=== PATIENT | male | born 1955 | race Caucasian/White ===

== ENCOUNTER 2025-03-02 18:07 | Inpatient (IN) | payer MEDICARE, SELFPAY ==
--- OUTSIDE RECORDS SUMMARY | 2023-11-23 09:38 | XMS_ITS ---
Author Organization [facility] Address [address] [place] [address] Care Team Providers Care Web Content Writer Name Role Phone Chris Menezes Primary Care Provider REASON FOR VISIT Rehab Encounters Encounter Location Date Provider Diagnosis Chris Menezes Md [address] [place], [place] [id number] 11/23/2023 Chris Menezes PLAN OF TREATMENT No Information
--- OUTSIDE RECORDS SUMMARY | 2023-12-16 05:23 | XMS_ITS ---
[facility] Address [address] [place] [address] Care Team Providers Care Forge Shop Supervisor Name Role Phone OchoaChris arriaga Primary Care Provider REASON FOR VISIT Med Rec MEDICATIONS Medication SIG (Take, Route, Frequency, Duration) Notes Start Date End Date Status Thiamine HCl 100 MG 1 tablet Orally Twic e a day Active Magnesium 400 MG as directed Orally Active Rosuvastatin Calcium 10 MG 1 tablet Oral ly Once a day for 30 day(s) Active Lisinopril 5 MG 1 tablet Orally Once a day for 30 day(s) Active Folic Acid 1 MG 1 tablet Orally Once a day for 30 day(s) Active Lisinopril 5 MG 1 tablet Orally Once a day for 90 days Active Encounters Encounter Location Date Provider Diagnosis [facility] [address] [address] 12/16/2023 Chris Menezes Neuropathy G62.9 ; T ype 2 diabetes mellitus with other diabetic kidney complication E11.29 ; Essential hypertension I10 and Anxiety F41.9 ASSESSMENTS Encounter Date Diagnosis Assessment Notes Treatment Notes Treatment Clinical Notes Section Notes 12/16/2023 Neuropathy (ICD-10 - G62.9) 12/16/2023 Type 2 diabetes mellitus with other diabetic kidney complication (ICD-10 - E11.29) 12/16/2023 Essential hypertension (ICD-10 - I10) 12/16/2023 Anxiety (ICD-10 - F41.9) PLAN OF TREATMENT Medication Medication Name Sig Start Date Stop Date Notes Amitriptyline HCl 25 MG 1 tablet at bedt britta Orally Once a day metFORMIN HCl 1000 MG TAKE ONE TABLET BY MOUTH EVERY DAY WITH A MEAL Lisinopril 20 MG 1 tablet Orally Twice a day metFORMIN HCl 1000 MG TAKE ONE TABLET BY MOUTH EVERY DAY LORazepam 0.5 MG TAKE ONE TABLET BY MOUTH EVERY DAY 2022 Furosemide 20 MG TAKE ONE TABLET BY MOUTH EVERY DAY busPIRone HCl 5 MG 1 tablet as needed O rally 3 times a day 01/06/2023 Lisinopril 5 MG 1 tablet Orally Once a day for 90 days
--- OUTSIDE RECORDS SUMMARY | 2023-12-23 06:15 | XMS_ITS ---
Author Organization [facility] Address [address] [place] [address] Care Team Providers Care Chief Clerk Shelter Name Role Phone Kelseabj Chris Primary Care [...] Location Date Provider Diagnosis [facility], [address] [place] [address] 12/23/2023 Chris Menezes Type 2 diabetes bj [...] system. There are likely to be multiple [employer] attendant inaccuracies despite chart review. PLAN OF TREATMENT [...] system. There are likely to be multiple [employer] attendant inaccuracies despite chart review. Progress Notes * [...]
--- OUTSIDE RECORDS SUMMARY | 2024-04-18 07:21 | XMS_ITS ---
Author Organization [facility] Address [address] [place] [address] Care Team Providers Care Senior Oracle Applications Developer Name Role Phone Chris Menezes Primary Care Provider [phone] REASON FOR VISIT No Shows Encounters Encounter Location Date Provider Diagnosis [facility] [address] [place] [address] 04/18/20 24 Chris Menezes PLAN OF TREATMENT No Information
[2025-03-02] VITALS (14 sets, daily range): BP systolic 76–121; BP diastolic 46–77; PULSE 83–135; RESP 17–25; TEMP 36.4–39.3; O2SAT 94–99
--- NOTE | 2025-03-02 | ECG_ITS ---
Test Reason : TACHY SEPSIS Blood Pressure : */* mmHG Vent. Rate : 131 BPM Atrial Rate : 141 BPM P-R Int : 136 ms QRS Dur : 80 ms QT Int : 308 ms P-R-T Axes : -7 -26 -2 degrees QTcB Int : 454 ms Sinus tachycardia with Premature supraventricular complexes Possible Lateral infarct , age undetermined Inferior infarct , age undetermined Abnormal ECG No previous ECGs available Referred By: Giuliano Valdovinos Electronically Signed By: ANGELI LUONG
--- NOTE | ~2025-03-02 | XR_ITS ---
CLINICAL HISTORY: sepsis 1 view chest x-ray Comparison: None provided Findings: [id number]-right bibasilar patchy opacities/atelectasis. No significant pleural effusion or pneumothorax. Prominent cardiac silhouette. No acute fracture. IMPRESSION: [id number]-right bibasilar patchy opacities/atelectasis. This document has been electronically signed by: Willard Jerez MD on 03/02/2025 19:29:05
--- NOTE | ~2025-03-02 | CT_ITS ---
CLINICAL HISTORY: abd pain shock ? mass? ascites cirrhosis CT abdomen and pelvis without contrast Comparison: None provided Findings: Please see same day CT chest report. Gynecomastia. Distended gallbladder with wall thickening, can be seen with hepatocellular disease however is nonspecific. No radiopaque gallstones. Bilateral perinephric stranding, nonspecific. No urolithiasis or hydronephrosis. Pneumoperitoneum with the pocket noted along the anterior abdominal wall as well scattered foci throughout. Diffuse small bowel mural thickening. Moderate/large colorectal stool burden. Colonic diverticulosis pronounced along the sigmoid and descending colon. Extensively diffuse colonic mural thickening more pronounced along the hepatic flexure and ascending colon, with areas of pneumatosis for example series 12, image 42, concerning for ischemia and likely perforation considering the pneumoperitoneum. Additional point of severe bowel mural thickening in the sigmoid colon with pneumatosis and irregularity, this may reflect a perforation point as well. Diffuse small bowel mural thickening. No bowel obstruction. Diffuse mesenteric edema. Fat containing inguinal hernias. Normal appendix. Small volume ascites. Bladder is contracted with mural thickening. Osteopenia with diffuse multilevel spondylosis. Extensively diffuse anasarca. Diffuse atheromatous plaque disease throughout the aorta and branch vessels, without aneurysmal dilatation. Cirrhosis. IMPRESSION: 1. Severe enterocolitis with suspected bowel ischemia and perforation along the ascending or sigmoid colon with pneumoperitoneum as described. Surgical consult advised. 2. 3rd spacing with diffuse anasarca, mesenteric edema and small volume ascites. 3. Cirrhosis. This document has been electronically signed by: Willard Jerez MD on 03/02/2025 23:04:28
--- NOTE | ~2025-03-02 | CT_ITS ---
CLINICAL HISTORY: ? perforated bowel increased free air CT abdomen and pelvis without contrast Comparison: CT abdomen and pelvis most recently earlier on 03/02/2025 Findings: Limited evaluation of soft tissues and solid organs in the absence of IV contrast. Small bilateral pleural effusions, greater on right. Cardiomegaly. Cirrhotic appearance of the liver. Spleen, kidneys and pancreas demonstrate normal nonenhanced appearance. Distended gallbladder. Calcified but nonaneurysmal abdominal aorta. Bladder is decompressed by Johnson catheter. Normal prostate. Nondistended stomach. No small bowel obstruction. Moderate colonic diverticulosis. Moderate volume intra-abdominal ascites and stranding throughout abdominopelvic mesentery. As before, there is segmental thickening throughout the colon most notably around the cecum and right ascending segment. As seen on preceding exam, there are foci of free intraperitoneal air relatively unchanged in overall volume and distribution when compared to prior exam. Continued evidence of pneumatosis throughout the colon most profound within the right ascending segment. No acute osseous abnormality. No lytic or sclerotic osseous lesions. No pathologically enlarged lymph nodes. Impression: 1. Moderate volume ascites and mesenteric edema in the setting of suspected cirrhosis. 2. Relatively unchanged volume and distribution of free intraperitoneal air along with moderate segmental wall thickening throughout colon and small bowel as well as foci of pneumatosis most evident within the right ascending/hepatic flexure colon. Constellation of these findings is therefore concerning for hollow viscus perforation until proven otherwise. In the setting of provided history of recent paracentesis, possibility of the iatrogenic pneumoperitoneum could also be considered. 3. Segmental bowel wall thickening may reflect infectious/inflammatory colitis however ischemic etiology can not be entirely excluded. In the setting of cirrhosis, congestive colopathy is also on the differential. 4. Additional chronic/nonacute findings as above. This document has been electronically signed by: Mamie Carrillo MD on 03/03/2025 01:55:17
--- NOTE | ~2025-03-02 | XR_ITS ---
CLINICAL HISTORY: Status post left internal jugular placement 1 view chest x-ray Comparison: Same date Findings: Left central line tip brachiocephalic junction. Stable left perihilar and right basilar atelectasis. No new parenchymal abnormalities noted. No pneumothorax. Heart size enlarged. No acute bony abnormalities. Impression: Left central line tip at brachiocephalic junction. Stable bilateral atelectasis. This document has been electronically signed by: Matt Guaman MD on 03/02/2025 21:39:22
--- NOTE | ~2025-03-02 | CT_ITS ---
EXAMINATION: CT SOFT TISSUE NECK WITH CONTRAST CLINICAL INFORMATION: Neck abscess from prior area of C line COMPARISON: None available. TECHNIQUE: Following the intravenous administration of 100 mL of Omnipaque 350 intravenous contrast, helical imaging was performed in the axial plane with generation of coronal and sagittal reformatted images. This CT examination was performed using dose optimization techniques as appropriate, variously including the following: *Automated exposure control *Adjustment of mA and/or kV according to patient size (this includes techniques or standardized protocols for targeted exams where dose is matched to indication/reason for exam; i.e. extremities or head) *Use of iterative reconstruction technique FINDINGS: There is bandaging overlying the left lateral neck, with a BB marker placed in the bandaging. There is no underlying mass, abnormal fluid collection, abscess, or abnormal lymph nodes present. Lymph Nodes: -No pathologic lymphadenopathy is present.. Carotid Sheath Structures: -Moderate bilateral carotid bulb calcification is present. This results in left greater than right proximal ICA stenosis, likely greater than 50% on the left. Salivary Glands: -Normal. Tongue Base/Floor of Mouth: -Normal Mucosal Space: -No abnormal enhancing mass is present in the mucosal space. -Normal epiglottis and aryepiglottic folds. -Normal soft palate. -Normal tonsillar pillar soft tissues. Visceral Space: -Thyroid gland: Normal. -Larynx is normal in appearance. The vocal folds are adducted, likely on the basis of breath hold. -The subglottic trachea is patent. -The cervical esophagus is normal. Retropharangeal Space: - Normal. Parapharyngeal Fat Planes: -Normal. Soaking Pits Supervisor Spaces: -Normal. Anterior Cervical Space: -Normal. Imaged Intracranial Contents: -No mass effect, edema, or abnormal enhancement. Cortical and dural venous sinuses are patent. The skull base is normal. Globes and Orbits: -Only partially included. Normal in appearance. Paranasal Sinuses/Mastoids/Tympanic Spaces: -Normally aerated bilaterally. Lung Apices and Superior Mediastinal Structures: -Imaged lung apices are clear and superior mediastinal structures are normal. Bony Structures: -No suspicious bone lesions. No fractures. -Normal TM joints. CT/CT soft tissue neck w IV con IMPRESSION: 1. There is no evidence of abscess or abnormal fluid collection in the left lateral neck, subjacent to the bandaging material. 2. There is no mass or abnormal lymphadenopathy within the neck. 3. Moderate left greater than right carotid bulb calcification, resulting in a probable greater than 50% stenosis of the left ICA at the origin. Electronically signed by: Melquiades Suggs MD 03/13/2025 04:21 PM EDT RP
--- NOTE | ~2025-03-02 | CT_ITS ---
CLINICAL HISTORY: pna CT chest without contrast Comparison: None provided Findings: Cardiomegaly without significant pericardial effusion. Coronary artery calcifications. The visualized thyroid and mediastinum are unremarkable. Gynecomastia. Atelectasis. Dense consolidations in the posterior lower lobes, right more than left with small right and trace left bilateral effusions. Please see same day CT abdomen pelvis report. Thoracic diffuse idiopathic skeletal hyperostosis. Osteopenia. Diffuse anasarca. IMPRESSION: Dense consolidations in the posterior lower lobes, right more than left with small right and trace left bilateral effusions. Developing pneumonia or aspiration not excluded. Attention on follow-up. This document has been electronically signed by: Willard Jerez MD on 03/02/2025 23:05:27
--- NOTE | 2025-03-02 18:40 | ED_ITS ---
HPI - Fever General Chief Complaint: General Medical Stated Complaint: tremors, back pain from snf Time Seen by Provider: 03/02/25 18:37 History of Present Illness ED Provider: Giuliano Valdovinos MD HPI Narrative: 69-year-old male with cirrhosis, ascites, hypertension diabetes from [facility] with fever tachycardia over the last few hours. Patient is chronically ill-appearing dry perhaps mildly confused. He complains of feeling dehydrated only denied a cough chest pain he does feel some abdominal distention worsened baseline. No prior paracentesis. PMH from discharge paperwork: Discharge diagnosis 02/27/2025 from [facility]: Discharge Diagnosis Anemia of chronic disease (D63.8) Ascites (R18.8) HLD (hyperlipidemia) (E78.5) HTN (hypertension) (I10) T2DM (type 2 diabetes mellitus) (E11.9) Failure to thrive in adult (R62.7) Left knee pain (M25.562) Alcohol use disorder (F10.90) Cirrhosis (K74.60) Related Data Allergies Allergy/AdvReac Type Severity Reaction Status Date / Time No Known Allergies Allergy Verified 03/02/25 18:37 [facility] Social History Social History Alcohol intake: former Smoked in Last 30 Days: No Use of substances other than those prescribed or required for medical reasons: No Do you have a plan to hurt others: No Plan Physical Exam 2 Exam: Exam: EXAM: Gen: Chronically ill-appearing, anasarca. Pale with swollen extremities and abdomen. I do not see this but he was covered in feces on arrival thin malodorous diarrhea. Per staff Head: Atraumatic Eyes: Anicteric, Normal conjunctiva. ENT: Moist mucosa, no pallor. ? Neck: JVD Skin: ?No observable rash or bruising on exposed or examined skin Respiratory: Shallow breathing without wheezing or stridor. Diminished air entry due to massive abdominal distention Cardiovascular: Regular rate and rhythm. No murmurs or rub. Well perfused periphery, warm extremities. Pitting edema up the legs bilaterally. Mottling to the feet and knees but brisk cap refill of the toes ? Abdominal: Massive distention with fluid wave moderately tender throughout. No skin lesions : No flank tenderness. Neuro: Alert. Gross movement of all extremities intact. ? Psych: Calm. Cooperative. MSK: No grossly visible deformity. Vital signs: See flowsheet Vital Signs: Vital Signs: Last Vital Signs Temp 98.0 F 03/02/25 20:50 Pulse 94 03/02/25 20:50 Resp 18 03/02/25 20:50 BP 84/57 L 03/02/25 20:50 Pulse Ox 99 03/02/25 18:22 O2 Del Method Nasal Cannula 03/02/25 19:55 Oxygen Flow Rate 4 03/02/25 18:22 BMI result Body Mass Index 30.0 Course Reevaluation(s) Reevaluation #1: Sepsis activated on arrival. Patient appears massively fluid overloaded with distended abdomen ascites severe swelling and anasarca. I think he can still tolerate intravascular fluid but I feel it is more reasonable to calculate ideal body weight for 30 cc/kg bolus secondary to this increased fluid weight ideal body weight calculation as below I will give him 2 L LR as crystalloid bolus to meet this criteria. [place] Body Weight and Adjusted Body Weight from [employer] website on 03/02/2025 All calculations should be rechecked by clinician prior to use RESULT SUMMARY: 146 lbs [place] Body Weight Equivalent to 66 kg INPUTS: Sex ?> 0 = Male Height ?> 67 in Reevaluation #2: 8:57 PM 03/02/2025 (Dr. Giuliano Valdovinos): Focused sepsis re-evaluation /exam performed Medications Administered Generic Name Dose Route Start Last Admin Trade Name Freq PRN Reason Stop Dose Admin Lactated Ringer's 1,000 mls @ 999 mls/hr 03/02/25 19:00 03/02/25 19:15 Lr IV 03/02/25 21:00 999 mls/hr .Q1H1M BLAYNE Administration Albumin Human 100 mls @ 133.333 mls/hr 03/02/25 20:00 03/02/25 20:10 Kedbumin 25 % IV 03/02/25 21:44 133.33 mls/hr Q1H BLAYNE Administration Discontinued Medications Generic Name Dose Route Start Last Admin Trade Name Freq PRN Reason Stop Dose Admin Ceftriaxone Sodium 1 gm 03/02/25 18:37 03/02/25 19:20 Ceftriaxone Sodium 1 Gm Vial IVPUSH 03/02/25 18:38 1 gm ONCE ONE Administration Ceftriaxone Sodium 1 gm 03/02/25 19:21 03/02/25 20:33 Ceftriaxone Sodium 1 Gm Vial IVPUSH 03/02/25 19:22 1 gm ONCE ONE Administration Fentanyl 100 mcg 03/02/25 18:52 03/02/25 19:34 Fentanyl Citrate/Pf 100 Mcg/2 Ml Vial IVPUSH 03/02/25 18:53 100 mcg ONCE ONE Administration Protocol Acetaminophen 1,000 mg in 100 mls @ 400 mls/hr 03/02/25 18:45 03/02/25 19:35 Ofirmev IV 03/02/25 18:59 400 mls/hr ONCE ONE Administration Vancomycin HCl 2,000 mg in 500 mls @ 250 mls/hr 03/02/25 18:45 03/02/25 19:35 Vancomycin/Ns IV 03/02/25 20:44 250 mls/hr ONCE ONE Administration Procedures Procedure Narrative Procedure Narrative: PROCEDURE NOTE Procedure: Paracentesis Performed by: Giuliano Valdovinos MD Indication: rule out spontaneous bacterial peritonitis / therapeutic [place] Protocol: a time out was performed and the correct patient and site were verified ? Procedure: The ascitic fluid collection was identified by ultrasound. Local anesthesia with 5 ml 1% lidocaine infiltrated at site. The site was prepped with chlorhexidine/betadine and full barrier precautions were employed. Under sterile conditions, the patient was placed in the left lateral decubitus position.? Fifty ml of fluid description ascitic fluid was obtained. Samples were sent for appropriate studies. Eventually full amount of ascites taken off was: 3 L ? Post-Procedure Diagnosis: same as indication Complications: none There was a requirement for [id number] 4-0 Prolene suture closure of the wound Estimated Blood Loss:? minimal Specimens Removed: as documented above Prosthetic devices/implants: no Signing Agent(s): none ?CPT: 47467 __ EMERGENCY ULTRASOUND INTERPRETATION-Point of Care abdominal ultrasound [This study was ordered, performed, and interpreted by myself. The study reveals: Impression: -Peritoneum: Large volume ascites [Indication: Abdominal distention and sepsis with cirrhosis Fluid (FAST Views): -Retrovesical/Pelvic: Positive Other views: Performed by: Giuliano Valdovinos MD Images were stored CPT: 18150, Central Line Placement Left IJ: Time Out Performed: Yes Central Line Prep: Chlorhexidine scrub Local Anesthetic: lidocaine 1% Amount of anesthesia used (mL): 5 Ultrasound Used for Placement: Yes Central Line Lumen Inserted: triple Post Procedure: sutured in place, good blood return, all ports aspirated, flushed, capped and sterile dressing applied Post Procedure X-Ray: tip of catheter in good position Patient Tolerated Procedure: well Complications: none Medical Decision Making Medical Decision Making MDM Narrative: Medical Decision Makin-year-old male with cirrhosis end-stage liver disease ascites recently hospitalized in the [facility] system he had falls and was living in a unsafe environment was hospitalized for just a few days apparently had no complications he was imaged because he had fallen with no traumatic injuries. He has been in a fdc since that time on lactulose spironolactone/Lasix and other medications. Spiked a fever today arrived with a severe diarrhea covered in feces tachycardic and febrile. Sepsis activated. [place] body weight fluid bolus, broad-spectrum antibiotics, labs x-ray and peritoneal fluid obtained. Patient appears somewhat confused ammonia sent for possible hepatic encephalopathy. Preliminary Favored Differential Diagnosis: Hepatic encephalopathy, sepsis, pneumonia, UTI, SBP, paracentesis paracentesis among additional considered etiologies Testing Interpreted Independently: ECG interpretation below Chest x-ray 2. Postprocedure shows adequate position of the left internal jugular Radiology or Lab testing Results Reviewed: ?Brief summary of lab review no leukocytosis. Hemoglobin 13. Lactate elevated 4.3 likely secondary to sepsis complicated by underlying cirrhotic disease with poor lactate clearance. Low albumin. Consults: Field Superintendent Independent Historians/External Chart Reviews: ?I independently reviewed discharge summary from 02/27/2025 from [facility] Social Determinants of Health Impacting MDM/Planning: ?See below for details Admission/Observation Consideration of admission/observation: Escalation of care including admission/observation considered Consult Healthcare Provider Management of the patient was discussed with: Hospitalist (Field Superintendent) Lab Data MDM Lab Attestation statement: I reviewed the patient's lab results. 03/02/25 18:51 03/02/25 18:51 Labs: Lab Results 03/02/25 03/02/25 03/02/25 Range/Units 18:51 19:11 19:12 WBC 7.8 (4.8-10.8) X10*3/uL RBC 4.14 L (4.60-5.80) X10*6/uL Hgb 13.2 L (14.0-18.0) g/dl Hct 39.4 L (42.0-52.0) % MCV 95.2 (80.0-98.0) fL MCH 31.9 (27.0-33.0) pg MCHC 33.5 (31.0-36.0) g/dl RDW 13.8 (11.0-16.0) % Plt Count 218 (160-400) X10*3/uL MPV 9.2 L (9.4-12.4) fL Immature Gran % (Auto) 0.4 (0.0-0.4) % Neut % (Auto) 95.6 H (45-73) % Lymph % (Auto) 3.2 L (20-40) % Whitley % (Auto) 0.4 L (2-11) % Eos % (Auto) 0.1 (0-4) % Baso % (Auto) 0.3 (0-2) % Lymph # (Auto) 0.3 L (1.2-4.9) X10*3/uL [place]ley # (Auto) 0.0 L (0.1-1.2) X10*3/uL Eos # (Auto) 0.0 (0.0-0.4) X10*3/uL Baso # (Auto) 0.0 (0.0-0.2) X10*3/uL Abs Immat Gran (auto) 0.03 (0.00-0.03) X10*3/uL Absolute Neuts (auto) 7.4 (2.0-8.3) x10*3/uL Absolute Nucleated RBC 0.000 (0.0-0.012) X10*3/uL Nucleated RBC % (auto) 0.0 (0.0-0.2) /100WBC PT 13.5 H (10.9-12.4) SEC INR 1.2 H (0.9-1.1) APTT 27.0 (26.7-34.1) SEC Sodium 133 L (135-145) mmol/L Potassium 4.3 (3.3-5.1) mmol/L Chloride 98 (96-108) mmol/L Carbon Dioxide 27 (22-29) mmol/L Anion Gap 12 (12-20) BUN 15 (9-16) mg/dL Creatinine 0.77 (0.5-1.4) mg/dL Estim Creat Clear Calc 95.3 Estimated GFR > 60 Random Glucose 100 (60-115) mg/dL Lactic Acid 4.3 H* (0.5-2.0) mmol/L Calcium 8.8 (8.4-10.2) mg/dL Total Bilirubin 1.0 (0.0-1.0) mg/dL AST 60 H (5-37) U/L ALT 22 (0-40) U/L Alkaline Phosphatase 149 H (39-117) U/L Ammonia 50 (13-55) umol/L Troponin I High Sens 12.5 (<3.5-35.0) ng/L NT-Pro-B Natriuret Pep 1503.9 H (<300) pg/mL Total Protein 6.1 L (6.5-8.0) g/dL Albumin 2.7 L (3.5-5.0) g/dL Lipase 16 (8-78) U/L COVID-19 (RALPH) (Negative) COVID-19 Clin Com Influenza Type A (MARCELLO) (Negative) Influenza Type B (MARCELLO) (Negative) Influenza A & B Note 03/02/25 Range/Units 19:40 WBC (4.8-10.8) X10*3/uL RBC (4.60-5.80) X10*6/uL Hgb (14.0-18.0) g/dl Hct (42.0-52.0) % MCV (80.0-98.0) fL MCH (27.0-33.0) pg MCHC (31.0-36.0) g/dl RDW (11.0-16.0) % Plt Count (160-400) X10*3/uL MPV (9.4-12.4) fL Immature Gran % (Auto) (0.0-0.4) % Neut % (Auto) (45-73) % Lymph % (Auto) (20-40) % [place] % (Auto) (2-11) % Eos % (Auto) (0-4) % Baso % (Auto) (0-2) % Lymph # (Auto) (1.2-4.9) X10*3/uL [place] # (Auto) (0.1-1.2) X10*3/uL Eos # (Auto) (0.0-0.4) X10*3/uL Baso # (Auto) (0.0-0.2) X10*3/uL Abs Immat Gran (auto) (0.00-0.03) X10*3/uL Absolute Neuts (auto) (2.0-8.3) x10*3/uL Absolute Nucleated RBC (0.0-0.012) X10*3/uL Nucleated RBC % (auto) (0.0-0.2) /100WBC PT (10.9-12.4) SEC INR (0.9-1.1) APTT (26.7-34.1) SEC Sodium (135-145) mmol/L Potassium (3.3-5.1) mmol/L Chloride (96-108) mmol/L Carbon Dioxide (22-29) mmol/L Anion Gap (12-20) BUN (9-16) mg/dL Creatinine (0.5-1.4) mg/dL Estim Creat Clear Calc Estimated GFR Random Glucose (60-115) mg/dL Lactic Acid (0.5-2.0) mmol/L Calcium (8.4-10.2) mg/dL Total Bilirubin (0.0-1.0) mg/dL AST (5-37) U/L ALT (0-40) U/L Alkaline Phosphatase (39-117) U/L Ammonia (13-55) umol/L Troponin I High Sens (<3.5-35.0) ng/L NT-Pro-B Natriuret Pep (<300) pg/mL Total Protein (6.5-8.0) g/dL Albumin (3.5-5.0) g/dL Lipase (8-78) U/L COVID-19 (RALPH) Negative (Negative) COVID-19 Clin Com See Note Influenza Type A (MARCELLO) Negative (Negative) Influenza Type B (MARCELLO) Negative (Negative) Influenza A & B Note See Note Independent Interpretation I performed an independent interpretation of an: EKG (Tachycardic irregular but sinus. Rate 131 no ischemic changes. Question multifocal atrial tachycardia) External Record Review External record reviewed: Inpatient record Copied text from inpatient discharge summary 02/27/2025 [facility]: ?This is a 69 year old male with history of HTN, HLD, T2DM, alcoholic liver cirrhosis who is brought to the ER with concerns for his well being. He called 911 on himself on 02/21, was found laying on his floor covered in excrement of himself and his pets, the home was unfit for living. He had been having pain in his left knee, falling frequently because it was giving out on him, and crawling around on the floor to get around. He denied any other injury. Denies current alcohol use. He was observed in the ER for several days. His lab work was stable/unremarkable. CT head, cervical spine, CXR and knee XR were all without traumatic injury or acute process. He has mild osteoarthritis in the knee. CT abdomen later done was without significant findings. He has been boarding in the ER for several days, thus admitted to medicine pending further disposition.? ? Prescription Management I considered prescription management with: Antibiotic Chronic Conditions Patient?s care impacted by: Other (Liver disease ascites) Critical Care Time Critical Care Time Critical Care Time: Yes Total Critical Care Time: 100 Attestation: ED Critical Care: Severe sepsis, acute decompensated liver Authorized and Performed by: Giuliano Valdovinos MD Total critical care time: Approximately 100 min Due to a high probability of clinically significant, life threatening deterioration, the patient required my highest level of preparedness to intervene emergently and I personally spent this critical care time directly and personally managing the patient. This critical care time included obtaining a history; examining the patient; pulse oximetry; ordering and review of studies; arranging urgent treatment with development of a management plan; evaluation of patient's response to treatment; frequent reassessment; and, discussions with other providers. This critical care time was performed to assess and manage the high probability of imminent, life-threatening deterioration that could result in multi-organ failure. It was exclusive of separately billable procedures and treating other patients and teaching time. Discharge Plan Discharge Clinical Impression: Severe sepsis Patient Disposition: Admitted As Inpatient
[2025-03-02 19:09] LABS: Hematocrit 39.4 % (42.0-52.0); Hemoglobin 13.2 g/dl (14.0-18.0); Imm Gran Abs Auto 0.03 X10*3/uL (0.00-0.03); Imm Gran Pct Auto 0.4 % (0.0-0.4); Lymphocytes Absolute Auto 0.3 X10*3/uL (1.2-4.9); MANUAL DIFF FLAG SCAN; Mean Corpuscular HGB Conc 33.5 g/dl (31.0-36.0); Mean Corpuscular Hemoglobin 31.9 pg (27.0-33.0); Mean Corpuscular Volume 95.2 fL (80.0-98.0); NRBC Abs Auto 0.000 X10*3/uL (0.0-0.012); NRBC Pct Auto 0.0 /100WBC (0.0-0.2); Platelet Count 218 X10*3/uL (160-400); Red Blood Count 4.14 X10*6/uL (4.60-5.80); SCAN SMEAR FLAG 1; White Blood Count 7.8 X10*3/uL (4.8-10.8)
[2025-03-02] MEDS: Lactated Ringers 1,000 ML 999 ML IV ×2 (19:15→20:50)
[2025-03-02 19:19] LABS: INTERNATIONAL NORM RATIO 1.2 (0.9-1.1); Prothrombin Time 13.5 SEC (10.9-12.4)
[2025-03-02 19:21] LABS: Partial Thromboplastin Time 27.0 SEC (26.7-34.1)
[2025-03-02 19:34] LABS: Alanine Aminotransferase 22 U/L (0-40); Albumin Level 2.7 g/dL (3.5-5.0); Alkaline Phosphatase 149 U/L (39-117); Anion Gap 12 (12-20); Aspartate Amino Transferase 60 U/L (5-37); Blood Urea Nitrogen 15 mg/dL (9-16); Calcium 8.8 mg/dL (8.4-10.2); Carbon Dioxide 27 mmol/L (22-29); Chloride 98 mmol/L (96-108); Creatinine Clr Calc Pharmacy 95.3; Estimated Glomerular Filt Rate > 60; Lipase 16 U/L (8-78); Potassium 4.3 mmol/L (3.3-5.1); Sodium 133 mmol/L (135-145); Total Protein 6.1 g/dL (6.5-8.0)
[2025-03-02] MEDS: vancomycin/NS 2,000 MG/500 ML PLAST..BAG 250 MG IV (19:35)
[2025-03-02 19:44] LABS: Ammonia 50 umol/L (13-55)
[2025-03-02 19:58] LABS: NT Pro B Type Natriuretic Pept 1503.9 pg/mL (<300); Troponin-I High Sensitivity 12.5 ng/L (<3.5-35.0)
[2025-03-02] MEDS: Albumin Human 25 % 100 ML 133.33 ML IV ×3 (20:10→23:17)
[2025-03-02 20:12] LABS: COVID-19 Test Negative (Negative); IDNOW Serial# 6674DD1D
[2025-03-02 20:16] LABS: IDNOW Serial# 08D9AD1C; Influenza B2 Negative (Negative)
--- NOTE | 2025-03-02 20:50 | PC.NURSE ---
2L LR hung at 191, completed at 2049. (MAR documentation was saved incorrectly after scanning 1L.)
--- NOTE | 2025-03-02 21:00 | PC.NURSE ---
Delay in vancomycin completion due to pt requiring bedside paracentesis, becoming hypotensive, requiring multiple medications and central line placement. MD aware and @ bedside.
[2025-03-02 21:03] LABS: Reflex Lactate? Lactic Acid Added
--- OUTSIDE RECORDS SUMMARY | 2025-03-02 21:07 | XMS_ITS | Patient Health Record ---
[facility] Address [address] [place] [address] Care Team Providers Care Maintenance Instructor Name Role Phone Chris Menezes Primary Care Provider ALLERGIES No Known Allergies REASON FOR REFERRAL No Information MEDICATIONS Medication SIG (Take, Route, Frequency, Duration) Notes Start Date End Date Status metFORMIN HCl 1000 MG TAKE ONE TABLET BY MOUTH EVERY DAY Active Rosuvastatin Calcium 10 MG TAKE ONE TABL ET BY MOUTH EVERY DAY for 90 Active Lisinopril 5 MG 1 tablet Orally Once a day for 30 day(s) Active Rosuvastatin Calcium 10 MG 1 tablet Oral ly Once a day Active Lisinopril 20 MG 1 tablet Orally Twic e a day Active Furosemide 20 MG TAKE ONE TABLET BY M OUTH EVERY DAY Active Magnesium 400 MG as directed Orally Active Thiamine HCl 100 MG 1 tablet Orally Twic e a day Active Rosuvastatin Calcium 10 MG 1 tablet Oral ly Once a day for 30 day(s) Active Folic Acid 1 MG 1 tablet Orally Once a day for 30 day(s) Active Amitriptyline HCl 25 MG 1 tablet at bedt britta Orally Once a day Active Lisinopril 5 MG 1 tablet Orally Once a day for 90 days Active IMMUNIZATIONS Vaccine Route Administration Date Status Comme nts *Influenza (Fluarix Quad) IM Intramuscular 03/26/2020 Admi nistered *Influenza (Fluarix Quad) IM Intramuscular 05/05/2022 Admi nistered Influenza (Flucelvax Quad) Unknown 03/14/2021 Administe red Pneumococcal IM Intramuscular 10/05/2014 Administered Pneumococcal IM Intramuscular 03/26/2020 Administered SOCIAL HISTORY Tobacco Use: Social History Observation [...] Never (0 point) Points 5 Interpretation Positive PROBLEMS Problem Type ICD Code Onset Dates Problem Status W/U Status Risk SNOMED Code Notes Problem Anxiety (F41.9) Active confirmed 351338 02 Problem Neuropathy (G62.9) Active confirmed 370979560 Problem Anxiety disorder, unspecified (F41.9) Active confirmed Anxiety disorde r (367544711) Problem Generalized anxiety disorder (F41.1) Active confirmed 37783659 Problem Type 2 diabetes mellitus 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) Active confirmed 36110721 Problem Primary insomnia (F51.01) Active confirmed 8331777 Problem Mixed hyperlipidemia (E78.2) Active confirmed 375456037 Problem Obstructive sleep apnea (G47.33) Active confirmed 02488910 Problem Type 2 diabetes mellitus without complication (E11.9) Active confirmed Type II diabete s mellitus without complication (324827611) Problem Essential hypertension (I10) Active confirmed 25560460 Problem Allergic rhinitis, unspecified allergic rhinitis type (J30.9) Active confirmed 06944907 Problem Osteoarthritis of both hips, unspecified osteoarthritis type (M16.0) Active confirmed 899461038 Problem detention (current) use of oral hypoglycemic drugs (Z79.84) Active confirmed 042723395544342 Problem Type 2 diabetes mellitus with diabetic mononeuropathy, without long-term current use of insulin (E11.41) Active confirmed Mononeuropa thy associated with type II diabetes mellitus (372342416) Encounters Encounter Location Date Provider Diagnosis [facility] [address] [address] 04/18/20 24 Chris Menezes PLAN OF TREATMENT Pending Test Test Name Order Date MRI : Lumbosacral Spines 01/18/2017 Colonoscopy 01/29/2022 GUAIAC, SINGLE SPECIMEN 12/19/2019 GUAIAC, SINGLE SPECIMEN 11/23/2016 GUAIAC, SINGLE SPECIMEN 10/11/2015 GUAIAC, SINGLE SPECIMEN 11/30/2017 *EKG 12/20/2012 Drain/Inject Joint/Bursa (MEDIUM) 2017 PSA 11/23/2016 PSA 07/10/2019 PSA 07/20/2017 PSA 06/21/2014 PSA 10/01/2015 HEMOGLOBIN A1C 06/21/2014 HEMOGLOBIN A1C 10/01/2015 HEMOGLOBIN A1C 03/16/2017 HEMOGLOBIN A1C 07/10/2019 HEMOGLOBIN A1C 12/24/2020 HEMOGLOBIN A1C 12/19/2019 HEMOGLOBIN A1C 10/05/2014 HEMOGLOBIN A1C 07/20/2017 HEMOGLOBIN A1C 01/28/2015 HEMOGLOBIN A1C 11/23/2016 HEMOGLOBIN A1C 01/14/2016 HEMOGLOBIN A1C 06/10/2015 HEMOGLOBIN A1C 03/06/2014 HEMOGLOBIN A1C 07/23/2016 HEMOGLOBIN A1C 04/22/2016 COMPREHENSIVE METABOLIC PANL 07/10/2019 COMPREHENSIVE METABOLIC PANL 07/20/2017 COMPREHENSIVE METABOLIC PANL 10/01/2015 COMPREHENSIVE METABOLIC PANL 06/21/2014 LIPID PANEL 06/21/2014 LIPID PANEL 07/10/2019 LIPID PANEL 12/24/2020 LIPID PANEL 07/20/2017 LIPID PANEL 01/28/2015 LIPID PANEL 04/22/2016 LIPID PANEL 11/23/2016 HEPATIC FUNCTION PANEL 04/22/2016 HEPATIC FUNCTION PANEL 11/23/2016 HEPATIC FUNCTION PANEL 01/28/2015 HEPATIC FUNCTION PANEL 12/24/2020 THYROID PANEL 07/10/2019 THYROID PANEL 07/20/2017 THYROID PANEL 06/21/2014 THYROID PANEL 10/01/2015 URINARY MICROALBUMIN 10/01/2015 URINARY MICROALBUMIN 06/21/2014 URINARY MICROALBUMIN 07/10/2019 URINARY MICROALBUMIN 07/20/2017 25OH VITAMIN D 07/20/2017 25OH VITAMIN D 07/10/2019 25OH VITAMIN D 10/01/2015 25OH VITAMIN D 06/21/2014 COMPLETE CBC WITH DIFF 06/21/2014 COMPLETE CBC WITH DIFF 10/01/2015 COMPLETE CBC WITH DIFF 07/10/2019 COMPLETE CBC WITH DIFF 07/20/2017 LYME AB 04/22/2016 URINE DIPSTICK 06/21/2014 COMPLETE URINALYSIS 10/01/2015 COMPLETE URINALYSIS 07/20/2017 COMPLETE URINALYSIS 07/10/2019 25OH VITAMIN D 10/21/2021 25OH VITAMIN D 12/15/2022 AMMONIA, VENOUS 01/29/2022 CBC (COMPLETE BLOOD COUNT) WITH DIFF CBC (COMPLETE BLOOD COUNT) WITH DIFF COMPREHENSIVE METABOLIC PANEL 10/21/2021 COMPREHENSIVE METABOLIC PANEL 12/15/2022 GGTP 01/29/2022 HEMOGLOBIN A1C 04/09/2021 HEMOGLOBIN A1C 01/29/2022 HEMOGLOBIN A1C 10/21/2021 HEMOGLOBIN A1C 05/05/2022 HEMOGLOBIN A1C 04/28/2023 HEMOGLOBIN A1C 12/15/2022 HEPATIC FUNCTION PANEL 05/05/2022 LIPID PANEL 05/05/2022 LIPID PANEL 12/15/2022 LIPID PANEL 10/21/2021 MICROALBUMIN, URINE 10/21/2021 MICROALBUMIN, URINE 12/15/2022 PSA, SCREEN 10/21/2021 PSA, SCREEN 12/15/2022 THYROID PANEL (TSH, FT4) 12/15/2022 THYROID PANEL (TSH, FT4) 10/21/2021 URINALYSIS, COMPLETE 12/15/2022 URINALYSIS, COMPLETE 10/21/2021 Insurance Providers Payer Name Payer Address Payer Phone Subscriber Number Group Number Insured Name Patient Relationship to Insured Coverage Start Date Coverage End Date [facility] [address] [place] [address] [phone] [id number] Maxim Rice Self - patient is the insured MEDICAL (GENERAL) HISTORY Medical History History ICD Code HTN DM2 Hyperlipidemia COPD Sleep Apnea Allergic Rhinitis Surgical History Surgery Date(Month/Year) tonsillectomy as a child Hospitalization History Reason Date(Month/Year) for above procedure
--- NOTE | 2025-03-02 21:14 | PM.CCHP ---
History of Present Illness Date of Service: 03/02/25 Attending physician on admission: Dany Bah Chief Complaint: Acute septic shock, acute hypovolemic shock 69-year-old male with underlying alcohol related cirrhosis, ascites, type 2 diabetes, hyperlipidemia, hypertension, anemia of chronic disease who is a resident of senior care facility, was transported to the emergency room due to complaints of tremors, back pain, fever and tachycardia.? The patient states that he has been feeling sick for the past 24 hours but worse today, he feels thirsty, admits having some generalized malaise and mild cough without any sputum production.? However he states that he had excruciating pain in his abdomen since last night and out of 10, in a diffuse manner without any other radiation, nothing made it better or worse but some how his pain got better later on this mid afternoon and is now somewhat tolerable around 5/10.? Denies any nausea, vomiting. In the emergency room, the patient was noted to be febrile 102.8, tachycardic at 01:35, tachypneic 25, initially borderline hemodynamically stable but suddenly became hypotensive with the lowes blood pressure of 76/50, he did receive 2 L of IV fluids, 1 bag of albumin, Rocephin and vancomycin.? The rest of his workup showed no white count, H and H of 13.2 and 39.4 respectively, platelets 218, PT 13.5 INR 1.2, sodium 131, potassium 4.2, chloride 100, carbon dioxide 23, anion gap 12, BUN 15, creatinine 0.73, random glucose 188, lactic acid 4.3, repeated lactic acid 4.9, calcium 8.1, total bilirubin 0.8 albumin 2.7, lipase 16.? Peritoneal fluid analysis is pending.? Respiratory workup negative.? Chest x-ray shows left greater than right bibasilar patchy opacities and/or atelectasis.? Follow-up x-ray after triple-lumen placement shows the tip of the CVL at the brachiocephalic junction. ?However there are no abdominal images. I will request CT chest, abdomen and pelvis images, I have also asked them to start him on high concentration Levophed, to stop all IV fluids and to transfer him to the ICU for further care. ? Review of Systems Review of Systems: Review of systems: As above, otherwise the patient denies any prior history of strokes, cold intolerance, migraine headaches, head trauma, no eyes, ears or nose problems, no problems swallowing or with phonation, no thyroid disease, denies any history of chest pain, palpitations, coronary disease, cough, sputum production, pneumonia, bronchitis, COPD or emphysema, abdominal pain, nausea, vomiting, diarrhea, abdominal surgeries, melena, hematochezia, hematemesis, hematuria, kidney stones, immunocompromise state of any kind, no history of DVT or PE, fractures or extremity surgeries all other review of systems were reviewed and they were all negative. [facility] Social History Social History Housing: Other Housing Other:: [facility] Alcohol intake: former Patient Tobacco Use Status: Former Tobacco user Smoked in Last 30 Days: No Use of substances other than those prescribed or required for medical reasons: No Currently Displaying Signs/Symptoms of Drug Intoxication Withdrawal: No Have you been hit, kicked, punched, or otherwise hurt by someone within the past year? If so, by whom?: No Do you feel safe in your current relationship?: No Current Relationship Is there a partner from a previous relationship who is making you feel unsafe now?: No Are you made to feel afraid or neglected: No Advance Directives: Yes Advance Directives on File: Yes Advance Directives Date on File: 03/02/25 Do you have a plan to hurt others: No Plan Recently lost weight without trying: Unsure Eating poorly because of decreased appetite: No Nutrition Risks: No Nutritional Risk Poor oral hygiene: Yes Meds Allergies Allergy/AdvReac Type Severity Reaction Status Date / Time No Known Allergies Allergy Verified 03/02/25 18:37 Active Medications: Current Medications Albumin Human (Kedbumin 25 %) 100 mls @ 133.333 mls/hr IV Q1H [facility] Stop: 03/02/25 21:44 Last Admin: 03/02/25 20:10 Dose: 133.33 mls/hr Norepinephrine Bitartrate (Levophed) 8 mg in 250 mls @ 0 mls/hr IVCONT .Q0M [facility]; Protocol Norepinephrine Bitartrate (Levophed) 32 mg in 250 mls @ 0 mls/hr IVCONT .Q0M [facility]; Protocol Albumin Human (Kedbumin 25 %) 100 mls @ 133.333 mls/hr IV Q1H [facility] Stop: 03/02/25 22:59 Piperacillin Sod/Tazobactam (Sod 3.375 gm/ Sodium Chloride) 50 mls @ 100 mls/hr IV Q6H [facility] Home Medications ?Medication ?Instructions ?Recorded ?Confirmed ?Last Taken ?Type bisacodyl 10 mg rectal suppository 10 mg LA DAILY PRN Constipation 03/02/25 03/02/25 Unknown History cetylpyridinium chloride 1 cecelia mucous membrane Q3H PRN Sore 03/02/25 03/02/25 Unknown History Throat folic acid 1 mg tablet 1 mg PO DAILY 03/02/25 03/02/25 Unknown History furosemide 20 mg tablet 30 mg PO DAILY 03/02/25 03/02/25 Unknown History ibuprofen 600 mg tablet 600 mg PO BID 03/02/25 03/02/25 Unknown History lactulose 10 gram/15 mL oral 15 ml PO DAILY 03/02/25 03/02/25 Unknown History solution magnesium hydroxide 400 mg/5 mL 30 ml PO DAILY PRN Constipation 03/02/25 03/02/25 Unknown History oral suspension (Milk of Magnesia) methyl salicylate-menthol topical 1 appl topical BID PRN knee pain 03/02/25 03/02/25 Unknown History cream naltrexone 50 mg tablet 25 mg PO DAILY 03/02/25 03/02/25 Unknown History sodium phosphates 19 gram-7 118 ml LA DAILY PRN Constipation 03/02/25 03/02/25 Unknown History gram/118 mL enema (Fleet Enema) acetaminophen 325 mg tablet 650 mg PO Q4H PRN pain or fever 03/03/25 03/03/25 Unknown History >101 acetaminophen 650 mg rectal 650 mg LA Q4H PRN pain or fever 03/03/25 03/03/25 Unknown History suppository >101 nicotine 7 mg/24 hr daily 1 patch transdermal Q24H 03/03/25 03/03/25 Unknown History transdermal patch pyridoxine (vitamin B6) 50 mg 50 mg PO DAILY 03/03/25 03/03/25 Unknown History tablet sennosides 8.6 mg tablet (senna) 17.2 mg PO DAILY 03/03/25 03/03/25 Unknown History spironolactone 25 mg tablet 25 mg PO DAILY 03/03/25 03/03/25 Unknown History thiamine HCl (vitamin B1) 100 mg 100 mg PO BID 03/03/25 03/03/25 Unknown History tablet Physical Exam Vital Signs: Vital Signs: Last Vital Signs Temp 98.0 F 03/02/25 20:50 Pulse 99 03/02/25 20:56 Resp 18 03/02/25 20:56 BP 92/52 L 03/02/25 20:56 Pulse Ox 99 03/02/25 20:56 O2 Del Method Nasal Cannula 03/02/25 20:56 O2 Flow Rate 2 03/02/25 20:56 Oxygen Flow Rate 4 03/02/25 18:22 BMI result Body Mass Index 30.0 Sepsis exam done at 21:00 General:? Alert orientedto person not to place or time. No accessory muscle usage.? Following all commands. Skin:? Edematous throughout from the feet all the way up to the scrotum in sacral area, abdomen.? There is hyperpigmented area in the anterior tibials bilateral left more than right. HEENT:? Head is normocephalic, atraumatic, pupils equal. Buccal mucosa is dry.? Cardiac:? Clear S1-S2, no murmurs rubs or gallops.? Left IJ triple-lumen. Pulmonary:? Diminished lung sounds bilaterally fine expiratory wheezing bilaterally .? Coarseness and fine rhonchi are noted at the right base more than left.? Minimal crackles.? Abdomen:? Protuberant, large, distended, there is no tenderness to percussion, there is however tenderness over the right upper and left lower quadrant upon light and more so with deep palpation, minimal rebound, no guarding. No CVA tenderness. Musculoskeletal:? Moving all 4 extremities upon request a major joints, there is no crepitus or tenderness.? The strength is 5/5 bilaterally and throughout all 4 extremities.? There is leg edema as above noted , no calf tenderness , no leg asymmetry.? Gait not assessed at this point. Neurologic:? As above.? No focal deficits noted. Vascular:? 2+ pulses upper extremities, lower extremity pulses 1+ with Doppler and difficult to assess due to significant edema..? Less than 2nd capillary refill of fingers and toes bilaterally upper and lower extremities Results Labs 03/03/25 04:57 03/03/25 04:56 Labs: Laboratory Results - last 24 hr 03/02/25 03/02/25 03/02/25 18:51 19:11 19:12 MCV 95.2 MCH 31.9 MCHC 33.5 RDW 13.8 Plt Count 218 MPV 9.2 L Immature Gran % (Auto) 0.4 Neut % (Auto) 95.6 H Lymph % (Auto) 3.2 L Brule % (Auto) 0.4 L Eos % (Auto) 0.1 Baso % (Auto) 0.3 Lymph # (Auto) 0.3 L Brule # (Auto) 0.0 L Eos # (Auto) 0.0 Baso # (Auto) 0.0 Abs Immat Gran (auto) 0.03 Absolute Neuts (auto) 7.4 Absolute Nucleated RBC 0.000 Nucleated RBC % (auto) 0.0 Smear Tech's Comments VERIFIED PT 13.5 H INR 1.2 H APTT 27.0 Anion Gap 12 Estim Creat Clear Calc 95.3 Estimated GFR > 60 Random Glucose 100 Lactic Acid 4.3 H* Calcium 8.8 Total Bilirubin 1.0 AST 60 H ALT 22 Alkaline Phosphatase 149 H Ammonia 50 Troponin I High Sens 12.5 NT-Pro-B Natriuret Pep 1503.9 H Total Protein 6.1 L Albumin 2.7 L Lipase 16 COVID-19 ([facility]) COVID-19 Clin Com Influenza Type A (MARCELLO) Influenza Type B (MARCELLO) Influenza A & B Note 03/02/25 19:40 MCV MCH MCHC RDW Plt Count MPV Immature Gran % (Auto) Neut % (Auto) Lymph % (Auto) Brule % (Auto) Eos % (Auto) Baso % (Auto) Lymph # (Auto) Brule # (Auto) Eos # (Auto) Baso # (Auto) Abs Immat Gran (auto) Absolute Neuts (auto) Absolute Nucleated RBC Nucleated RBC % (auto) Smear Tech's Comments PT INR APTT Anion Gap Estim Creat Clear Calc Estimated GFR Random Glucose Lactic Acid Calcium Total Bilirubin AST ALT Alkaline Phosphatase Ammonia Troponin I High Sens NT-Pro-B Natriuret Pep Total Protein Albumin Lipase COVID-19 ([facility]PH) Negative COVID-19 Clin Com See Note Influenza Type A (MARCELLO) Negative Influenza Type B (MARCELLO) Negative Influenza A & B Note See Note Assessment and Plan (1) Septic shock: Status: Acute Plan 1. Acute septic sock 2. Acute hypovolemic/distributive shock due to 3rd spacing and central depletion 3. Bibasilar pneumonia Right greater than left 4. Acute lactic and metabolic acidosis due to the above 5. Anasarca 6. Hypoalbuminemia 7. Hypervolemic hyponatremia due to 3rd spacing and liver disease likely cirrhosis 8. Normocytic anemia rule out iron deficiency, chronic disease, microscopic bleeding 9. Ascites status post paracentesis (3 L) 10. Pseudo hypocalcemia with corrected calcium of 9.0 PLAN OF CARE: The patient will be admitted to the ICU, monitor vital signs, I's and o's, I have discontinued IV fluid for the patient is already anasarca, albumin repletion, high concentration Levophed, IV Zosyn which will cover both intra-abdominal and pulmonary pathologies. ?I do not believe the patient has peritonitis, we will follow laboratories, Lasix drip, iron panel, occult blood.? When hemodynamically stable we will obtain CT of the chest, abdomen and pelvis.? Hepatitis panel.? Follow-up on peritoneal fluid results.? Sputum culture and Gram stain, urinalysis. Follow-up Sepsis exam done at 23:00 121/77, 88, 16, 96% on 2 L nasal cannula, on Levophed. General:? Alert orientedto person not to place or time. ?No acute distress. Skin:? As above no changes. Cardiac:? Clear S1-S2, no murmurs rubs or gallops.? Left IJ triple-lumen. Pulmonary:? Diminished lung sounds bilaterally fine expiratory wheezing bilaterally .? Coarseness and fine rhonchi are noted at the right base more than left.? Minimal crackles.? Abdomen: Large, distended, no bowel sounds appreciated. Soft, minimally tender to deep palpation throughout but mostly at the left lower quadrant without rebound, no guarding. Neurologic:? As above.? No focal deficits noted. Vascular:? 2+ pulses upper extremities, lower extremity pulses 1+ with Doppler and difficult to assess due to significant edema. Less than 2nd capillary refill of fingers and toes bilaterally upper and lower extremities. 2147 CT abdomen and pelvis IMPRESSION: 1. Severe enterocolitis with suspected bowel ischemia and perforation along the ascending or sigmoid colon with pneumoperitoneum as described. Surgical consult advised. 2. 3rd spacing with diffuse anasarca, mesenteric edema and small volume ascites. 3. Cirrhosis. Chest CT IMPRESSION: Dense consolidations in the posterior lower lobes, right more than left with small right and trace left bilateral effusions. Developing pneumonia or aspiration not excluded. Attention on follow-up. REVISED ASSESSMENT: 1. Severe enterocolitis with suspected bowel ischemia and perforation along the ascending or sigmoid colon with pneumoperitoneum. Continue with pressor support, stat surgical consult has been requested, fluconazole 200 mg IV x1. Type and Screen added. [address] Salazar (General Surgeon) who is aware of all the CT findings, clinical presentation and current treatment.? She will review the images and will call us back. 2340 I reached out to the above-mentioned surgeon, she is reviewing the films and we will talk to Radiology, then will advised. [address] Salazar who reviewed the images and discussed them with the radiologist, given that the patient did have a paracentesis done in the emergency room, they questioned that the free air is related to that, however the fact that he does have colitis and wall thickening raises the question of true bowel perforation. ?She kindly requested to repeat the CT abdomen and pelvis stat looking for increased free air which would point in the real direction of the actual clinical scenario.? In the meantime, she will come to see the patient. 0130 Dr. Salazar in to see the patient, she is aware the repeat CT is done and that lactic Acid not better, free air focci on the right and paracentesis was on the left. [address] Impression: 1. Moderate volume ascites and mesenteric edema in the setting of suspected cirrhosis. 2. Relatively unchanged volume and distribution of free intraperitoneal air along with moderate segmental wall thickening throughout colon and small bowel as well as foci of pneumatosis most evident within the right ascending/hepatic flexure colon. Constellation of these findings is therefore concerning for hollow viscus perforation until proven otherwise. In the setting of provided history of recent paracentesis, possibility of the iatrogenic pneumoperitoneum could also be considered. 3. Segmental bowel wall thickening may reflect infectious/inflammatory colitis however ischemic etiology can not be entirely excluded. In the setting of cirrhosis, congestive colopathy is also on the differential. 4. Additional chronic/nonacute findings as above. 0230 Dr. Salazar has reviewed the new images and advises to continue medical treatment, no surgical intervention at this point. Suggest repeating a diagnostic paracentesis in the morning to recheck for culture, cell count and differential. 0630 the patient remains hemodynamically stable still on pressors. The patient does not appear to be in any acute distress, his abdominal exam has not changed with the exception the there is no tenderness to light or deep palpation, no rebound or guarding. His white count however has gone up to 34,000. GI PROPHYLAXIS:? IV ppi DVT PROPHYLAXIS:? Pneumatic stockings only, the patient has high risk of bleeding given history of liver disease. This patient counter and care had a high probability of a clinically significant, sudden, or life threatening deterioration of this patient's condition which required my full and direct attention, intervention and personal management. Critical care time used for critical evaluation of this patient, diagnosis, treatment and coordination of care, review her records and documentation TOTAL CRITICAL 120 CARE TIME??MIN . discussion and coordination with consultants, completely separate from any procedures performed. Patient's care was discussed in detail with Dr. Bah who is aware of all the above as well as the plan of care for this patient. Total time managing care of this patient today: 120 minutes.
[2025-03-02 21:28] LABS: MN% 68.8 %; PMN% 31.2 %; WBC Peritoneal Fluid 0.280 X10*3/uL
[2025-03-02 21:43] LABS: ~Lactic Acid-LAB USE ONLY 4.9 mmol/L (0.5-2.0)
--- NOTE | 2025-03-02 22:00 | HO.NURTONUR ---
Telephone report given to DIRECTOR OF MARKETING AND PROMOTIONS. Questions answered, awaiting transport.
[2025-03-02 22:05] LABS: Lymphocyte Peritoneal Fl 15 %; Monocytes Peritoneal Fl 6 %; Neutrophils Peritoneal Fluid 20 %
[2025-03-02 22:06] LABS: BF Shift QC OK YES; Other Peritioneal Fl 59 %
[2025-03-02 22:11] LABS: Glucose, Whole Blood 188 mg/dL (60-115)
[2025-03-02] MEDS: Norepinephrine Bitartrate/NS 32 MG/250 ML PLAST..BAG IVCONT (22:25)
--- NOTE | 2025-03-02 22:34 | PHA.MEDREC ---
Addendum entered by Areli Velasco RPh 03/03/25 07:36: Remainder of medication list obtained from [facility]. Med rec complete and provider notified. Original Note: Pharmacy Consult ? Medication Reconciliation Pharmacy has completed the medication reconciliation. [facility] only sent odd number of pages only, confirmed what I could. will have morning med rec team follow up tomorrow.
[2025-03-02] MEDS: Furosemide 40 MG/4 ML VIAL IVPUSH (23:12)
[2025-03-02] MEDS: Furosemide 200 MG in 0.9 % Sodium Chloride 80 ML IVCONT (23:15)
[2025-03-02 23:24] LABS: Reflex Lactate? 2 Y
[2025-03-02 23:30] LABS: Alanine Aminotransferase 15 U/L (0-40); Albumin Level 2.7 g/dL (3.5-5.0); Alkaline Phosphatase 83 U/L (39-117); Anion Gap 12 (12-20); Aspartate Amino Transferase 58 U/L (5-37); Blood Urea Nitrogen 15 mg/dL (9-16); Calcium 8.1 mg/dL (8.4-10.2); Carbon Dioxide 23 mmol/L (22-29); Chloride 100 mmol/L (96-108); Creatinine Clr Calc Pharmacy 100.5; Estimated Glomerular Filt Rate > 60; Potassium 4.2 mmol/L (3.3-5.1); Sodium 131 mmol/L (135-145); Total Protein 5.2 g/dL (6.5-8.0)
[2025-03-02] MEDS: metroNIDAZOLE/NS 500 MG/100 ML PIGGYBACK 100 MG IV (23:45)
[2025-03-03] VITALS (25 sets, daily range): BP systolic 92–117; BP diastolic 54–73; PULSE 59–85; RESP 12–20; TEMP -12.4–37.1; O2SAT 91–98
[2025-03-03 00:08] LABS: ~Lactic Acid-LAB USE ONLY 4.2 mmol/L (0.5-2.0)
[2025-03-03] MEDS: Albumin Human 25 % 100 ML 133.33 ML IV ×7 (00:13→12:58)
[2025-03-03 01:43] LABS: Glucose, Whole Blood 136 mg/dL (60-115)
--- NOTE | 2025-03-03 02:16 | PM.HPGS ---
History of Present Illness History of Present Illness Date of Service: 03/03/25 Chief complaint: Acute hypovolemic shock Narrative: Maxim Rice is a 69 year old male with underlying alcohol related cirrhosis, ascites, type 2 diabetes, hyperlipidemia, hypertension, anemia of chronic disease who is a resident of residential facility, was transported to the emergency room due to complaints of tremors, back pain, fever and tachycardia.? The patient said that he has been feeling sick for the last 24 hours and report from the emergency department was then when he arrived he was covered with fecal material. He said he had been having significant abdominal pain previously but by the time he was in the emergency room was feeling better. Patient was evaluated in the ER and testing carried out. His abdomen was determined to be distended with fluid wave consistent with ascites from his cirrhosis. 3 L tap was carried out. Fluid was sent off for assessment and white blood count was 280 cells /ul which is not very elevated.. He was determined to have an ammonia and was started on antibiotics. He was transferred to the emergency room where on examination he was noted to be more tender in the left lower quadrant area and CT scan of his abdomen and pelvis was carried out. The report showed some free air, pneumatosis and thickening of the colon specifically the right colon hepatic area and some in the sigmoid colon. Based on these findings concern was for ischemic colon and perforation causing the free air. However the patient did have paracentesis with 3 L of ascites fluid removed which could have introduced free air. In addition the white blood count from the ascites tap was relatively low and not necessarily with a in reflected in the perforation. In the ICU he has had continued resuscitation with IV fluids and albumin and requiring pressors but is making urine output also with the Lasix drip. [facility] Social History Social History Alcohol intake: former Smoked in Last 30 Days: No Use of substances other than those prescribed or required for medical reasons: No Advance Directives: Yes Advance Directives on File: Yes Advance Directives Date on File: 03/02/25 Do you have a plan to hurt others: No Plan Meds Allergies Allergy/AdvReac Type Severity Reaction Status Date / Time No Known Allergies Allergy Verified 03/02/25 18:37 Active Medications: Current Medications Dextrose (Dextrose 50 % 25 Gm/50 Ml Syringe) 25 gm IVPUSH Q15M PRN; Protocol PRN Reason: per Hypoglycemia Standing Ord. Glucose (Glucose Gel 15 Gm Gel..Gram.) 15 gm PO Q15M PRN; Protocol PRN Reason: per Hypoglycemia Standing Ord. Norepinephrine Bitartrate (Levophed) 32 mg in 250 mls @ 0 mls/hr IVCONT .Q0M [facility]; Protocol Last Titration: 03/02/25 22:35 Dose: 0.1 mcg/kg/min, 4.08 mls/hr Piperacillin Sod/Tazobactam (Sod 3.375 gm/ Sodium Chloride) 50 mls @ 100 mls/hr IV Q6H [facility] Last Infusion: 03/03/25 00:15 Dose: Infused Furosemide 200 mg/ Sodium (Chloride) 100 mls @ 2.5 mls/hr IVCONT .Q24H [facility] Last Admin: 03/02/25 23:15 Dose: 5 mg/hr, 2.5 mls/hr Albumin Human (Kedbumin 25 %) 100 mls @ 133.333 mls/hr IV Q1H [facility] Stop: 03/03/25 04:44 Last Admin: 03/03/25 01:38 Dose: 133.33 mls/hr Insulin Human Lispro (Insulin Lispro 100 Unit/Ml 3 Ml Vial) 0 unit SUBCUT Q6H [facility]; Protocol Sodium Chloride (0.9 % Sodium Chloride Flush 3 Ml Syringe) 3 ml IVFLUSH QSHIFT [facility] Home Medications ?Medication ?Instructions ?Recorded ?Confirmed ?Last Taken ?Type bisacodyl 10 mg rectal suppository 10 mg ME DAILY PRN Constipation 03/02/25 03/02/25 Unknown History cetylpyridinium chloride 1 cecelia mucous membrane Q3H PRN Sore 03/02/25 03/02/25 Unknown History Throat folic acid 1 mg tablet 1 mg PO DAILY 03/02/25 03/02/25 Unknown History furosemide 20 mg tablet 30 mg PO DAILY 03/02/25 03/02/25 Unknown History ibuprofen 600 mg tablet 600 mg PO BID 03/02/25 03/02/25 Unknown History lactulose 10 gram/15 mL oral 15 ml PO DAILY 03/02/25 03/02/25 Unknown History solution magnesium hydroxide 400 mg/5 mL 30 ml PO DAILY PRN Constipation 03/02/25 03/02/25 Unknown History oral suspension (Milk of Magnesia) methyl salicylate-menthol topical 1 appl topical BID PRN knee pain 03/02/25 03/02/25 Unknown History cream naltrexone 50 mg tablet 25 mg PO DAILY 03/02/25 03/02/25 Unknown History sodium phosphates 19 gram-7 118 ml ME DAILY PRN Constipation 03/02/25 03/02/25 Unknown History gram/118 mL enema (Fleet Enema) Physical Exam Vital Signs: Vital Signs: Last Vital Signs Temp 97.7 F 03/03/25 02:00 Pulse 79 03/03/25 02:00 Resp 12 03/03/25 02:00 BP 103/63 03/03/25 02:00 Pulse Ox 91 L 03/03/25 02:00 O2 Del Method Nasal Cannula 03/03/25 02:00 O2 Flow Rate 1 03/03/25 02:00 Oxygen Flow Rate 2 03/02/25 21:40 BMI result Body Mass Index 30.0 Const: General: cooperative, comfortable and no acute distress Resp: Other: Breath sounds little decrease in the bases. Effort & Inspection: normal respiratory effort Cardio: Rate: regular rate Rhythm: regular rhythm GI: Other: Abdomen is soft little distended mild tenderness to very deep palpation in the left lower quadrant mild guarding no rebound no peritoneal signs mild ascitic wave noted. Active bowel sounds. On exam no bruising noted Extrem: Other: Multiple scars on lower extremities Psych: Other: Patient is awake alert reliable following commands Results Results Labs: Short CBC 03/02/25 Range/Units 18:51 WBC 7.8 (4.8-10.8) X10*3/uL Hgb 13.2 L (14.0-18.0) g/dl Hct 39.4 L (42.0-52.0) % Plt Count 218 (160-400) X10*3/uL BMP 03/02/25 03/02/25 18:51 23:05 Sodium 133 L 131 L Potassium 4.3 4.2 Chloride 98 100 Carbon Dioxide 27 23 BUN 15 15 Creatinine 0.77 0.73 Calcium 8.8 8.1 L D Liver Function 03/02/25 03/02/25 Range/Units 18:51 23:05 Total Bilirubin 1.0 0.8 (0.0-1.0) mg/dL AST 60 H 58 H (5-37) U/L ALT 22 15 (0-40) U/L Alkaline Phosphatase 149 H 83 (39-117) U/L Albumin 2.7 L 2.7 L (3.5-5.0) g/dL Abdomen CT scan report/results: report reviewed and image reviewed CT scan - pelvis: report reviewed and image reviewed Additional studies: Acct:[id number] Age/Sex: 69 / M ADM Date: 03/02/25 Loc: HO.ICU 254-[address]: Khoa LARIOS Ordering Physician: Khoa Villar Date of Service: 03/03/25 Procedure(s): CT abdomen pelvis wo IV con Accession Number(s): [id number] cc: Abdiel Lozano MD; Khoa Villar~ Report Number: [id number]: Total DLP = 707.00 mGy-cm Reason for Exam: ? perforated bowel increased free air ADDENDUMThis document has been electronically signed by: Mamie Carrillo MD on 03/03/2025 01:55:17 ADDENDUM: This report was discussed with Xiomy Bates, Nursing Manager Copy on Mar 03, 2025 02:11:00 EDT. This document has been electronically signed by: Jaky Sharma on 03/03/2025 02:12:34 Addendum Dictated By: Mamie Carrillo MD Addendum Signed By: <Electronically signed by Mamie Carrillo MD in OV> 03/03/25212 Addendum Cosigned By: DD/ /22/154 TD/TT: 03/03/2509/23/211 CLINICAL HISTORY: ? perforated bowel increased free air CT abdomen and pelvis without contrast Comparison: CT abdomen and pelvis most recently earlier on 03/02/2025 Findings: Limited evaluation of soft tissues and solid organs in the absence of IV contrast. Small bilateral pleural effusions, greater on right. Cardiomegaly. Cirrhotic appearance of the liver. Spleen, kidneys and pancreas demonstrate normal nonenhanced appearance. Distended gallbladder. Calcified but nonaneurysmal abdominal aorta. Bladder is decompressed by Johnson catheter. Normal prostate. Nondistended stomach. No small bowel obstruction. Moderate colonic diverticulosis. Moderate volume intra-abdominal ascites and stranding throughout abdominopelvic mesentery. As before, there is segmental thickening throughout the colon most notably around the cecum and right ascending segment. As seen on preceding exam, there are foci of free intraperitoneal air relatively unchanged in overall volume and distribution when compared to prior exam. Continued evidence of pneumatosis throughout the colon most profound within the right ascending segment. No acute osseous abnormality. No lytic or sclerotic osseous lesions. No pathologically enlarged lymph nodes. Impression: 1. Moderate volume ascites and mesenteric edema in the setting of suspected cirrhosis. 2. Relatively unchanged volume and distribution of free intraperitoneal air along with moderate segmental wall thickening throughout colon and small bowel as well as foci of pneumatosis most evident within the right ascending/hepatic flexure colon. Constellation of these findings is therefore concerning for hollow viscus perforation until proven otherwise. In the setting of provided history of recent paracentesis, possibility of the iatrogenic pneumoperitoneum could also be considered. 3. Segmental bowel wall thickening may reflect infectious/inflammatory colitis however ischemic etiology can not be entirely excluded. In the setting of cirrhosis, congestive colopathy is also on the differential. 4. Additional chronic/nonacute findings as above. This document has been electronically signed by: Mamie Carrillo MD on 03/03/2025 01:55:17 Dictated By: Mamie Carrillo MD Signed By: <Electronically signed by Mamie Carrillo MD in OV> 03/03/25155 DD/ 4 TD/TT: 03/03/25154 Skull Grinder: MR#: [id number] : 1955 Acct:[id number] Age/Sex: 69 / M ADM Date: 03/02/25 Loc: HO.ICU 254-[address]: Khoa LARIOS Ordering Physician: Khoa Villar Date of Service: 03/02/25 Procedure(s): CT abdomen pelvis wo IV con Accession Number(s): [id number] cc: Abdiel Lozano MD; Khoa Villar~ Report Number: [id number]: Total DLP = 0.00 mGy-cm Reason for Exam: abd pain shock ? mass? ascites cirrhosis ADDENDUMThis document has been electronically signed by: Ida Reina on 03/02/2025 23:10:21 ADDENDUM: Images reviewed with Dr. Suggs at 11:16 p.m. on 03/02/2025. Additional history reveals the patient has elevated lactic acid levels, as well had a paracentesis in the emergency department earlier tonight. The pocket of free air identified in the anterior abdominal cavity may be related to this procedure. However, the foci of pneumatosis for example in the hepatic flexure of the colon, best seen on coronal series 12, image 42, as well possibly in the sigmoid colon series 12, image 34, raises suspicion for bowel ischemia and possible perforation. Clinical correlation advised and follow-up CT may be performed if warranted. This document has been electronically signed by: Willard Jerez MD on 03/03/2025 00:57:54 Addendum Dictated By: Willard Jerez MD Addendum Signed By: <Electronically signed by Willard Jerez MD in OV> 03/03/25 0059 Addendum Cosigned By: DD/ /23/2303 TD/TT: 03/03/2509/22/56 ADDENDUMThis document has been electronically signed by: Willard Jerez MD on 03/02/2025 23:04:28 ADDENDUM: This report was discussed with Rosmery Medina RN on Mar 02, 2025 23:09:00 EDT. This document has been electronically signed by: Ida Reina on 03/02/2025 23:10:21 Addendum Dictated By: Willard Jerez MD Addendum Signed By: <Electronically signed by Willard Jerez MD in OV> 03/02/251 Addendum Cosigned By: DD/ /23/2303 TD/TT: 03/02/2508/22/2309 CLINICAL HISTORY: abd pain shock ? mass? ascites cirrhosis CT abdomen and pelvis without contrast Comparison: None provided Findings: Please see same day CT chest report. Gynecomastia. Distended gallbladder with wall thickening, can be seen with hepatocellular disease however is nonspecific. No radiopaque gallstones. Bilateral perinephric stranding, nonspecific. No urolithiasis or hydronephrosis. Pneumoperitoneum with the pocket noted along the anterior abdominal wall as well scattered foci throughout. Diffuse small bowel mural thickening. Moderate/large colorectal stool burden. Colonic diverticulosis pronounced along the sigmoid and descending colon. Extensively diffuse colonic mural thickening more pronounced along the hepatic flexure and ascending colon, with areas of pneumatosis for example series 12, image 42, concerning for ischemia and likely perforation considering the pneumoperitoneum. Additional point of severe bowel mural thickening in the sigmoid colon with pneumatosis and irregularity, this may reflect a perforation point as well. Diffuse small bowel mural thickening. No bowel obstruction. Diffuse mesenteric edema. Fat containing inguinal hernias. Normal appendix. Small volume ascites. Bladder is contracted with mural thickening. Osteopenia with diffuse multilevel spondylosis. Extensively diffuse anasarca. Diffuse atheromatous plaque disease throughout the aorta and branch vessels, without aneurysmal dilatation. Cirrhosis. IMPRESSION: 1. Severe enterocolitis with suspected bowel ischemia and perforation along the ascending or sigmoid colon with pneumoperitoneum as described. Surgical consult advised. 2. 3rd spacing with diffuse anasarca, mesenteric edema and small volume ascites. 3. Cirrhosis. This document has been electronically signed by: Willard Jerez MD on 03/02/2025 23:04:28 Dictated By: Willard Jerez MD Signed By: <Electronically signed by Willard Jerez MD in OV> 03/02/252304 DD/ 03 TD/TT: 03/02/252303 Skull Grinder: Assessment and Plan (1) Severe sepsis: Status: Acute (2) Pneumoperitoneum: Status: Acute (3) Colitis: Status: Acute Plan 69-year-old male with multiple medical problems most consistent with alcoholic cirrhosis coming in with findings consistent with some pneumonia and abdominal exam presenting ascites fluid, thickened colon with pneumatosis in some areas right side more so than left side, and free air. Patient's abdominal exam is not very worrisome. He responds that his pain is much improved especially after having the fluid removed. He has more comfortable and there is less pain. He describes his pain now is under 5 out of 10. He has a little tender to deep palpation in the left lower quadrant but his x-ray findings are little more concerning on the right side versus the left. He does have findings consistent with colitis and did have loose stools and was apparently covered with some fecal material. Here no bloody bowel movements have been noted. We can check for guaiac in his stool. Patient is being treated for his pneumonia with antibiotics and respiratory support. In regard to his abdomen ascites tap was carried out removing 3 L of fluid and the patient was feeling better. The findings of the CT scan are concerning. There is no doubt that the patient is having some type of colitis picture as measured by the findings on the CT scans and the fact that he was brought in having loose stools and covered in fecal material. However his exam is not nearly concerning for perforated bowel ischemic bowel especially with his degree of being awake alert and reliable. In discussing with the radiologist reading his 1st CT scan the free air present could be consistent with air introduced during a paracentesis tap. It was decided to repeat the CT scan as 3 hours had passed since the 1st scan and if there was a true perforation then more air with a of accumulated. On the repeat scan the amount of free air and the distribution was relatively similar to the prior scan. There is no doubt that the patient does have some type of colitis ongoing for based on his exam the fact that his white blood count was not elevated on his ascites tap his normal white count I would hold off on any urgent surgical intervention. If the patient does require an operation most likely he will need a subtotal colectomy with end ileostomy. While this is obviously a big operation and doable the risks of surgery on him at this point is moderate and dealing with the end ileostomy with his degree of ascites would be difficult. In discussing with the ICU team my recommendation would be to continue with his resuscitation repeat his blood work in the morning which is in about 2-1/2 hours and repeat a abdominal tap with checking his white blood count. Unfortunately at this time the night we do not have anyone in-house to be able to read any fluid that we were to tap. It was agreed upon in our discussion that the patient were to change in regards to his hemodynamics or exam then the decision to carry out more urgent exploratory laparotomy we will be pursued. We will continue to follow closely Quality Stroke Does the patient have a stroke diagnosis?: No VTE Prior VTE?: No VTE Risk Level:: Medical - moderate - high VTE Device Contraindication: N/A - Device Ordered VTE Drug Contraindication: N/A - Med Ordered Procedures Date of Service Date of Service: 03/03/25
--- NOTE | 2025-03-03 03:24 | HO.SKINPHOTO ---
Location: Right Medial Occipital Scalp Location: Left Dorsal Foot Category: Intact blister
[2025-03-03 05:34] LABS: MANUAL DIFF FLAG NO
[2025-03-03 05:37] LABS: Hematocrit 26.3 % (42.0-52.0); Hemoglobin 8.8 g/dl (14.0-18.0); Imm Gran Abs Auto 0.61 X10*3/uL (0.00-0.03); Imm Gran Pct Auto 1.8 % (0.0-0.4); Lymphocytes Absolute Auto 0.4 X10*3/uL (1.2-4.9); Mean Corpuscular HGB Conc 33.5 g/dl (31.0-36.0); Mean Corpuscular Hemoglobin 32.1 pg (27.0-33.0); Mean Corpuscular Volume 96.0 fL (80.0-98.0); NRBC Abs Auto 0.000 X10*3/uL (0.0-0.012); NRBC Pct Auto 0.0 /100WBC (0.0-0.2); Platelet Count 114 X10*3/uL (160-400); Red Blood Count 2.74 X10*6/uL (4.60-5.80); SCAN SMEAR FLAG 1
[2025-03-03 05:50] LABS: White Blood Count 34.0 X10*3/uL (4.8-10.8)
[2025-03-03 06:03] LABS: Alanine Aminotransferase 13 U/L (0-40); Albumin Level 4.9 g/dL (3.5-5.0); Alkaline Phosphatase 49 U/L (39-117); Anion Gap 15 (12-20); Aspartate Amino Transferase 41 U/L (5-37); Blood Urea Nitrogen 15 mg/dL (9-16); Calcium 9.1 mg/dL (8.4-10.2); Carbon Dioxide 26 mmol/L (22-29); Chloride 98 mmol/L (96-108); Creatinine Clr Calc Pharmacy 97.8; Estimated Glomerular Filt Rate > 60; Iron 13 mcg/dL (45-160); Magnesium 1.7 mg/dL (1.6-2.6); Percent Iron Saturation 19 % (15-50); Potassium 3.7 mmol/L (3.3-5.1); Sodium 135 mmol/L (135-145); Total Iron Binding Capacity 67 mcg/dL (228-428); Total Protein 6.3 g/dL (6.5-8.0); Unsaturated Iron Binding 54 ug/dL
[2025-03-03 06:15] LABS: HBS Num1 0.39 mIU/mL (0-7.99); HBc Num1 0.35 S/CO (0.00-0.79); HBsAGNum1 0.44 S/CO (0.00-0.99); Hepatitis B Surface Antigen Negative (Negative); ~HepC Num1 0.13 S/CO (0.00-0.79); ~Hepatitis B Surface Antibody NONREACTIVE (Nonreactive); ~Hepatitis C Antibody Nonreactive (Nonreactive)
--- NOTE | 2025-03-03 07:43 | PC.ADMIT ---
Patient admitted to ICU from ED at approximately?2200. On initial assessment- patient A&Ox1/2. States he knows he's in the hospital but thought he was at [facility]. Able to state current year but unable to state current month or day. Easily redirectable. Able to follow simple commands. KURTZ.?4x concentration Levophed infusion started and titrated to maintain MAP >70 per provider. NSR on tele, HR 70-90s, frequent ectopy. +4 BLE edema. Albumin IV, Lasix IVP and Lasix infusion started per JUL, diuresing well. Indwelling catheter placed per order. Multiple abx IV administered per JUL. Abd large, round, soft but tender, L>R. Patient complaining of mild abdominal pain, states it's significantly improved from before he came to the ED. Critical abd CT scan results- see report, RIC Villar aware- surgery consulted and repeat abd CT obtained, PA aware of results. Surgeon to bedside?to assess pt at approx 0130. PA aware of all critical labs. Abrasion to the right medial occipital scalp- xeroform and foam applied. Intact blister to left dorsal foot- FRANCOIS. Suture x1 to left abd?intact- SPEECH SCIENTIST. Pictures uploaded to chart and Wound Care Consult placed. Repositioned Q2H with pillows. See EMR/ Flowsheet for further details. Bed locked and in the lowest position,?alarm on, call cameron within reach. See EMR/flowsheet?for further details.? Report given to oncoming RN at 0700.?
[2025-03-03 08:32] LABS: INTERNATIONAL NORM RATIO 2.0 (0.9-1.1); Prothrombin Time 23.5 SEC (10.9-12.4)
[2025-03-03] MEDS: 0.9 % Sodium Chloride Flush 3 ML SYRINGE IVFLUSH ×2 (08:33→17:20)
--- NOTE | 2025-03-03 11:38 | W.PM.CCHP ---
Procedures Date of Service Date of Service: 03/03/25 Paracentesis Consent for Procedure: Elective - informed consent obtained Time out performed: Yes Indication: Ascites Procedure: therapeutic paracentesis Location: RLQ Local anesthetic used: lidocaine 1% Amount of anesthesia used (ml): 10 Bedside ultrasound used: yes, real-time guidance Preparation: sterile prep and drape Amount of fluid obtained (ml): 3,500 Fluid: cloudy Post procedure exam: awake, alert, normal BP and normal HR Patient tolerated procedure: well and no complications
--- NOTE | 2025-03-03 11:40 | P.PNCC_ITS ---
Subjective Subjective Date of Service: 03/03/25 Interval History: States his pain is significantly better this morning On Levophed 0.08 micrograms/minute Breathing stable Critical Care Time (minutes): 35 Physical Exam 2 Vital Signs: Vital Signs: Last Vital Signs Temp 97.7 F 03/03/25 11:00 Pulse 71 03/03/25 11:16 Resp 14 03/03/25 11:00 BP 99/56 L 03/03/25 11:16 Pulse Ox 97 03/03/25 11:00 O2 Del Method Nasal Cannula 03/03/25 11:00 O2 Flow Rate 2 03/03/25 11:00 Oxygen Flow Rate 2 03/02/25 21:40 BMI result Body Mass Index 30.0 General: Patient in somewhat very much acute distress, fun loving personality, cracks some jokes Nutritional Appearance: well nourished and overweight Eyes: appearance normal, both eyes and all related structures; Alignment and Position: alignment normal and position normal Neck: No lymphadenopathy, no thyromegaly Resp: bilateral air entry equal, occasional added sounds present Cardio: Regular rate, regular rhythm; Heart sounds: S1 normal heart sound present and S2 normal heart sound present GI: soft, distended, nontender, no guarding, no rigidity : bladder normal to inspection, bladder normal to palpation, no renal angle tenderness Skin: no rashes or lesions noted and elasticity normal Neuro: oriented to person, oriented to place, oriented to time and moves all extremities Objective Data Labs 03/03/25 04:57 03/03/25 04:56 Labs: Laboratory Results - last 24 hr 03/02/25 03/02/25 03/02/25 18:51 19:11 19:12 WBC 7.8 RBC 4.14 L Hgb 13.2 L Hct 39.4 L MCV 95.2 MCH 31.9 MCHC 33.5 RDW 13.8 Plt Count 218 MPV 9.2 L Immature Gran % (Auto) 0.4 Neut % (Auto) 95.6 H Lymph % (Auto) 3.2 L [place] % (Auto) 0.4 L Eos % (Auto) 0.1 Baso % (Auto) 0.3 Lymph # (Auto) 0.3 L [place] # (Auto) 0.0 L Eos # (Auto) 0.0 Baso # (Auto) 0.0 Abs Immat Gran (auto) 0.03 Absolute Neuts (auto) 7.4 Absolute Nucleated RBC 0.000 Nucleated RBC % (auto) 0.0 Smear Tech's Comments VERIFIED PT 13.5 H INR 1.2 H APTT 27.0 Sodium 133 L Potassium 4.3 Chloride 98 Carbon Dioxide 27 Anion Gap 12 BUN 15 Creatinine 0.77 Estim Creat Clear Calc 95.3 Estimated GFR > 60 POC Glucose Random Glucose 100 Lactic Acid 4.3 H* Lactic Acid F/U @ 2Hr Lactic Acid F/U @ 4Hr Calcium 8.8 Phosphorus Magnesium Iron TIBC % Saturation Unsat Iron Binding Total Bilirubin 1.0 AST 60 H ALT 22 Alkaline Phosphatase 149 H Ammonia 50 Troponin I High Sens 12.5 NT-Pro-B Natriuret Pep 1503.9 H Total Protein 6.1 L Albumin 2.7 L Lipase 16 Peritoneal WBC Peritoneal RBC Periton Neutrophils Periton Lymphocytes Peritoneal Monocytes Peritoneal Other Cells COVID-19 (RALPH) COVID-19 Clin Com Hep Bs Antigen Hep Bs Antibody Hep B Core Total Ab Hepatitis C Ab (EIA) Influenza Type A (MARCELLO) Influenza Type B (MARCELLO) Influenza A & B Note Blood Type Antibody Screen 03/02/25 03/02/25 03/02/25 19:40 20:38 21:19 WBC RBC Hgb Hct MCV MCH MCHC RDW Plt Count MPV Immature Gran % (Auto) Neut % (Auto) Lymph % (Auto) [place] % (Auto) Eos % (Auto) Baso % (Auto) Lymph # (Auto) [place] # (Auto) Eos # (Auto) Baso # (Auto) Abs Immat Gran (auto) Absolute Neuts (auto) Absolute Nucleated RBC Nucleated RBC % (auto) Smear Tech's Comments PT INR APTT Sodium Potassium Chloride Carbon Dioxide Anion Gap BUN Creatinine Estim Creat Clear Calc Estimated GFR POC Glucose Random Glucose Lactic Acid Lactic Acid F/U @ 2Hr 4.9 H* Lactic Acid F/U @ 4Hr Calcium Phosphorus Magnesium Iron TIBC % Saturation Unsat Iron Binding Total Bilirubin AST ALT Alkaline Phosphatase Ammonia Troponin I High Sens NT-Pro-B Natriuret Pep Total Protein Albumin Lipase Peritoneal WBC 0.280 Peritoneal RBC < 0.002 Periton Neutrophils 20 Periton Lymphocytes 15 Peritoneal Monocytes 6 Peritoneal Other Cells 59 COVID-19 (RALPH) Negative COVID-19 Clin Com See Note Hep Bs Antigen Hep Bs Antibody Hep B Core Total Ab Hepatitis C Ab (EIA) Influenza Type A (MARCELLO) Negative Influenza Type B (MARCELLO) Negative Influenza A & B Note See Note Blood Type Antibody Screen 03/02/25 03/02/25 03/02/25 21:42 22:07 23:05 WBC RBC Hgb Hct MCV MCH MCHC RDW Plt Count MPV Immature Gran % (Auto) Neut % (Auto) Lymph % (Auto) [place] % (Auto) Eos % (Auto) Baso % (Auto) Lymph # (Auto) [place] # (Auto) Eos # (Auto) Baso # (Auto) Abs Immat Gran (auto) Absolute Neuts (auto) Absolute Nucleated RBC Nucleated RBC % (auto) Smear Tech's Comments PT INR APTT Sodium 131 L Potassium 4.2 Chloride 100 Carbon Dioxide 23 Anion Gap 12 BUN 15 Creatinine 0.73 Estim Creat Clear Calc 100.5 Estimated GFR > 60 POC Glucose 188 H Random Glucose 156 H Lactic Acid Cancelled Lactic Acid F/U @ 2Hr Lactic Acid F/U @ 4Hr Calcium 8.1 L D Phosphorus Magnesium Iron TIBC % Saturation Unsat Iron Binding Total Bilirubin 0.8 AST 58 H ALT 15 Alkaline Phosphatase 83 Ammonia Troponin I High Sens NT-Pro-B Natriuret Pep Total Protein 5.2 L Albumin 2.7 L Lipase Peritoneal WBC Peritoneal RBC Periton Neutrophils Periton Lymphocytes Peritoneal Monocytes Peritoneal Other Cells COVID-19 (RALPH) COVID-19 Clin Com Hep Bs Antigen Hep Bs Antibody Hep B Core Total Ab Hepatitis C Ab (EIA) Influenza Type A (MARCELLO) Influenza Type B (MARCELLO) Influenza A & B Note Blood Type Antibody Screen 03/02/25 03/02/25 03/03/25 23:44 23:45 01:38 WBC RBC Hgb Hct MCV MCH MCHC RDW Plt Count MPV Immature Gran % (Auto) Neut % (Auto) Lymph % (Auto) [place] % (Auto) Eos % (Auto) Baso % (Auto) Lymph # (Auto) [place] # (Auto) Eos # (Auto) Baso # (Auto) Abs Immat Gran (auto) Absolute Neuts (auto) Absolute Nucleated RBC Nucleated RBC % (auto) Smear Tech's Comments PT INR APTT Sodium Potassium Chloride Carbon Dioxide Anion Gap BUN Creatinine Estim Creat Clear Calc Estimated GFR POC Glucose 136 H Random Glucose Lactic Acid Lactic Acid F/U @ 2Hr Lactic Acid F/U @ 4Hr 4.2 H* Calcium Phosphorus Magnesium Iron TIBC % Saturation Unsat Iron Binding Total Bilirubin AST ALT Alkaline Phosphatase Ammonia Troponin I High Sens NT-Pro-B Natriuret Pep Total Protein Albumin Lipase Peritoneal WBC Peritoneal RBC Periton Neutrophils Periton Lymphocytes Peritoneal Monocytes Peritoneal Other Cells COVID-19 (RALPH) COVID-19 Clin Com Hep Bs Antigen Hep Bs Antibody Hep B Core Total Ab Hepatitis C Ab (EIA) Influenza Type A (MARCELLO) Influenza Type B (MARCELLO) Influenza A & B Note Blood Type O Positive Antibody Screen NEGATIVE 03/03/25 03/03/25 03/03/25 04:56 04:57 08:03 WBC 34.0 H* RBC 2.74 L D Hgb 8.8 L D Hct 26.3 L D MCV 96.0 MCH 32.1 MCHC 33.5 RDW 13.9 Plt Count 114 L D MPV 9.7 Immature Gran % (Auto) 1.8 H Neut % (Auto) 93.3 H Lymph % (Auto) 1.1 L [place] % (Auto) 3.2 Eos % (Auto) 0.3 Baso % (Auto) 0.3 Lymph # (Auto) 0.4 L [place] # (Auto) 1.1 Eos # (Auto) 0.1 Baso # (Auto) 0.1 Abs Immat Gran (auto) 0.61 H Absolute Neuts (auto) 31.7 H Absolute Nucleated RBC 0.000 Nucleated RBC % (auto) 0.0 Smear Tech's Comments PT 23.5 H D INR 2.0 H APTT Sodium 135 Potassium 3.7 Chloride 98 Carbon Dioxide 26 Anion Gap 15 BUN 15 Creatinine 0.75 Estim Creat Clear Calc 97.8 Estimated GFR > 60 POC Glucose Random Glucose 127 H Lactic Acid Lactic Acid F/U @ 2Hr Lactic Acid F/U @ 4Hr Calcium 9.1 D Phosphorus 3.5 Magnesium 1.7 Iron 13 L TIBC 67 L % Saturation 19 Unsat Iron Binding 54 Total Bilirubin 1.2 H AST 41 H ALT 13 Alkaline Phosphatase 49 Ammonia Troponin I High Sens NT-Pro-B Natriuret Pep Total Protein 6.3 L Albumin 4.9 Lipase Peritoneal WBC Peritoneal RBC Periton Neutrophils Periton Lymphocytes Peritoneal Monocytes Peritoneal Other Cells COVID-19 (RALPH) COVID-19 Clin Com Hep Bs Antigen Negative Hep Bs Antibody NONREACTIVE Hep B Core Total Ab Nonreactive Hepatitis C Ab (EIA) Nonreactive Influenza Type A (MARCELLO) Influenza Type B (MARCELLO) Influenza A & B Note Blood Type Antibody Screen Microbiology Microbiology Results: Microbiology 03/02/25 20:38 Abdominal Fluid Gram Stain - Final 03/02/25 20:38 Abdominal Fluid Routine Culture - Preliminary No growth to date. 03/02/25 20:38 Abdominal Fluid Anaerobic Culture - Preliminary No growth to date. Progress Note: A&P Assessment and plan (1) Septic shock: Status: Acute (2) Colitis: Status: Acute (3) Severe sepsis: Status: Acute Plan Septic Shock: Possibly secondary to colitis and SBP On Levophed support 0.08, titrate Levophed to keep map above 65 mm Hg GI: Decompensated alcohol-related liver cirrhosis: Has ascites and SBP, diagnostic paracentesis showing 280 WBCs. Repeated at therapeutic paracentesis with 3.5 L ascitic fluid drained, repeat WBC count has been sent stat. If the counts are high might consider that he might have a perforation which is unlikely given his soft abdomen, stable vitals without much increase in the vasopressor requirement, other organs normal. General surgery is involved in the case, appreciate recommendations. CT abdomen showing colitis, some air in the abdomen and early pneumatocele formation around the colon; patient has a history of paracentesis prior to CT. We will closely monitor his clinical status, if any changes possibly might need a laparotomy to look for perforation Renal: Renal function stable, will switch lasix drip to IV push BID We will closely monitor I's and O's Avoid nephrotoxic medications Heme: Chronic anemia, closely monitor H&H, transfuse for hemoglobin less than 7 grams/deciliter Endocrine: Diabetes mellitus: Blood sugars under control Sliding scale insulin as needed Infectious disease: Pending pancultures On empiric Zosyn for SBP and bowel infection Received 1 dose of fluconazole last night, if his clinical status deteriorates we will continue fluconazole Musculoskeletal: Decubitus ulcer prevention protocol Lines: Peripheral Prophylaxis: SCD, pantoprazole Quality Stroke Does the patient have a stroke diagnosis?: No VTE Prior VTE?: No VTE Risk Level:: Medical - moderate - high VTE Device Contraindication: N/A - Device Ordered VTE Drug Contraindication: N/A - Med Ordered
[2025-03-03 12:19] LABS: MN% 38.9 %; PMN% 61.1 %; WBC Peritoneal Fluid 0.535 X10*3/uL
--- NOTE | 2025-03-03 12:23 | PM.PNGS ---
Subjective Subjective Date of Service: 03/03/25 Interval history: pt feels well no reported abdominal pain, no nausea, talking and feeling well no nausea wbc increased to 34 from 7 yesterday Physical Exam Vital Signs: Vital Signs: Last Vital Signs Temp 97.7 F 03/03/25 11:00 Pulse 71 03/03/25 11:16 Resp 14 03/03/25 11:00 BP 99/56 L 03/03/25 11:16 Pulse Ox 97 03/03/25 11:00 O2 Del Method Nasal Cannula 03/03/25 11:00 O2 Flow Rate 2 03/03/25 11:00 Oxygen Flow Rate 2 03/02/25 21:40 BMI result Body Mass Index 30.0 Const: General: cooperative, healthy appearing, comfortable and no acute distress GI: Other: abdomen - less distended, soft nontender to deep palpation with maybe some slight tenderness on left lower quadrant no guarding no rebound no peritoneal signs. Objective Data Active Medications Dextrose (Dextrose 50 % 25 Gm/50 Ml Syringe) 25 gm IVPUSH Q15M PRN; Protocol PRN Reason: per Hypoglycemia Standing Ord. Glucose (Glucose Gel 15 Gm Gel..Gram.) 15 gm PO Q15M PRN; Protocol PRN Reason: per Hypoglycemia Standing Ord. Norepinephrine Bitartrate (Levophed) 32 mg in 250 mls @ 0 mls/hr IVCONT .Q0M BLAYNE; Protocol Last Titration: 03/03/25 11:16 Dose: 0.1 mcg/kg/min, 4.08 mls/hr Documented By: BULMARO Piperacillin Sod/Tazobactam (Sod 3.375 gm/ Sodium Chloride) 50 mls @ 100 mls/hr IV Q6H [facility] Last Infusion: 03/03/25 12:15 Dose: Infused Documented By: BULMARO Albumin Human (Kedbumin 25 %) 100 mls @ 133.333 mls/hr IV Q1H [facility] Stop: 03/03/25 13:29 Last Admin: 03/03/25 12:12 Dose: 133.33 mls/hr Documented By: BULMARO Insulin Human Lispro (Insulin Lispro 100 Unit/Ml 3 Ml Vial) 0 unit SUBCUT Q6H [facility]; Protocol Last Admin: 03/03/25 06:16 Dose: Not Given Documented By: HO.NAUMOC Non-Admin Reason: No Insulin Coverage Sodium Chloride (0.9 % Sodium Chloride Flush 3 Ml Syringe) 3 ml IVFLUSH QSHIFT [facility] Last Admin: 03/03/25 08:33 Dose: 3 ml Documented By: BULMARO Labs 03/03/25 13:58 03/03/25 04:56 Labs: Laboratory Results - last 24 hr 03/02/25 03/02/25 03/02/25 18:51 19:11 19:12 MCV 95.2 MCH 31.9 MCHC 33.5 RDW 13.8 Plt Count 218 MPV 9.2 L Immature Gran % (Auto) 0.4 Neut % (Auto) 95.6 H Lymph % (Auto) 3.2 L [place] % (Auto) 0.4 L Eos % (Auto) 0.1 Baso % (Auto) 0.3 Lymph # (Auto) 0.3 L [place] # (Auto) 0.0 L Eos # (Auto) 0.0 Baso # (Auto) 0.0 Abs Immat Gran (auto) 0.03 Absolute Neuts (auto) 7.4 Absolute Nucleated RBC 0.000 Nucleated RBC % (auto) 0.0 Smear Tech's Comments VERIFIED PT 13.5 H INR 1.2 H APTT 27.0 Anion Gap 12 Estim Creat Clear Calc 95.3 Estimated GFR > 60 POC Glucose Random Glucose 100 Lactic Acid 4.3 H* Lactic Acid F/U @ 2Hr Lactic Acid F/U @ 4Hr Calcium 8.8 Phosphorus Magnesium Iron TIBC % Saturation Unsat Iron Binding Total Bilirubin 1.0 AST 60 H ALT 22 Alkaline Phosphatase 149 H Ammonia 50 Troponin I High Sens 12.5 NT-Pro-B Natriuret Pep 1503.9 H Total Protein 6.1 L Albumin 2.7 L Lipase 16 Peritoneal WBC Peritoneal RBC Periton Neutrophils Periton Lymphocytes Peritoneal Monocytes Peritoneal Other Cells COVID-19 (RALPH) COVID-19 Clin Com Hep Bs Antigen Hep Bs Antibody Hep B Core Total Ab Hepatitis C Ab (EIA) Influenza Type A (MARCELLO) Influenza Type B (MARCELLO) Influenza A & B Note Blood Type Antibody Screen 03/02/25 03/02/25 03/02/25 19:40 20:38 21:19 MCV MCH MCHC RDW Plt Count MPV Immature Gran % (Auto) Neut % (Auto) Lymph % (Auto) [place] % (Auto) Eos % (Auto) Baso % (Auto) Lymph # (Auto) [place] # (Auto) Eos # (Auto) Baso # (Auto) Abs Immat Gran (auto) Absolute Neuts (auto) Absolute Nucleated RBC Nucleated RBC % (auto) Smear Tech's Comments PT INR APTT Anion Gap Estim Creat Clear Calc Estimated GFR POC Glucose Random Glucose Lactic Acid Lactic Acid F/U @ 2Hr 4.9 H* Lactic Acid F/U @ 4Hr Calcium Phosphorus Magnesium Iron TIBC % Saturation Unsat Iron Binding Total Bilirubin AST ALT Alkaline Phosphatase Ammonia Troponin I High Sens NT-Pro-B Natriuret Pep Total Protein Albumin Lipase Peritoneal WBC 0.280 Peritoneal RBC < 0.002 Periton Neutrophils 20 Periton Lymphocytes 15 Peritoneal Monocytes 6 Peritoneal Other Cells 59 COVID-19 (RALPH) Negative COVID-19 Clin Com See Note Hep Bs Antigen Hep Bs Antibody Hep B Core Total Ab Hepatitis C Ab (EIA) Influenza Type A (MARCELLO) Negative Influenza Type B (MARCELLO) Negative Influenza A & B Note See Note Blood Type Antibody Screen 03/02/25 03/02/25 03/02/25 21:42 22:07 23:05 MCV MCH MCHC RDW Plt Count MPV Immature Gran % (Auto) Neut % (Auto) Lymph % (Auto) [place] % (Auto) Eos % (Auto) Baso % (Auto) Lymph # (Auto) [place] # (Auto) Eos # (Auto) Baso # (Auto) Abs Immat Gran (auto) Absolute Neuts (auto) Absolute Nucleated RBC Nucleated RBC % (auto) Smear Tech's Comments PT INR APTT Anion Gap 12 Estim Creat Clear Calc 100.5 Estimated GFR > 60 POC Glucose 188 H Random Glucose 156 H Lactic Acid Cancelled Lactic Acid F/U @ 2Hr Lactic Acid F/U @ 4Hr Calcium 8.1 L D Phosphorus Magnesium Iron TIBC % Saturation Unsat Iron Binding Total Bilirubin 0.8 AST 58 H ALT 15 Alkaline Phosphatase 83 Ammonia Troponin I High Sens NT-Pro-B Natriuret Pep Total Protein 5.2 L Albumin 2.7 L Lipase Peritoneal WBC Peritoneal RBC Periton Neutrophils Periton Lymphocytes Peritoneal Monocytes Peritoneal Other Cells COVID-19 (RALPH) COVID-19 Clin Com Hep Bs Antigen Hep Bs Antibody Hep B Core Total Ab Hepatitis C Ab (EIA) Influenza Type A (MARCELLO) Influenza Type B (MARCELLO) Influenza A & B Note Blood Type Antibody Screen 03/02/25 03/02/25 03/03/25 23:44 23:45 01:38 MCV MCH MCHC RDW Plt Count MPV Immature Gran % (Auto) Neut % (Auto) Lymph % (Auto) [place] % (Auto) Eos % (Auto) Baso % (Auto) Lymph # (Auto) [place] # (Auto) Eos # (Auto) Baso # (Auto) Abs Immat Gran (auto) Absolute Neuts (auto) Absolute Nucleated RBC Nucleated RBC % (auto) Smear Tech's Comments PT INR APTT Anion Gap Estim Creat Clear Calc Estimated GFR POC Glucose 136 H Random Glucose Lactic Acid Lactic Acid F/U @ 2Hr Lactic Acid F/U @ 4Hr 4.2 H* Calcium Phosphorus Magnesium Iron TIBC % Saturation Unsat Iron Binding Total Bilirubin AST ALT Alkaline Phosphatase Ammonia Troponin I High Sens NT-Pro-B Natriuret Pep Total Protein Albumin Lipase Peritoneal WBC Peritoneal RBC Periton Neutrophils Periton Lymphocytes Peritoneal Monocytes Peritoneal Other Cells COVID-19 (RALPH) COVID-19 Clin Com Hep Bs Antigen Hep Bs Antibody Hep B Core Total Ab Hepatitis C Ab (EIA) Influenza Type A (MARCELLO) Influenza Type B (MARCELLO) Influenza A & B Note Blood Type O Positive Antibody Screen NEGATIVE 03/03/25 03/03/25 03/03/25 04:56 04:57 08:03 MCV 96.0 MCH 32.1 MCHC 33.5 RDW 13.9 Plt Count 114 L D MPV 9.7 Immature Gran % (Auto) 1.8 H Neut % (Auto) 93.3 H Lymph % (Auto) 1.1 L [place] % (Auto) 3.2 Eos % (Auto) 0.3 Baso % (Auto) 0.3 Lymph # (Auto) 0.4 L [place] # (Auto) 1.1 Eos # (Auto) 0.1 Baso # (Auto) 0.1 Abs Immat Gran (auto) 0.61 H Absolute Neuts (auto) 31.7 H Absolute Nucleated RBC 0.000 Nucleated RBC % (auto) 0.0 Smear Tech's Comments PT 23.5 H D INR 2.0 H APTT Anion Gap 15 Estim Creat Clear Calc 97.8 Estimated GFR > 60 POC Glucose Random Glucose 127 H Lactic Acid Lactic Acid F/U @ 2Hr Lactic Acid F/U @ 4Hr Calcium 9.1 D Phosphorus 3.5 Magnesium 1.7 Iron 13 L TIBC 67 L % Saturation 19 Unsat Iron Binding 54 Total Bilirubin 1.2 H AST 41 H ALT 13 Alkaline Phosphatase 49 Ammonia Troponin I High Sens NT-Pro-B Natriuret Pep Total Protein 6.3 L Albumin 4.9 Lipase Peritoneal WBC Peritoneal RBC Periton Neutrophils Periton Lymphocytes Peritoneal Monocytes Peritoneal Other Cells COVID-19 (RALPH) COVID-19 Clin Com Hep Bs Antigen Negative Hep Bs Antibody NONREACTIVE Hep B Core Total Ab Nonreactive Hepatitis C Ab (EIA) Nonreactive Influenza Type A (MARCELLO) Influenza Type B (MARCELLO) Influenza A & B Note Blood Type Antibody Screen 03/03/25 11:20 MCV MCH MCHC RDW Plt Count MPV Immature Gran % (Auto) Neut % (Auto) Lymph % (Auto) [place] % (Auto) Eos % (Auto) Baso % (Auto) Lymph # (Auto) [place] # (Auto) Eos # (Auto) Baso # (Auto) Abs Immat Gran (auto) Absolute Neuts (auto) Absolute Nucleated RBC Nucleated RBC % (auto) Smear Tech's Comments PT INR APTT Anion Gap Estim Creat Clear Calc Estimated GFR POC Glucose Random Glucose Lactic Acid Lactic Acid F/U @ 2Hr Lactic Acid F/U @ 4Hr Calcium Phosphorus Magnesium Iron TIBC % Saturation Unsat Iron Binding Total Bilirubin AST ALT Alkaline Phosphatase Ammonia Troponin I High Sens NT-Pro-B Natriuret Pep Total Protein Albumin Lipase Peritoneal WBC 0.535 Peritoneal RBC < 0.002 Periton Neutrophils Periton Lymphocytes Peritoneal Monocytes Peritoneal Other Cells COVID-19 (RALPH) COVID-19 Clin Com Hep Bs Antigen Hep Bs Antibody Hep B Core Total Ab Hepatitis C Ab (EIA) Influenza Type A (MARCELLO) Influenza Type B (MARCELLO) Influenza A & B Note Blood Type Antibody Screen Microbiology Microbiology Results: Microbiology 03/02/25 20:38 Gram Stain - Final Abdominal Fluid Routine Culture - Preliminary No growth to date. Anaerobic Culture - Preliminary No growth to date. Procedures Date of Service Date of Service: 03/03/25 Progress Note: A&P Assessment and plan (1) Colitis: Status: Acute Assessment and Plan: Pt is 69 year old male with sepsis -? etiology - he has some type of colitis picture - had been having lots of diarhea, abdomen distended - but ?ischemic/infectious- doing better as nontender less distension. He had 2 peritoneal taps of about 3 L each - yest wbc was 285 todady 585. It has increased but still relatively low if he had a perforation with possible fecal peritonitis and free air- fluid also looked clean and clear. Pt had free air =yesterday prob due to tap vs perforation. His clinical exam cont to improve - Plan to neep with maybe some sips of clears later and npo after midnight and review - will follow up on cultures of peritoneal tap. If pt gets clinically owrse will consider surgical exploration with most likely subtotal colectomy and end ileostomy - pt would rather not have any surgery. extensive discussion and collaboration had with ICU team. Time Spent With Patient Time: Total time managing care of this patient today ____ minutes. Quality Stroke Does the patient have a stroke diagnosis?: No VTE Prior VTE?: No VTE Risk Level:: Medical - moderate - high VTE Device Contraindication: N/A - Device Ordered VTE Drug Contraindication: N/A - Med Ordered
[2025-03-03 12:30] LABS: Glucose, Whole Blood 102 mg/dL (60-115)
[2025-03-03 13:09] LABS: BF Shift QC OK YES; Monocytes Peritoneal Fl 3 %
[2025-03-03 13:16] LABS: Lymphocyte Peritoneal Fl 5 %; Neutrophils Peritoneal Fluid 45 %; Other Peritioneal Fl 47 %
[2025-03-03 14:12] LABS: Hematocrit 26.3 % (42.0-52.0); Hemoglobin 9.3 g/dl (14.0-18.0); Imm Gran Abs Auto 0.34 X10*3/uL (0.00-0.03); Imm Gran Pct Auto 1.0 % (0.0-0.4); Lymphocytes Absolute Auto 0.8 X10*3/uL (1.2-4.9); MANUAL DIFF FLAG SCAN; Mean Corpuscular HGB Conc 35.4 g/dl (31.0-36.0); Mean Corpuscular Hemoglobin 33.2 pg (27.0-33.0); Mean Corpuscular Volume 93.9 fL (80.0-98.0); NRBC Abs Auto 0.000 X10*3/uL (0.0-0.012); NRBC Pct Auto 0.0 /100WBC (0.0-0.2); Platelet Count 133 X10*3/uL (160-400); Red Blood Count 2.80 X10*6/uL (4.60-5.80); SCAN SMEAR FLAG 1
[2025-03-03 14:26] LABS: White Blood Count 33.2 X10*3/uL (4.8-10.8)
--- NOTE | 2025-03-03 15:46 | HO.SKINPHOTO ---
Location: Left elbow
--- NOTE | 2025-03-03 17:57 | PC.NURSE ---
Assumed care at 0700 Neuro: Alert & oriented, Vague? Respiratory: On RA, Dim lung sounds? Cardiac: Sinus Rhythm on tele, Levophed x4 gtt, Map goal >65. Lasix gtt dc per MAR GI/: LBM 10/4 , +bowel sounds, NPO, Paracentesis done by Dr. Bah at bedside. 3.4L removed. Johnson in place, Patent/draining. Skin: Impaired skin integrity, see skin assessment. (foam DGS applied, reposition maintained) Infectious: IV abx Temp: Afebrile?? Lines: TLC L. IJ, peripheral IV x1.
[2025-03-03 18:28] LABS: Glucose, Whole Blood 97 mg/dL (60-115)
[2025-03-03] MEDS: Norepinephrine Bitartrate/NS 32 MG/250 ML PLAST..BAG 3.26 MG IVCONT (22:48)
[2025-03-03 23:49] LABS: Glucose, Whole Blood 115 mg/dL (60-115)
[2025-03-04] VITALS (32 sets, daily range): BP systolic 98–133; BP diastolic 55–90; PULSE 16–99; RESP 13–21; TEMP 36–37.1; O2SAT 91–99; BMI 29.0
[2025-03-04] MEDS: 0.9 % Sodium Chloride Flush 3 ML SYRINGE IVFLUSH ×3 (00:33→15:24)
[2025-03-04 05:22] LABS: Hematocrit 29.6 % (42.0-52.0); Hemoglobin 9.8 g/dl (14.0-18.0); Imm Gran Abs Auto 0.26 X10*3/uL (0.00-0.03); Imm Gran Pct Auto 1.0 % (0.0-0.4); Lymphocytes Absolute Auto 1.1 X10*3/uL (1.2-4.9); MANUAL DIFF FLAG SCAN; Mean Corpuscular HGB Conc 33.1 g/dl (31.0-36.0); Mean Corpuscular Hemoglobin 31.9 pg (27.0-33.0); Mean Corpuscular Volume 96.4 fL (80.0-98.0); NRBC Abs Auto 0.000 X10*3/uL (0.0-0.012); NRBC Pct Auto 0.0 /100WBC (0.0-0.2); Platelet Count 121 X10*3/uL (160-400); Red Blood Count 3.07 X10*6/uL (4.60-5.80); SCAN SMEAR FLAG 1; White Blood Count 25.3 X10*3/uL (4.8-10.8)
[2025-03-04 05:38] LABS: Alanine Aminotransferase 6 U/L (0-40); Albumin Level 3.3 g/dL (3.5-5.0); Alkaline Phosphatase 43 U/L (39-117); Anion Gap 12 (12-20); Aspartate Amino Transferase 40 U/L (5-37); Blood Urea Nitrogen 15 mg/dL (9-16); Calcium 8.3 mg/dL (8.4-10.2); Carbon Dioxide 27 mmol/L (22-29); Chloride 101 mmol/L (96-108); Creatinine Clr Calc Pharmacy 97.8; Estimated Glomerular Filt Rate > 60; Magnesium 1.6 mg/dL (1.6-2.6); Potassium 3.5 mmol/L (3.3-5.1); Sodium 136 mmol/L (135-145); Total Protein 4.7 g/dL (6.5-8.0)
--- NOTE | 2025-03-04 07:08 | PHA.PROG ---
Admission Date/Time: March 02, 2025 20:58 Indication: Bacteremia Weight in k.1 kg Adjusted body weight in Kg: [place] body weight in Kg: Obesity Dosing Indication % IBW: BMI 29.0 Serum Creatinine - Last 168 Hours 03/02/25 03/02/25 03/03/25 18:51 23:05 04:56 Creatinine 0.77 0.73 0.75 03/04/25 05:02 Creatinine 0.75 Estimated CrCl and GFR - Last 168 Hours 03/02/25 03/02/25 03/03/25 18:51 23:05 04:56 Estim Creat Clear Calc 95.3 100.5 97.8 Estimated GFR > 60 > 60 > 60 03/04/25 05:02 Estim Creat Clear Calc 97.8 Estimated GFR > 60 Vancomycin Loading Dose: 1500mg X1 Current Vancomycin Dosing Regimen: 750mg Q8H Vancomycin Monitoring using AUC goal of 400 - 600 range with trough as surrogate marker: 535 Date and Time for next Vancomycin Level to be drawn: 03/04 @1600 Pharmacist Comments on Vancomycin Plan: Pt's BMI elevated but renal function is good. Pt got loaded with 2gms on 03/02 , then recieved 1500mg early this morning, dosing at 750 Q8h to be aggressive per indication and getting trough today to see where pt is at and to adjusted as necessary. Vancomycin dosing will take advantage of [employer] as a clinical decision support tool that uses Bayesian modeling to calculate individual patient's pharmacokinetic parameters and forecast the patient's drug concentration time course with the target goal AUC 24 range of 400 - 600 mg/L/hr.
[2025-03-04] MEDS: Furosemide 40 MG/4 ML VIAL IVPUSH (08:24)
--- NOTE | 2025-03-04 10:38 | MHC.CM.PN ---
IMM GIVEN 03/04. THIS CM MET WITH PT, HE STATES HE WAS AT [facility] FOR STR FOR 5 DAYS, AND PLANS TO GO HOME AT DISCHARGE. PT STATED HE FELT IRRITATED BECAUSE HE WAS TRYING TO [place] AND BECAUSE HE CAN'T HAVE WATER, AND THEREFOR OUR CONVERSATION WAS KEPT SHORT. PT STATED HE HAS A HCP, LOLY (SISTER) AND KATIE (EX-). THIS CM PLACED A CALL TO PTS HCP KATIE, SHE STATES THE PLAN IS FOR HIM TO RETURN TO [facility] AT DISCHARGE. KATIE STATES HE HAS BEEN BACK AND FORTH FROM HOSPITALS AND REHABS. KATIE STATES SHE WILL TRY TO FIND A COPY OF THE HCP. THIS CM PLACED A RETURN REFERRAL TO [facility] AND REQUESTED A COPY OF THE HCP. DCP: RETURN TO STR AT [facility] VIA BLS. PCP: DR. ACE LANG
[2025-03-04 12:29] LABS: Glucose, Whole Blood 122 mg/dL (60-115)
--- NOTE | 2025-03-04 12:54 | PM.PNGS ---
Subjective Subjective Date of Service: 03/04/25 Interval history: Patient says he is feeling much better abdomen is less uncomfortable and nontender Physical Exam Vital Signs: Vital Signs: Last Vital Signs Temp 97.9 F 03/04/25 11:56 Pulse 71 03/04/25 11:58 Resp 17 03/04/25 11:56 BP 102/60 03/04/25 11:58 Pulse Ox 96 03/04/25 11:56 O2 Del Method Room Air 03/04/25 11:56 O2 Flow Rate 97 03/03/25 19:00 Oxygen Flow Rate 2 03/02/25 21:40 BMI result Body Mass Index 29.0 Const: General: cooperative, healthy appearing, comfortable and no acute distress GI: Other: Abdomen is soft much less distended less ascites noted on exam very mild tenderness to paalpation in the left lower quadrant Objective Data Active Medications Dextrose (Dextrose 50 % 25 Gm/50 Ml Syringe) 25 gm IVPUSH Q15M PRN; Protocol PRN Reason: per Hypoglycemia Standing Ord. Furosemide (Furosemide 40 Mg/4 Ml Vial) 40 mg IVPUSH Q12H [facility]; Protocol Last Admin: 03/04/25 08:24 Dose: 40 mg Documented By: BULMARO Furosemide (Furosemide 40 Mg Tablet) 40 mg PO BID@0900,1800 [facility]; Protocol Last Admin: 03/04/25 10:54 Dose: Not Given Documented By: BULMARO Non-Admin Reason: Physician Held Med Glucose (Glucose Gel 15 Gm Gel..Gram.) 15 gm PO Q15M PRN; Protocol PRN Reason: per Hypoglycemia Standing Ord. Piperacillin Sod/Tazobactam (Sod 3.375 gm/ Sodium Chloride) 50 mls @ 100 mls/hr IV Q6H [facility] Stop: 03/04/25 13:00 Last Infusion: 03/04/25 11:41 Dose: Infused Documented By: BULMARO Vancomycin HCl 750 mg/ Sodium (Chloride) 265 mls @ 265 mls/hr IV Q8H [facility] Last Infusion: 03/04/25 11:59 Dose: Infused Documented By: BULMARO Norepinephrine Bitartrate (Levophed) 8 mg in 250 mls @ 0 mls/hr IVCONT .Q0M [facility]; Protocol Last Admin: 03/04/25 11:57 Dose: 0.05 mcg/kg/min, 7.88 mls/hr Documented By: BULMARO Piperacillin Sod/Tazobactam (Sod 4.5 gm/ Sodium Chloride) 100 mls @ 200 mls/hr IV Q6H [facility] Insulin Human Lispro (Insulin Lispro 100 Unit/Ml 3 Ml Vial) 0 unit SUBCUT Q6H [facility]; Protocol Last Admin: 03/04/25 05:47 Dose: Not Given Documented By: YAMILET Non-Admin Reason: No Insulin Coverage Pharmacy Consult (Consult Rx Vancomycin Dosing) 1 each MISCELLANE DAILY PRN PRN Reason: Consult order Sodium Chloride (0.9 % Sodium Chloride Flush 3 Ml Syringe) 3 ml IVFLUSH QSHIFT [facility] Last Admin: 03/04/25 08:24 Dose: 3 ml Documented By: BULMARO Spironolactone (Spironolactone 25 Mg Tablet) 25 mg PO DAILY [facility]; Protocol Last Admin: 03/04/25 10:56 Dose: 25 mg Documented By: BULMARO Labs 03/04/25 05:02 03/04/25 05:02 Labs: Laboratory Results - last 24 hr 03/03/25 03/03/25 03/03/25 11:20 13:58 18:21 MCV 93.9 MCH 33.2 H MCHC 35.4 RDW 14.3 Plt Count 133 L MPV 9.5 Immature Gran % (Auto) 1.0 H Neut % (Auto) 92.8 H Lymph % (Auto) 2.5 L [place] % (Auto) 3.3 Eos % (Auto) 0.2 Baso % (Auto) 0.2 Lymph # (Auto) 0.8 L [place] # (Auto) 1.1 Eos # (Auto) 0.1 Baso # (Auto) 0.1 Abs Immat Gran (auto) 0.34 H Absolute Neuts (auto) 30.8 H Absolute Nucleated RBC 0.000 Nucleated RBC % (auto) 0.0 Smear Tech's Comments VERIFIED Anion Gap Estim Creat Clear Calc Estimated GFR POC Glucose 97 Random Glucose Calcium Phosphorus Magnesium Total Bilirubin AST ALT Alkaline Phosphatase Total Protein Albumin Periton Neutrophils 45 Periton Lymphocytes 5 Peritoneal Monocytes 3 Peritoneal Other Cells 47 03/03/25 03/04/25 03/04/25 23:42 05:02 12:25 MCV 96.4 MCH 31.9 MCHC 33.1 RDW 14.5 Plt Count 121 L MPV 9.4 Immature Gran % (Auto) 1.0 H Neut % (Auto) 89.7 H Lymph % (Auto) 4.4 L [place] % (Auto) 4.5 Eos % (Auto) 0.1 Baso % (Auto) 0.3 Lymph # (Auto) 1.1 L [place] # (Auto) 1.1 Eos # (Auto) 0.0 Baso # (Auto) 0.1 Abs Immat Gran (auto) 0.26 H Absolute Neuts (auto) 22.8 H Absolute Nucleated RBC 0.000 Nucleated RBC % (auto) 0.0 Smear Tech's Comments VERIFIED Anion Gap 12 Estim Creat Clear Calc 97.8 Estimated GFR > 60 POC Glucose 115 122 H Random Glucose 110 Calcium 8.3 L D Phosphorus 3.3 Magnesium 1.6 Total Bilirubin 1.3 H AST 40 H ALT 6 Alkaline Phosphatase 43 Total Protein 4.7 L Albumin 3.3 L Periton Neutrophils Periton Lymphocytes Peritoneal Monocytes Peritoneal Other Cells Microbiology Microbiology Results: Microbiology 03/02/25 23:06 Urine Culture - Final Urine Catheterized No growth. 03/02/25 20:38 Gram Stain - Final Abdominal Fluid Routine Culture - Preliminary No growth to date. Anaerobic Culture - Preliminary No growth to date. 03/02/25 19:11 Blood Culture - Preliminary Blood - Venous Prelim: GPR Gram Stain only 03/02/25 18:51 Blood Culture - Preliminary Blood - Venous Prelim: [facility] Gram Stain only Procedures Date of Service Date of Service: 03/04/25 Progress Note: A&P Assessment and plan (1) Colitis: Status: Acute Assessment and Plan: Pt is much improved vitals - weaning off the pressors wbc improved abdomen exam still benign and will cont to treat conservatively. maybe advance diet to clear liquids. Time Spent With Patient Time: Total time managing care of this patient today ____ minutes. Quality Stroke Does the patient have a stroke diagnosis?: No VTE Prior VTE?: No VTE Risk Level:: Medical - moderate - high VTE Device Contraindication: N/A - Device Ordered VTE Drug Contraindication: N/A - Med Ordered
--- NOTE | 2025-03-04 14:47 | P.PNCC_ITS ---
Subjective Subjective Date of Service: 03/04/25 Interval History: No new complaints, pain much better On very small dose of Levophed 0.02 Critical Care Time (minutes): 35 Physical Exam 2 Vital Signs: Vital Signs: Last Vital Signs Temp 98.2 F 03/04/25 14:00 Pulse 76 03/04/25 14:00 Resp 21 H 03/04/25 14:00 BP 116/55 L 03/04/25 14:00 Pulse Ox 91 L 03/04/25 14:00 O2 Del Method Room Air 03/04/25 14:00 O2 Flow Rate 97 03/03/25 19:00 Oxygen Flow Rate 2 03/02/25 21:40 BMI result Body Mass Index 29.0 General: Elderly male in no acute distress Nutritional Appearance: well nourished and overweight Eyes: appearance normal, both eyes and all related structures; Alignment and Position: alignment normal and position normal Neck: No lymphadenopathy, no thyromegaly Resp: bilateral air entry equal, occasional added sounds present Cardio: Regular rate, regular rhythm; Heart sounds: S1 normal heart sound present and S2 normal heart sound present GI: soft, mild tenderness, no rigidity or guarding, no hepatosplenomegaly : bladder normal to inspection, bladder normal to palpation, no renal angle tenderness Skin: no rashes or lesions noted and elasticity normal Neuro: oriented to person, oriented to place, oriented to time and moves all extremities Objective Data Labs 03/04/25 05:02 03/04/25 05:02 Labs: Laboratory Results - last 24 hr 03/03/25 03/03/25 03/04/25 18:21 23:42 05:02 WBC 25.3 H RBC 3.07 L Hgb 9.8 L Hct 29.6 L MCV 96.4 MCH 31.9 MCHC 33.1 RDW 14.5 Plt Count 121 L MPV 9.4 Immature Gran % (Auto) 1.0 H Neut % (Auto) 89.7 H Lymph % (Auto) 4.4 L Bertie % (Auto) 4.5 Eos % (Auto) 0.1 Baso % (Auto) 0.3 Lymph # (Auto) 1.1 L Bertie # (Auto) 1.1 Eos # (Auto) 0.0 Baso # (Auto) 0.1 Abs Immat Gran (auto) 0.26 H Absolute Neuts (auto) 22.8 H Absolute Nucleated RBC 0.000 Nucleated RBC % (auto) 0.0 Smear Tech's Comments VERIFIED Sodium 136 Potassium 3.5 Chloride 101 Carbon Dioxide 27 Anion Gap 12 BUN 15 Creatinine 0.75 Estim Creat Clear Calc 97.8 Estimated GFR > 60 POC Glucose 97 115 Random Glucose 110 Calcium 8.3 L D Phosphorus 3.3 Magnesium 1.6 Total Bilirubin 1.3 H AST 40 H ALT 6 Alkaline Phosphatase 43 Total Protein 4.7 L Albumin 3.3 L 03/04/25 12:25 WBC RBC Hgb Hct MCV MCH MCHC RDW Plt Count MPV Immature Gran % (Auto) Neut % (Auto) Lymph % (Auto) Bertie % (Auto) Eos % (Auto) Baso % (Auto) Lymph # (Auto) Bertie # (Auto) Eos # (Auto) Baso # (Auto) Abs Immat Gran (auto) Absolute Neuts (auto) Absolute Nucleated RBC Nucleated RBC % (auto) Smear Tech's Comments Sodium Potassium Chloride Carbon Dioxide Anion Gap BUN Creatinine Estim Creat Clear Calc Estimated GFR POC Glucose 122 H Random Glucose Calcium Phosphorus Magnesium Total Bilirubin AST ALT Alkaline Phosphatase Total Protein Albumin Microbiology Microbiology Results: Microbiology 03/02/25 23:06 Urine Catheterized Urine Culture - Final No growth. 03/02/25 20:38 Abdominal Fluid Gram Stain - Final 03/02/25 20:38 Abdominal Fluid Routine Culture - Preliminary No growth to date. 03/02/25 20:38 Abdominal Fluid Anaerobic Culture - Preliminary No growth to date. 03/02/25 19:11 Blood - Venous Blood Culture - Preliminary Prelim: GPR Gram Stain only 03/02/25 18:51 Blood - Venous Blood Culture - Preliminary Prelim: GPR Gram Stain only Progress Note: A&P Assessment and plan (1) Colitis: Status: Acute (2) Severe sepsis: Status: Acute (3) Septic shock: Status: Acute (4) Pneumoperitoneum: Status: Acute Plan Septic Shock: Possibly secondary to colitis and SBP On Levophed support 0.02, titrate Levophed to keep map above 65 mm Hg GI: Decompensated alcohol-related liver cirrhosis: Has ascites and SBP, diagnostic paracentesis showing 280 WBCs. Repeated at therapeutic paracentesis with 3.5 L ascitic fluid drained, repeat WBC count is 500, fluid looks clean and does not look like up perforation or pus. Viscous perforation is unlikely given his soft abdomen, stable vitals with improvement in the vasopressor requirement, other organs normal. General surgery is involved in the case, appreciate recommendations. CT abdomen showing colitis, some air in the abdomen and early pneumatocele formation around the colon; patient has a history of paracentesis prior to CT. We will closely monitor his clinical status, if any changes possibly might need a laparotomy to look for perforation. Since he is improving and the pain is better we will start him on a soft diet Continue home Lasix and spironolactone for ascites Renal: Renal function stable, will switch Lasix to p.o. We will closely monitor I's and O's Avoid nephrotoxic medications Heme: Chronic anemia, closely monitor H&H, transfuse for hemoglobin less than 7 grams/deciliter Endocrine: Diabetes mellitus: Blood sugars under control Sliding scale insulin as needed Infectious disease: Pending pancultures On empiric Zosyn for SBP and bowel infection Received 1 dose of fluconazole on the night of admission, if his clinical status deteriorates we will restart fluconazole Musculoskeletal: Decubitus ulcer prevention protocol Lines: Peripheral Prophylaxis: SCD, pantoprazole Quality Stroke Does the patient have a stroke diagnosis?: No VTE Prior VTE?: No VTE Risk Level:: Medical - moderate - high VTE Device Contraindication: N/A - Device Ordered VTE Drug Contraindication: N/A - Med Ordered
[2025-03-04 15:14] LABS: OBS Int Ctl Valid YES; OBS1 NEGATIVE (NEGATIVE)
[2025-03-04 17:34] LABS: Glucose, Whole Blood 186 mg/dL (60-115)
--- NOTE | 2025-03-04 19:12 | PC.NURSE ---
Assumed care @ 0700 Alert & oriented, ?On RA, Dim lung sounds.? Sinus Rhythm on tele, Levophed gtt, MAP goal >65.? LBM 10/5, +bowel sounds, Clear liquid diet. Johnson in place, Patent/draining. Impaired skin integrity, see skin assessment. (foam DGS applied, reposition maintained) IV abx, Afebrile?? TLC L. IJ, peripheral IV x1.
[2025-03-04] MEDS: Albumin Human 25 % 100 ML 133.33 ML IV ×2 (20:46→22:22)
[2025-03-05] VITALS (26 sets, daily range): BP systolic 87–133; BP diastolic 49–76; PULSE 61–84; RESP 12–23; TEMP 36.1–37.1; O2SAT 89–99
[2025-03-05 00:07] LABS: Glucose, Whole Blood 100 mg/dL (60-115)
[2025-03-05] MEDS: 0.9 % Sodium Chloride Flush 3 ML SYRINGE IVFLUSH ×3 (00:33→16:27)
[2025-03-05 05:08] LABS: MANUAL DIFF FLAG NO
[2025-03-05 05:09] LABS: Hematocrit 26.7 % (42.0-52.0); Hemoglobin 9.3 g/dl (14.0-18.0); Imm Gran Abs Auto 0.03 X10*3/uL (0.00-0.03); Imm Gran Pct Auto 0.3 % (0.0-0.4); Lymphocytes Absolute Auto 1.3 X10*3/uL (1.2-4.9); Mean Corpuscular HGB Conc 34.8 g/dl (31.0-36.0); Mean Corpuscular Hemoglobin 32.7 pg (27.0-33.0); Mean Corpuscular Volume 94.0 fL (80.0-98.0); NRBC Abs Auto 0.000 X10*3/uL (0.0-0.012); NRBC Pct Auto 0.0 /100WBC (0.0-0.2); Platelet Count 105 X10*3/uL (160-400); Red Blood Count 2.84 X10*6/uL (4.60-5.80); White Blood Count 10.8 X10*3/uL (4.8-10.8)
[2025-03-05 05:38] LABS: Alanine Aminotransferase 10 U/L (0-40); Albumin Level 3.3 g/dL (3.5-5.0); Alkaline Phosphatase 46 U/L (39-117); Anion Gap 11 (12-20); Aspartate Amino Transferase 50 U/L (5-37); Blood Urea Nitrogen 12 mg/dL (9-16); Calcium 8.0 mg/dL (8.4-10.2); Carbon Dioxide 28 mmol/L (22-29); Chloride 100 mmol/L (96-108); Creatinine Clr Calc Pharmacy 107.8; Estimated Glomerular Filt Rate > 60; Magnesium 1.4 mg/dL (1.6-2.6); Potassium 3.3 mmol/L (3.3-5.1); Sodium 136 mmol/L (135-145); Total Protein 4.7 g/dL (6.5-8.0)
[2025-03-05] MEDS: Magnesium Sulfate/H2O 2 GM/50 ML PIGGYBACK IV (06:23)
[2025-03-05] MEDS: Potassium Chloride ER 20 MEQ TAB.ER.PRT PO (06:23)
--- NOTE | 2025-03-05 06:49 | HE.PHANOTE ---
Re [place]: Renal improving. Trough returned at 15.0. Continue current dose of 750mg q12h, with predicted AUC 486, predicted trough 15.9. Next trough 03/05/25 @ 0600.
[2025-03-05 07:08] LABS: pH Peritoneal Fluid 7.59
[2025-03-05 07:10] LABS: Creatinine Peritoneal Fluid 0.8
--- NOTE | 2025-03-05 08:51 | PM.PNGS ---
Subjective Subjective Date of Service: 03/05/25 <Amari Mcgill PA-C - Last Filed: 03/05/25 09:00> 03/05/25 <Dann Montero MD - Last Filed: 03/05/25 09:24> Interval history: Reports he is doing well, very hungry. Abdominal pain improving, denies nausea or vomiting. Passing gas, unsure about bowel movements. Per nursing reports, large loose bowel movement on 03/04/2025. Tolerating clear liquids. He is very frustrated because apparently he keeps getting told that his diet will be advanced without any follow-through <Amari Mcgill PA-C - Last Filed: 03/05/25 09:00> Physical Exam Vital Signs: Vital Signs: Last Vital Signs Temp 97.3 F 03/05/25 08:00 Pulse 61 03/05/25 08:00 Resp 15 03/05/25 08:00 BP 104/59 L 03/05/25 08:00 Pulse Ox 96 03/05/25 08:00 O2 Del Method Room Air 03/05/25 08:00 O2 Flow Rate 97 03/03/25 19:00 Oxygen Flow Rate 2 03/02/25 21:40 BMI result Body Mass Index 29.0 <Amari Mcgill PA-C - Last Filed: 03/05/25 09:00> Const: General: comfortable and no acute distress <MICHAEL Mendiola Last Filed: 03/05/25 09:00> Orientation/consciousness: patient oriented x3 <Amari Mcgill PA-C - Last Filed: 03/05/25 09:00> Resp: Effort & Inspection: normal respiratory effort and able to speak in complete sentences <Amari Mcgill PA-C - Last Filed: 03/05/25 09:00> GI: Inspection: No distended <MICHAEL Mendiola Last Filed: 03/05/25 09:00> Palpation (GI): Soft to palpation, nontender and no guarding <MICHAEL Mendiola Last Filed: 03/05/25 09:00> Neuro: General: patient oriented x3 <MICHAEL Mendiola Last Filed: 03/05/25 09:00> Objective Data Active Medications Dextrose (Dextrose 50 % 25 Gm/50 Ml Syringe) 25 gm IVPUSH Q15M PRN; Protocol PRN Reason: per Hypoglycemia Standing Ord. Furosemide (Furosemide 40 Mg Tablet) 40 mg PO BID@0900,1800 [facility]; Protocol Last Admin: 03/04/25 18:10 Dose: 40 mg Documented By: BULMARO Glucose (Glucose Gel 15 Gm Gel..Gram.) 15 gm PO Q15M PRN; Protocol PRN Reason: per Hypoglycemia Standing Ord. Norepinephrine Bitartrate (Levophed) 8 mg in 250 mls @ 0 mls/hr IVCONT .Q0M [facility]; Protocol Last Titration: 03/05/25 01:09 Dose: 0 mcg/kg/min, 0 mls/hr Documented By: YAMILET Piperacillin Sod/Tazobactam (Sod 4.5 gm/ Sodium Chloride) 100 mls @ 200 mls/hr IV Q6H [facility] Last Infusion: 03/05/25 05:50 Dose: Infused Documented By: YAMILET Vancomycin HCl 750 mg/ Sodium (Chloride) 265 mls @ 265 mls/hr IV Q12H [facility] Insulin Human Lispro (Insulin Lispro 100 Unit/Ml 3 Ml Vial) 0 unit SUBCUT Q6H [facility]; Protocol Last Admin: 03/05/25 05:43 Dose: Not Given Documented By: YAMILET Non-Admin Reason: No Insulin Coverage Nystatin (Nystatin Powder 15 Gm Bottle) 1 appl TOPICAL BID [facility]; Protocol Last Admin: 03/04/25 20:52 Dose: 1 appl Documented By: YAMILET Pharmacy Consult (Consult Rx Vancomycin Dosing) 1 each MISCELLANE DAILY PRN PRN Reason: Consult order Sodium Chloride (0.9 % Sodium Chloride Flush 3 Ml Syringe) 3 ml IVFLUSH QSHIFT [facility] Last Admin: 03/05/25 00:33 Dose: 3 ml Documented By: YAMILET Spironolactone (Spironolactone 25 Mg Tablet) 25 mg PO DAILY [facility]; Protocol Last Admin: 03/04/25 10:56 Dose: 25 mg Documented By: BULMARO <Amari Mcgill PA-C - Last Filed: 03/05/25 09:00> Labs CBC & Chem 7: 03/05/25 04:38 03/05/25 04:38 <Amari Mcgill PA-C - Last Filed: 03/05/25 09:00> Labs: Laboratory Results - last 24 hr 03/03/25 03/04/25 03/04/25 11:20 12:25 15:05 MCV MCH MCHC RDW Plt Count MPV Immature Gran % (Auto) Neut % (Auto) Lymph % (Auto) [place] % (Auto) Eos % (Auto) Baso % (Auto) Lymph # (Auto) [place] # (Auto) Eos # (Auto) Baso # (Auto) Abs Immat Gran (auto) Absolute Neuts (auto) Absolute Nucleated RBC Nucleated RBC % (auto) Anion Gap Estim Creat Clear Calc Estimated GFR POC Glucose 122 H Random Glucose Lactic Acid Calcium Phosphorus Magnesium Total Bilirubin AST ALT Alkaline Phosphatase Total Protein Albumin Peritoneal pH 7.59 Peritoneal Creatinine 0.8 Peritoneal Tot Protein 2.3 Peritoneal LDH 62 Peritoneal Glucose 130 Peritoneal Amylase 11 Stool Occult Blood NEGATIVE Random Vancomycin 03/04/25 03/04/25 03/05/25 16:02 17:31 00:03 MCV MCH MCHC RDW Plt Count MPV Immature Gran % (Auto) Neut % (Auto) Lymph % (Auto) [place] % (Auto) Eos % (Auto) Baso % (Auto) Lymph # (Auto) [place] # (Auto) Eos # (Auto) Baso # (Auto) Abs Immat Gran (auto) Absolute Neuts (auto) Absolute Nucleated RBC Nucleated RBC % (auto) Anion Gap Estim Creat Clear Calc Estimated GFR POC Glucose 186 H 100 Random Glucose Lactic Acid Calcium Phosphorus Magnesium Total Bilirubin AST ALT Alkaline Phosphatase Total Protein Albumin Peritoneal pH Peritoneal Creatinine Peritoneal Tot Protein Peritoneal LDH Peritoneal Glucose Peritoneal Amylase Stool Occult Blood Random Vancomycin 24.9 H 03/05/25 03/05/25 03/05/25 04:38 06:08 08:13 MCV 94.0 MCH 32.7 MCHC 34.8 RDW 14.4 Plt Count 105 L MPV 9.3 L Immature Gran % (Auto) 0.3 Neut % (Auto) 78.3 H Lymph % (Auto) 12.1 L [place] % (Auto) 7.9 Eos % (Auto) 1.2 Baso % (Auto) 0.2 Lymph # (Auto) 1.3 [place] # (Auto) 0.9 Eos # (Auto) 0.1 Baso # (Auto) 0.0 Abs Immat Gran (auto) 0.03 Absolute Neuts (auto) 8.5 H Absolute Nucleated RBC 0.000 Nucleated RBC % (auto) 0.0 Anion Gap 11 L Estim Creat Clear Calc 107.8 Estimated GFR > 60 POC Glucose Random Glucose 93 Lactic Acid 1.3 Calcium 8.0 L Phosphorus 2.9 Magnesium 1.4 L* Total Bilirubin 1.2 H AST 50 H ALT 10 Alkaline Phosphatase 46 Total Protein 4.7 L Albumin 3.3 L Peritoneal pH Peritoneal Creatinine Peritoneal Tot Protein Peritoneal LDH Peritoneal Glucose Peritoneal Amylase Stool Occult Blood Random Vancomycin 15.0 <Amari Mcgill PA-C - Last Filed: 03/05/25 09:00> Microbiology Microbiology Results: Microbiology 03/02/25 19:11 Blood Culture - Preliminary Blood - Venous Prelim: GPR Gram Stain only 03/02/25 18:51 Blood Culture - Preliminary Blood - Venous Prelim: GPR Gram Stain only 03/02/25 20:38 Gram Stain - Final Abdominal Fluid Routine Culture - Final No growth after 2 days Anaerobic Culture - Preliminary No growth to date. 03/02/25 23:06 Urine Culture - Final Urine Catheterized No growth. <Amari Mcgill PA-C - Last Filed: 03/05/25 09:00> Procedures Date of Service Date of Service: 03/05/25 <Amari Mcgill PA-C - Last Filed: 03/05/25 09:00> 03/05/25 <Dann Montero MD - Last Filed: 03/05/25 09:24> Progress Note: A&P Assessment and plan (1) Colitis: Status: Acute <Amari Mcgill PA-C - Last Filed: 03/05/25 09:00> Assessment and Plan: Continues to feel well with regards to the abdomen Denies any abdominal pain or discomfort No nausea or vomiting Abdomen is soft, benign, nontender Okay to try to advance diet today after swallow eval Hemodynamically stable Clinically looks well - does not appear to have perforated viscus Seen and examined independently <Dann Montero MD - Last Filed: 03/05/25 09:24> Assessment and Plan: 69-year-old male with underlying alcohol related cirrhosis, ascites, type 2 diabetes, hyperlipidemia, hypertension, anemia of chronic disease. General surgery following for colitis, free air in the abdomen. Patient did have paracentesis x2 which is likely the cause of the intra-abdominal free air. Patient improving overall. Denying pain, nausea, vomiting. Passing gas, he did pass a large bowel movement yesterday. Tolerating clear liquid diets. He is very hungry, frustrated because multiple people have told him that they will advance diet but he has not seen any results of this. I discussed with automation qtp tester to agrees we can advance diet pending swallow eval. I informed him that this was the plan, he remained frustrated because he states he has already had a swallow eval. On exam the abdomen is soft and benign, leukocytosis improved today Advance diet as tolerated, recommends starting slow. Serial abdominal exams <Amari Mcgill PA-C - Last Filed: 03/05/25 09:00> Time Spent With Patient Time: Total time managing care of this patient today ____ minutes. <Amari Mcgill PA-C - Last Filed: 03/05/25 09:00> Quality Stroke Does the patient have a stroke diagnosis?: No <Amari Mcgill PA-C - Last Filed: 03/05/25 09:00> VTE Prior VTE?: No <Amari Mcgill PA-C - Last Filed: 03/05/25 09:00> VTE Risk Level:: Medical - moderate - high <Amari Mcgill PA-C - Last Filed: 03/05/25 09:00> VTE Device Contraindication: N/A - Device Ordered <Amari Mcgill PA-C - Last Filed: 03/05/25 09:00> VTE Drug Contraindication: N/A - Med Ordered <Amari Mcgill PA-C - Last Filed: 03/05/25 09:00>
[2025-03-05] MEDS: Albumin Human 25 % 50 ML 100 ML IV (09:00)
--- NOTE | 2025-03-05 09:20 | P.PNCC_ITS ---
Subjective Subjective Date of Service: 03/05/25 Critical Care Time (minutes): 60 Physical Exam 2 Vital Signs: Vital Signs: Last Vital Signs Temp 97.3 F 03/05/25 08:00 Pulse 61 03/05/25 08:00 Resp 15 03/05/25 08:00 BP 115/69 03/05/25 09:01 Pulse Ox 96 03/05/25 08:00 O2 Del Method Room Air 03/05/25 08:00 O2 Flow Rate 97 03/03/25 19:00 Oxygen Flow Rate 2 03/02/25 21:40 BMI result Body Mass Index 29.0 Objective Data Labs 03/05/25 04:38 03/05/25 04:38 Labs: Laboratory Results - last 24 hr 03/03/25 03/04/25 03/04/25 11:20 12:25 15:05 WBC RBC Hgb Hct MCV MCH MCHC RDW Plt Count MPV Immature Gran % (Auto) Neut % (Auto) Lymph % (Auto) [place] % (Auto) Eos % (Auto) Baso % (Auto) Lymph # (Auto) [place] # (Auto) Eos # (Auto) Baso # (Auto) Abs Immat Gran (auto) Absolute Neuts (auto) Absolute Nucleated RBC Nucleated RBC % (auto) Sodium Potassium Chloride Carbon Dioxide Anion Gap BUN Creatinine Estim Creat Clear Calc Estimated GFR POC Glucose 122 H Random Glucose Lactic Acid Calcium Phosphorus Magnesium Total Bilirubin AST ALT Alkaline Phosphatase Total Protein Albumin Peritoneal pH 7.59 Peritoneal Creatinine 0.8 Peritoneal Tot Protein 2.3 Peritoneal LDH 62 Peritoneal Glucose 130 Peritoneal Amylase 11 Stool Occult Blood NEGATIVE Random Vancomycin 03/04/25 03/04/25 03/05/25 16:02 17:31 00:03 WBC RBC Hgb Hct MCV MCH MCHC RDW Plt Count MPV Immature Gran % (Auto) Neut % (Auto) Lymph % (Auto) [place] % (Auto) Eos % (Auto) Baso % (Auto) Lymph # (Auto) [place] # (Auto) Eos # (Auto) Baso # (Auto) Abs Immat Gran (auto) Absolute Neuts (auto) Absolute Nucleated RBC Nucleated RBC % (auto) Sodium Potassium Chloride Carbon Dioxide Anion Gap BUN Creatinine Estim Creat Clear Calc Estimated GFR POC Glucose 186 H 100 Random Glucose Lactic Acid Calcium Phosphorus Magnesium Total Bilirubin AST ALT Alkaline Phosphatase Total Protein Albumin Peritoneal pH Peritoneal Creatinine Peritoneal Tot Protein Peritoneal LDH Peritoneal Glucose Peritoneal Amylase Stool Occult Blood Random Vancomycin 24.9 H 03/05/25 03/05/25 03/05/25 04:38 06:08 08:13 WBC 10.8 RBC 2.84 L Hgb 9.3 L Hct 26.7 L MCV 94.0 MCH 32.7 MCHC 34.8 RDW 14.4 Plt Count 105 L MPV 9.3 L Immature Gran % (Auto) 0.3 Neut % (Auto) 78.3 H Lymph % (Auto) 12.1 L [place] % (Auto) 7.9 Eos % (Auto) 1.2 Baso % (Auto) 0.2 Lymph # (Auto) 1.3 [place] # (Auto) 0.9 Eos # (Auto) 0.1 Baso # (Auto) 0.0 Abs Immat Gran (auto) 0.03 Absolute Neuts (auto) 8.5 H Absolute Nucleated RBC 0.000 Nucleated RBC % (auto) 0.0 Sodium 136 Potassium 3.3 Chloride 100 Carbon Dioxide 28 Anion Gap 11 L BUN 12 Creatinine 0.67 Estim Creat Clear Calc 107.8 Estimated GFR > 60 POC Glucose Random Glucose 93 Lactic Acid 1.3 Calcium 8.0 L Phosphorus 2.9 Magnesium 1.4 L* Total Bilirubin 1.2 H AST 50 H ALT 10 Alkaline Phosphatase 46 Total Protein 4.7 L Albumin 3.3 L Peritoneal pH Peritoneal Creatinine Peritoneal Tot Protein Peritoneal LDH Peritoneal Glucose Peritoneal Amylase Stool Occult Blood Random Vancomycin 15.0 Microbiology Microbiology Results: Microbiology 03/02/25 19:11 Blood - Venous Blood Culture - Preliminary Prelim: GPR Gram Stain only 03/02/25 18:51 Blood - Venous Blood Culture - Preliminary Prelim: GPR Gram Stain only 03/02/25 20:38 Abdominal Fluid Gram Stain - Final 03/02/25 20:38 Abdominal Fluid Routine Culture - Final No growth after 2 days 03/02/25 20:38 Abdominal Fluid Anaerobic Culture - Preliminary No growth to date. 03/02/25 23:06 Urine Catheterized Urine Culture - Final No growth. Progress Note: A&P Assessment and plan (1) Septic shock: Status: Acute (2) SBP (spontaneous bacterial peritonitis): Status: Acute Plan Patient?is a 69 Y M w/ hypertension, hyperlipidemia, diabetes mellitus, alcohol misuse c/b cirrhosis, ascites, presenting to ED from nursing home facility on 03/02 w/ abdominal pain, found to be febrile, hypotensive; ED work-up suggestive of SBP N: no acute issues CV: septic shock, s/p norepinephrine gtt R: no acute issues GI: SBP; regular diet : no acute issues; to monitor renal indices/electrolytes H: no acute issues; chemical DVT prophylaxis ID: SBP, on zosyn, to follow-up ACx, BCx E: to monitor hypo-/hyper-glycemia P: no acute issues S: daily updates given to sister Quality Stroke Does the patient have a stroke diagnosis?: No VTE Prior VTE?: No VTE Risk Level:: Medical - moderate - high VTE Device Contraindication: N/A - Device Ordered VTE Drug Contraindication: N/A - Med Ordered
[2025-03-05 12:12] LABS: Glucose, Whole Blood 133 mg/dL (60-115)
[2025-03-05] MEDS: Calcium Gluconate/NaCl,Iso-Osm 1 GM/50 ML PLAST..BAG IV (12:18)
--- NOTE | 2025-03-05 12:44 | HO.WOUND ---
Wound Consult: Initial 69yr old?male admitted to [facility] on 03/02/25 - See progress notes and H&P for detailed history.? Wound consult placed for Right Occiput and left foot wounds.? Patient agreeable to assessment and photo documentation.? Left Elbow intact red pink blanchable tissue - no PI noted - foam dressing in place and recommend continue to off load pressure and protect from friction. Right Elbow - intact stable dried scab noted -redness remains intact and blanchable - foam dressing in place reapplied - no concerns noted at this time. Right Foot noted for intact redness - remains blanchable no injust noted. Left Foot - Unroofed blister - red pink clean wound bed - epidermal lifting noted - periwound intact - foam dressing applied Right Temporal side - resurfacing wounds beds - clean pink tissue - nearly resurfaced - recommend foam dressing. Recommendations: 1. Turn and Reposition every 2 hours and as needed for patient comfort.? Use pillows or wedges to support off loading positions. 2. Off Load all bony prominences with use of pillows and heel boots if needed.? Apply Preventative foams where needed. ? 3. Monitor for incontinence and moisture control, use barrier creams when needed for prevention and treatment. 4. Provide adequate and supplemental nutrition.? 5.Continue low air loss mattress. 6. When applicable maintain blood glucose levels per Providers order. Left Foot and Right Temporal Head - Cleanse with NS moist gauze, Pat dry. Apply skin prep allow to dry. Cover with foam dressing change every 3 days and PRN. Re-consult wound care Nurse for wound deterioration or wound changes.
--- NOTE | 2025-03-05 14:32 | MHC.CM.PN ---
Pt continues on pressors for BP management: D/C plan is to return to [facility] for continued STR care
--- NOTE | 2025-03-05 17:51 | PM.EVENT ---
Event Note Date of Service: 03/05/25 Event Note: On afternoon rounds He says he is doing well Denies abdominal pain Currently on diet Abdomen remained soft and benign Continue current care Time Spent With Patient Time: Total time managing care of this patient today ____ minutes.
[2025-03-05 18:35] LABS: Glucose, Whole Blood 169 mg/dL (60-115)
--- NOTE | 2025-03-05 19:19 | PC.NURSE ---
Alert & oriented, ?On RA, Dim lung sounds.? Sinus Rhythm on tele, Soft BPs this afternoon, back on Levophed gtt, per MAR,? Map goal >65.? ?LBM 10/, +bowel sounds, Regular diet, POC, sliding scale. Johnson in place, Patent/draining. Impaired skin integrity, see skin assessment. (foam DGS applied, reposition maintained) IV abx, Afebrile??
--- NOTE | 2025-03-05 19:24 | PC.NURSE ---
On Sedation vacation and PVS since approx 1529. Opens eyes, tracks the speaker, moves upper extremities spontaneously, and follows simple commands. OG tube clamp,?rectal tube and nova catheter patent and draining.?
[2025-03-05 23:51] LABS: Glucose, Whole Blood 127 mg/dL (60-115)
[2025-03-06] VITALS (28 sets, daily range): BP systolic 95–133; BP diastolic 48–79; PULSE 59–117; RESP 12–24; TEMP 36.1–37.1; O2SAT 90–98; BMI 29.0
[2025-03-06 05:48] LABS: MANUAL DIFF FLAG NO
--- NOTE | 2025-03-06 05:50 | PC.NURSE ---
upon initial assessment pt complaining of itching, diffuse red rash noted to abdomen, Deck Cadet made aware hold vanco Benadryl ordered. Pt washed with cool clothes. Drainage noted from paracentsis site. occlusive dressing applied and changed twice this shift d/t saturation. levo titrated see MAR. plan of care continues
[2025-03-06 05:52] LABS: Hematocrit 28.6 % (42.0-52.0); Hemoglobin 9.7 g/dl (14.0-18.0); Imm Gran Abs Auto 0.06 X10*3/uL (0.00-0.03); Imm Gran Pct Auto 0.7 % (0.0-0.4); Lymphocytes Absolute Auto 1.3 X10*3/uL (1.2-4.9); Mean Corpuscular HGB Conc 33.9 g/dl (31.0-36.0); Mean Corpuscular Hemoglobin 32.0 pg (27.0-33.0); Mean Corpuscular Volume 94.4 fL (80.0-98.0); NRBC Abs Auto 0.000 X10*3/uL (0.0-0.012); NRBC Pct Auto 0.0 /100WBC (0.0-0.2); Platelet Count 108 X10*3/uL (160-400); Red Blood Count 3.03 X10*6/uL (4.60-5.80); White Blood Count 8.6 X10*3/uL (4.8-10.8)
[2025-03-06 06:01] LABS: Albumin Level 2.8 g/dL (3.5-5.0)
[2025-03-06 06:09] LABS: Creatinine Clr Calc Pharmacy 92.6; Estimated Glomerular Filt Rate > 60
[2025-03-06 06:21] LABS: Anion Gap 11 (12-20); Blood Urea Nitrogen 12 mg/dL (9-16); Calcium 7.6 mg/dL (8.4-10.2); Carbon Dioxide 28 mmol/L (22-29); Chloride 101 mmol/L (96-108); Creatinine Clr Calc Pharmacy 91.4; Estimated Glomerular Filt Rate > 60; Magnesium 1.4 mg/dL (1.6-2.6); Potassium 3.0 mmol/L (3.3-5.1); Sodium 137 mmol/L (135-145)
[2025-03-06] MEDS: Magnesium Sulfate/H2O 2 GM/50 ML PIGGYBACK IV (06:31)
--- NOTE | 2025-03-06 07:44 | PM.PNGS ---
Subjective Subjective Date of Service: 03/06/25 <Amari Mcgill PA-C - Last Filed: 03/06/25 07:54> 03/06/25 <Dann Montero MD - Last Filed: 03/06/25 14:57> Interval history: no new complaints. diet was advanced yesterday. he tolerated well. passing gas, denies nausea vomiting. He is very excited to eat breakfast <Amari Mcgill PA-C - Last Filed: 03/06/25 07:54> Physical Exam Vital Signs: Vital Signs: Last Vital Signs Temp 98.4 F 03/06/25 07:00 Pulse 79 03/06/25 07:00 Resp 18 03/06/25 07:00 BP 99/53 L 03/06/25 07:00 Pulse Ox 98 03/06/25 07:00 O2 Del Method Room Air 03/06/25 07:00 O2 Flow Rate 97 03/03/25 19:00 Oxygen Flow Rate 2 03/02/25 21:40 BMI result Body Mass Index 29.0 <Amari Mcgill PA-C - Last Filed: 03/06/25 07:54> Const: General: comfortable and no acute distress <Amari Mcgill PA-C - Last Filed: 03/06/25 07:54> Orientation/consciousness: patient oriented x3 <Amari Mcgill PA-C - Last Filed: 03/06/25 07:54> GI: Other: RLQ paracentesis site is open, about 0.6 cm, draining ascitic fluid <Amari Mcgill PA-C - Last Filed: 03/06/25 07:54> Inspection: No distended <MICHAEL Mendiola Last Filed: 03/06/25 07:54> Palpation (GI): Soft to palpation, nontender and no guarding <Amari Mcgill PA-C - Last Filed: 03/06/25 07:54> Neuro: General: patient oriented x3 <MICHAEL Mendiola Last Filed: 03/06/25 07:54> Objective Data Active Medications Dextrose (Dextrose 50 % 25 Gm/50 Ml Syringe) 25 gm IVPUSH Q15M PRN; Protocol PRN Reason: per Hypoglycemia Standing Ord. Furosemide (Furosemide 40 Mg Tablet) 40 mg PO BID@0900,1800 [facility]; Protocol Last Admin: 03/05/25 17:42 Dose: 40 mg Documented By: BULMARO Glucose (Glucose Gel 15 Gm Gel..Gram.) 15 gm PO Q15M PRN; Protocol PRN Reason: per Hypoglycemia Standing Ord. Piperacillin Sod/Tazobactam (Sod 4.5 gm/ Sodium Chloride) 100 mls @ 200 mls/hr IV Q6H [facility] Last Infusion: 03/06/25 05:07 Dose: Infused Documented By: VIPIN Albumin Human (Kedbumin 25 %) 50 mls @ 100 mls/hr IV Q30M [facility] Stop: 03/06/25 09:59 Potassium Phosphate (Kphos) 15 mmol in 250 mls @ 62.5 mls/hr IV Q4H [facility] Stop: 03/06/25 15:59 Magnesium Sulfate (Magnesium Sulfate/H2o) 2 gm in 50 mls @ 25 mls/hr IV ONCE ONE Stop: 03/06/25 08:20 Last Admin: 03/06/25 06:31 Dose: 25 mls/hr Documented By: VIPIN Calcium Gluconate (Calcium Gluconate) 1 gm in 50 mls @ 50 mls/hr IV ONCE ONE Stop: 03/06/25 08:59 Norepinephrine Bitartrate (Levophed) 8 mg in 250 mls @ 0 mls/hr IVCONT .Q0M [facility]; Protocol Insulin Human Lispro (Insulin Lispro 100 Unit/Ml 3 Ml Vial) 0 unit SUBCUT Q6H [facility]; Protocol Last Admin: 03/06/25 06:24 Dose: Not Given Documented By: VIPIN Non-Admin Reason: No Insulin Coverage Lactulose (Lactulose 20 Gm/30 Ml Solution) 10 gm PO DAILY [facility] Nystatin (Nystatin Powder 15 Gm Bottle) 1 appl TOPICAL BID [facility]; Protocol Last Admin: 03/05/25 21:16 Dose: 1 appl Documented By: VIPIN Sodium Chloride (0.9 % Sodium Chloride Flush 3 Ml Syringe) 3 ml IVFLUSH QSHIFT [facility] Last Admin: 03/06/25 00:14 Dose: Not Given Documented By: VIPIN Non-Admin Reason: IV Running Spironolactone (Spironolactone 25 Mg Tablet) 25 mg PO DAILY [facility]; Protocol Last Admin: 03/05/25 09:01 Dose: 25 mg Documented By: BULMARO <Amari Mcgill PA-C - Last Filed: 03/06/25 07:54> Labs CBC & Chem 7: 03/06/25 05:01 03/06/25 05:01 <Amari Mcgill PA-C - Last Filed: 03/06/25 07:54> Labs: Laboratory Results - last 24 hr 03/02/25 03/05/25 03/05/25 20:38 08:13 12:09 MCV MCH MCHC RDW Plt Count MPV Immature Gran % (Auto) Neut % (Auto) Lymph % (Auto) [place] % (Auto) Eos % (Auto) Baso % (Auto) Lymph # (Auto) [place] # (Auto) Eos # (Auto) Baso # (Auto) Abs Immat Gran (auto) Absolute Neuts (auto) Absolute Nucleated RBC Nucleated RBC % (auto) Anion Gap Estim Creat Clear Calc Estimated GFR POC Glucose 133 H Random Glucose Lactic Acid 1.3 Calcium Phosphorus Magnesium Albumin TSH Peritoneal pH Cancelled Peritoneal Tot Protein Cancelled Peritoneal Albumin Cancelled Peritoneal LDH Cancelled Peritoneal Glucose Cancelled Peritoneal Amylase Cancelled Random Vancomycin 03/05/25 03/05/25 03/06/25 18:30 23:45 05:01 MCV 94.4 MCH 32.0 MCHC 33.9 RDW 14.2 Plt Count 108 L MPV 9.8 Immature Gran % (Auto) 0.7 H Neut % (Auto) 72.8 Lymph % (Auto) 15.5 L [place] % (Auto) 8.6 Eos % (Auto) 2.2 Baso % (Auto) 0.2 Lymph # (Auto) 1.3 [place] # (Auto) 0.7 Eos # (Auto) 0.2 Baso # (Auto) 0.0 Abs Immat Gran (auto) 0.06 H Absolute Neuts (auto) 6.3 Absolute Nucleated RBC 0.000 Nucleated RBC % (auto) 0.0 Anion Gap 11 L Estim Creat Clear Calc 92.6 Estimated GFR POC Glucose 169 H 127 H Random Glucose Lactic Acid Calcium Phosphorus Magnesium Albumin TSH Peritoneal pH Peritoneal Tot Protein Peritoneal Albumin Peritoneal LDH Peritoneal Glucose Peritoneal Amylase Random Vancomycin 03/06/25 03/06/25 03/06/25 05:01 05:01 05:37 MCV MCH MCHC RDW Plt Count MPV Immature Gran % (Auto) Neut % (Auto) Lymph % (Auto) [place] % (Auto) Eos % (Auto) Baso % (Auto) Lymph # (Auto) [place] # (Auto) Eos # (Auto) Baso # (Auto) Abs Immat Gran (auto) Absolute Neuts (auto) Absolute Nucleated RBC Nucleated RBC % (auto) Anion Gap Estim Creat Clear Calc 91.4 Estimated GFR > 60 > 60 POC Glucose Random Glucose 162 H Lactic Acid 1.6 Calcium 7.6 L Phosphorus 2.3 L Magnesium 1.4 L* Albumin 2.8 L TSH 3.71 Peritoneal pH Peritoneal Tot Protein Peritoneal Albumin Peritoneal LDH Peritoneal Glucose Peritoneal Amylase Random Vancomycin 11.1 L <Amari Mcgill PA-C - Last Filed: 03/06/25 07:54> Microbiology Microbiology Results: Microbiology 03/02/25 19:11 Blood Culture - Final Blood - Venous Actinomyces species 03/02/25 18:51 Blood Culture - Final Blood - Venous Actinomyces species 03/02/25 20:38 Gram Stain - Final Abdominal Fluid Routine Culture - Final No growth after 2 days Anaerobic Culture - Preliminary No growth to date. <Amari Mcgill PA-C - Last Filed: 03/06/25 07:54> Procedures Date of Service Date of Service: 03/06/25 <Amari Mcgill PA-C - Last Filed: 03/06/25 07:54> 03/06/25 <Dann Montero MD - Last Filed: 03/06/25 14:57> Progress Note: A&P Assessment and plan (1) Colitis: Status: Acute <Amari Mcgill PA-C - Last Filed: 03/06/25 07:54> Assessment and Plan: Tolerating regular diet Passing flatus Abdomen is soft and benign, with ascites He feels well overall Uncertain as to the etiology of free air in the peritoneum Continue current care as per primary service Seen and examined independently <Dann Montero MD - Last Filed: 03/06/25 14:57> Assessment and Plan: 69-year-old male with underlying alcohol related cirrhosis, ascites, type 2 diabetes, hyperlipidemia, hypertension, anemia of chronic disease. General surgery following for colitis, free air in the abdomen. Patient did have paracentesis x2 which is likely the cause of the intra-abdominal free air. Patient improving overall. Denying pain, nausea, vomiting. Passing gas, he has passed BMS. Tolerating regular diets. On exam the abdomen is soft and benign. Leaking ascitic fluid from the right lower quadrant site of the paracentesis. They have been changing the dressing very frequently. I recommended that they use some skin barrier protection and and 1 of the pink foam dressings for high-output Advance diet as tolerated, Serial abdominal exams <Amari Mcgill PA-C - Last Filed: 03/06/25 07:54> Time Spent With Patient Time: Total time managing care of this patient today ____ minutes. <Amari Mcgill PA-C - Last Filed: 03/06/25 07:54> Quality Stroke Does the patient have a stroke diagnosis?: No <Amari Mcgill PA-C - Last Filed: 03/06/25 07:54> VTE Prior VTE?: No <Amari Mcgill PA-C - Last Filed: 03/06/25 07:54> VTE Risk Level:: Medical - moderate - high <Amari Mcgill PA-C - Last Filed: 03/06/25 07:54> VTE Device Contraindication: N/A - Device Ordered <Amari Mcgill PA-C - Last Filed: 03/06/25 07:54> VTE Drug Contraindication: N/A - Med Ordered <Amari Mcgill PA-C - Last Filed: 03/06/25 07:54>
[2025-03-06] MEDS: Calcium Gluconate/NaCl,Iso-Osm 1 GM/50 ML PLAST..BAG IV (08:03)
[2025-03-06] MEDS: 0.9 % Sodium Chloride Flush 3 ML SYRINGE IVFLUSH ×3 (08:03→23:40)
[2025-03-06] MEDS: Potassium Phosphate/NS 15 MMOL/250 ML PLAST..BAG 62.5 MMOL IV ×2 (08:03→11:43)
[2025-03-06] MEDS: Albumin Human 25 % 50 ML 100 ML IV ×4 (08:03→10:00)
--- NOTE | 2025-03-06 09:07 | PM.CCPN ---
Subjective Subjective Date of Service: 03/06/25 Interval History: no significant overnight events Critical Care Time (minutes): 60 Physical Exam Vital Signs: Vital Signs: Last Vital Signs Temp 97.2 F 03/06/25 08:00 Pulse 117 H 03/06/25 08:00 Resp 18 03/06/25 08:00 BP 103/76 03/06/25 08:00 Pulse Ox 97 03/06/25 08:00 O2 Del Method Room Air 03/06/25 08:00 O2 Flow Rate 97 03/03/25 19:00 Oxygen Flow Rate 2 03/02/25 21:40 BMI result Body Mass Index 29.0 Const: General: cooperative, healthy appearing, comfortable, no acute distress, well developed, alert, awake and Physically active Orientation/consciousness: patient oriented x3 HEENT: Head: Yes normal to inspection, Yes normocephalic and Yes atraumatic Eyes: General: appearance normal, both eyes and all related structures Neck: Neck: Yes normal visual inspection, Yes full ROM, Yes no meningeal signs, Yes trachea midline and Yes supple Chest: Chest palpation & inspection: normal inspection of the chest Resp: Other: no appreciable overt rales, rhonchi, wheezing Effort & Inspection: normal respiratory effort GI: Other: abdomen mildly distended, though soft, compressible Inspection: Yes normal to inspection Palpation (GI): Soft to palpation, not firm, nontender, no guarding and not rigid Skin: General skin exam: no rashes or lesions noted Neuro: General: patient oriented x3, tone normal, moves all extremities, no meningeal signs and no focal motor deficits Extrem: Other: appreciable 2+ pitting edema to bilateral thighs General: Yes normal to inspection, Yes full ROM and Yes capillary refill normal Psych: Appearance: grossly normal Objective Data Labs 03/06/25 05:01 03/06/25 05:01 Labs: Laboratory Results - last 24 hr 03/02/25 03/05/25 03/05/25 20:38 12:09 18:30 WBC RBC Hgb Hct MCV MCH MCHC RDW Plt Count MPV Immature Gran % (Auto) Neut % (Auto) Lymph % (Auto) [place] % (Auto) Eos % (Auto) Baso % (Auto) Lymph # (Auto) [place] # (Auto) Eos # (Auto) Baso # (Auto) Abs Immat Gran (auto) Absolute Neuts (auto) Absolute Nucleated RBC Nucleated RBC % (auto) Sodium Potassium Chloride Carbon Dioxide Anion Gap BUN Creatinine Estim Creat Clear Calc Estimated GFR POC Glucose 133 H 169 H Random Glucose Lactic Acid Calcium Phosphorus Magnesium Albumin TSH Peritoneal pH Cancelled Peritoneal Tot Protein Cancelled Peritoneal Albumin Cancelled Peritoneal LDH Cancelled Peritoneal Glucose Cancelled Peritoneal Amylase Cancelled Random Vancomycin 03/05/25 03/06/25 03/06/25 23:45 05:01 05:01 WBC 8.6 RBC 3.03 L Hgb 9.7 L Hct 28.6 L MCV 94.4 MCH 32.0 MCHC 33.9 RDW 14.2 Plt Count 108 L MPV 9.8 Immature Gran % (Auto) 0.7 H Neut % (Auto) 72.8 Lymph % (Auto) 15.5 L [place] % (Auto) 8.6 Eos % (Auto) 2.2 Baso % (Auto) 0.2 Lymph # (Auto) 1.3 [place] # (Auto) 0.7 Eos # (Auto) 0.2 Baso # (Auto) 0.0 Abs Immat Gran (auto) 0.06 H Absolute Neuts (auto) 6.3 Absolute Nucleated RBC 0.000 Nucleated RBC % (auto) 0.0 Sodium 137 Potassium 3.0 L Chloride 101 Carbon Dioxide 28 Anion Gap 11 L BUN 12 Creatinine 0.78 0.79 Estim Creat Clear Calc 92.6 Estimated GFR POC Glucose 127 H Random Glucose Lactic Acid Calcium Phosphorus Magnesium Albumin TSH Peritoneal pH Peritoneal Tot Protein Peritoneal Albumin Peritoneal LDH Peritoneal Glucose Peritoneal Amylase Random Vancomycin 03/06/25 03/06/25 03/06/25 05:01 05:01 05:37 WBC RBC Hgb Hct MCV MCH MCHC RDW Plt Count MPV Immature Gran % (Auto) Neut % (Auto) Lymph % (Auto) [place] % (Auto) Eos % (Auto) Baso % (Auto) Lymph # (Auto) [place] # (Auto) Eos # (Auto) Baso # (Auto) Abs Immat Gran (auto) Absolute Neuts (auto) Absolute Nucleated RBC Nucleated RBC % (auto) Sodium Potassium Chloride Carbon Dioxide Anion Gap BUN Creatinine Estim Creat Clear Calc 91.4 Estimated GFR > 60 > 60 POC Glucose Random Glucose 162 H Lactic Acid 1.6 Calcium 7.6 L Phosphorus 2.3 L Magnesium 1.4 L* Albumin 2.8 L TSH 3.71 Peritoneal pH Peritoneal Tot Protein Peritoneal Albumin Peritoneal LDH Peritoneal Glucose Peritoneal Amylase Random Vancomycin 11.1 L Microbiology Microbiology Results: Microbiology 03/02/25 19:11 Blood - Venous Blood Culture - Final Actinomyces species 03/02/25 18:51 Blood - Venous Blood Culture - Final Actinomyces species 03/02/25 20:38 Abdominal Fluid Gram Stain - Final 03/02/25 20:38 Abdominal Fluid Routine Culture - Final No growth after 2 days 03/02/25 20:38 Abdominal Fluid Anaerobic Culture - Preliminary No growth to date. 03/02/25 23:06 Urine Catheterized Urine Culture - Final No growth. Progress Note: A&P Assessment and plan (1) SBP (spontaneous bacterial peritonitis): Status: Acute (2) Septic shock: Status: Acute Plan Patient?is a 69 Y M w/ hypertension, hyperlipidemia, diabetes mellitus, alcohol misuse c/b cirrhosis, ascites, presenting to ED from [facility] facility on 03/02 w/ abdominal pain, found to be febrile, hypotensive; ED work-up suggestive of SBP N: no acute issues CV: hypotension, possibly d/t vasodilation in setting of cirrhosis; norepinephrine gtt, initiated on midodrine R: no acute issues GI: cirrhosis c/b SBP; regular diet : no acute issues; to monitor renal indices/electrolytes H: no acute issues; chemical DVT prophylaxis ID: SBP, on zosyn, BCx 03/02 w/ actinomyces E: to monitor hypo-/hyper-glycemia P: no acute issues S: daily updates given to [facility] Stroke Does the patient have a stroke diagnosis?: No VTE Prior VTE?: No VTE Risk Level:: Medical - moderate - high VTE Device Contraindication: N/A - Device Ordered VTE Drug Contraindication: N/A - Med Ordered
[2025-03-06 11:50] LABS: Glucose, Whole Blood 140 mg/dL (60-115)
[2025-03-06 11:51] LABS: Glucose, Whole Blood 121 mg/dL (60-115)
[2025-03-06 17:15] LABS: Glucose, Whole Blood 114 mg/dL (60-115)
[2025-03-06] MEDS: Throat Lozenge, Medicated LOZENGE 1 LOZENGE MUCOUS MEM (20:10)
[2025-03-07] VITALS (16 sets, daily range): BP systolic 96–162; BP diastolic 55–84; PULSE 57–85; RESP 12–20; TEMP 36.3–36.8; O2SAT 88–99; BMI 27.1
[2025-03-07 00:27] LABS: Glucose, Whole Blood 98 mg/dL (60-115)
[2025-03-07 05:31] LABS: MANUAL DIFF FLAG NO
[2025-03-07 05:35] LABS: Hematocrit 32.4 % (42.0-52.0); Hemoglobin 10.8 g/dl (14.0-18.0); Imm Gran Abs Auto 0.07 X10*3/uL (0.00-0.03); Imm Gran Pct Auto 0.8 % (0.0-0.4); Lymphocytes Absolute Auto 1.8 X10*3/uL (1.2-4.9); Mean Corpuscular HGB Conc 33.3 g/dl (31.0-36.0); Mean Corpuscular Hemoglobin 31.4 pg (27.0-33.0); Mean Corpuscular Volume 94.2 fL (80.0-98.0); NRBC Abs Auto 0.000 X10*3/uL (0.0-0.012); NRBC Pct Auto 0.0 /100WBC (0.0-0.2); Platelet Count 123 X10*3/uL (160-400); Red Blood Count 3.44 X10*6/uL (4.60-5.80); White Blood Count 9.1 X10*3/uL (4.8-10.8)
[2025-03-07 06:06] LABS: Anion Gap 11 (12-20); Blood Urea Nitrogen 10 mg/dL (9-16); Calcium 8.5 mg/dL (8.4-10.2); Carbon Dioxide 33 mmol/L (22-29); Chloride 97 mmol/L (96-108); Creatinine Clr Calc Pharmacy 111.1; Estimated Glomerular Filt Rate > 60; Magnesium 1.3 mg/dL (1.6-2.6); Potassium 3.3 mmol/L (3.3-5.1); Sodium 138 mmol/L (135-145)
[2025-03-07] MEDS: Potassium Chloride Packet 20 MEQ PACKET 40 MEQ PO (06:29)
[2025-03-07] MEDS: Magnesium Sulfate/H2O 2 GM/50 ML PIGGYBACK IV (06:29)
[2025-03-07 06:30] LABS: Glucose, Whole Blood 163 mg/dL (60-115)
--- NOTE | 2025-03-07 07:42 | PC.NURSE ---
Assumed care of pt at 1900. Pt still requiring close monitoring in ICU. Pt on room air. Off pressors currently. Pt medicated per MAR. Able to make needs known. See flowsheets and worklist tasks for more info. Plan of care continues.
[2025-03-07] MEDS: 0.9 % Sodium Chloride Flush 3 ML SYRINGE IVFLUSH ×2 (08:23→16:29)
--- NOTE | 2025-03-07 09:37 | PM.CCPN ---
Subjective Subjective Date of Service: 03/07/25 Interval History: no significant overnight events; remains off vasopressors Critical Care Time (minutes): 0 Physical Exam Vital Signs: Vital Signs: Last Vital Signs Temp 98.1 F 03/07/25 08:00 Pulse 79 03/07/25 08:00 Resp 18 03/07/25 08:00 BP 96/63 03/07/25 08:25 Pulse Ox 95 03/07/25 08:00 O2 Del Method Room Air 03/07/25 08:00 O2 Flow Rate 97 03/03/25 19:00 Oxygen Flow Rate 2 03/02/25 21:40 BMI result Body Mass Index 27.1 Const: General: cooperative, healthy appearing, comfortable, no acute distress, well developed, alert, awake and Physically active Orientation/consciousness: patient oriented x3 HEENT: Head: Yes normal to inspection, Yes normocephalic and Yes atraumatic Eyes: General: appearance normal, both eyes and all related structures Neck: Neck: Yes normal visual inspection, Yes full ROM, Yes no meningeal signs, Yes trachea midline and Yes supple Chest: Chest palpation & inspection: normal inspection of the chest Resp: Other: no appreciable overt rales, rhonchi, wheezing Effort & Inspection: normal respiratory effort Cardio: Rate: regular rate Rhythm: regular rhythm GI: Inspection: Yes normal to inspection, No Abdominal wall edema and No distended Palpation (GI): Soft to palpation, not firm, nontender, no guarding and not rigid Skin: General skin exam: no rashes or lesions noted Neuro: General: patient oriented x3, tone normal, moves all extremities, no meningeal signs and no focal motor deficits Extrem: General: Yes normal to inspection, Yes full ROM, Yes capillary refill normal and Yes no clubbing, cyanosis or edema Psych: Appearance: grossly normal Objective Data Labs 03/07/25 04:45 03/07/25 04:45 Labs: Laboratory Results - last 24 hr 03/06/25 03/06/25 03/06/25 06:22 11:38 17:11 WBC RBC Hgb Hct MCV MCH MCHC RDW Plt Count MPV Immature Gran % (Auto) Neut % (Auto) Lymph % (Auto) [place] % (Auto) Eos % (Auto) Baso % (Auto) Lymph # (Auto) [place] # (Auto) Eos # (Auto) Baso # (Auto) Abs Immat Gran (auto) Absolute Neuts (auto) Absolute Nucleated RBC Nucleated RBC % (auto) Sodium Potassium Chloride Carbon Dioxide Anion Gap BUN Creatinine Estim Creat Clear Calc Estimated GFR POC Glucose 140 H 121 H 114 Random Glucose Calcium Phosphorus Magnesium 03/07/25 03/07/25 03/07/25 00:21 04:45 06:26 WBC 9.1 RBC 3.44 L Hgb 10.8 L Hct 32.4 L MCV 94.2 MCH 31.4 MCHC 33.3 RDW 14.0 Plt Count 123 L MPV 9.9 Immature Gran % (Auto) 0.8 H Neut % (Auto) 66.1 Lymph % (Auto) 19.9 L [place] % (Auto) 10.0 Eos % (Auto) 2.5 Baso % (Auto) 0.7 Lymph # (Auto) 1.8 [place] # (Auto) 0.9 Eos # (Auto) 0.2 Baso # (Auto) 0.1 Abs Immat Gran (auto) 0.07 H Absolute Neuts (auto) 6.1 Absolute Nucleated RBC 0.000 Nucleated RBC % (auto) 0.0 Sodium 138 Potassium 3.3 Chloride 97 Carbon Dioxide 33 H Anion Gap 11 L BUN 10 Creatinine 0.65 Estim Creat Clear Calc 111.1 Estimated GFR > 60 POC Glucose 98 163 H Random Glucose 116 H Calcium 8.5 D Phosphorus 3.0 Magnesium 1.3 L* Microbiology Microbiology Results: Microbiology 03/02/25 20:38 Abdominal Fluid Gram Stain - Final 03/02/25 20:38 Abdominal Fluid Routine Culture - Final No growth after 2 days 03/02/25 20:38 Abdominal Fluid Anaerobic Culture - Preliminary No growth to date. 03/02/25 19:11 Blood - Venous Blood Culture - Final Actinomyces species 03/02/25 18:51 Blood - Venous Blood Culture - Final Actinomyces species 03/02/25 23:06 Urine Catheterized Urine Culture - Final No growth. Progress Note: A&P Assessment and plan (1) SBP (spontaneous bacterial peritonitis): Status: Acute Plan Patient?is a 69 Y M w/ hypertension, hyperlipidemia, diabetes mellitus, alcohol misuse c/b cirrhosis, ascites, presenting to ED from [facility] on 03/[facility] w/ abdominal pain, found to be febrile, hypotensive; ED work-up suggestive of SBP N: no acute issues CV: hypotension w/o overt signs of shock, possibly d/t vasodilation in setting of cirrhosis; s/p norepinephrine gtt, initiated on midodrine R: no acute issues GI: cirrhosis c/b SBP; regular diet : no acute issues; to monitor renal indices/electrolytes H: no acute issues; chemical DVT prophylaxis ID: SBP, on zosyn, BCx 03/02 w/ actinomyces E: to monitor hypo-/hyper-glycemia P: no acute issues S: daily updates given to sister Quality Stroke Does the patient have a stroke diagnosis?: No VTE Prior VTE?: No VTE Risk Level:: Medical - moderate - high VTE Device Contraindication: N/A - Device Ordered VTE Drug Contraindication: N/A - Med Ordered
--- NOTE | 2025-03-07 09:43 | P.PNGS_ITS ---
Subjective Subjective Date of Service: 03/07/25 <Amari Mcgill PA-C - Last Filed: 03/07/25 09:48> 03/07/25 <Dann Montero MD - Last Filed: 03/07/25 14:26> Interval history: Doing well, no new complaints. Denies abdominal pain. Tolerating diet < Amari Mcgill PA-C - Last Filed: 03/07/25 09:48> Physical Exam 2 Vital Signs: Vital Signs: Last Vital Signs Temp 98.1 F 03/07/25 08:00 Pulse 79 03/07/25 08:00 Resp 18 03/07/25 08:00 BP 96/63 03/07/25 08:25 Pulse Ox 95 03/07/25 08:00 O2 Del Method Room Air 03/07/25 08:00 O2 Flow Rate 97 03/03/25 19:00 Oxygen Flow Rate 2 03/02/25 21:40 BMI result Body Mass Index 27.1 <Amari Mcgill PA-C - Last Filed: 03/07/25 09:48> Const: General: comfortable and no acute distress <Amari Mcgill PA-C - Last Filed: 03/07/25 09:48> Orientation/consciousness: patient oriented x3 <MICHAEL Mendiola Last Filed: 03/07/25 09:48> GI: Other: RLQ paracentesis site is open, about 0.6 cm, draining ascitic fluid. Dressing in place, saturated yellow straw like fluid <Amari Mcgill PA-C - Last Filed: 03/07/25 09:48> Inspection: No distended <Amari Mcgill PA-C - Last Filed: 03/07/25 09:48> Palpation (GI): Soft to palpation, nontender and no guarding <Amari Mcgill PA-C - Last Filed: 03/07/25 09:48> Neuro: General: patient oriented x3 <MICHAEL Mendiola Last Filed: 03/07/25 09:48> Objective Data Active Medications Benzocaine (Throat Lozenge, Medicated Lozenge) 1 lozenge MUCOUS MEM Q2H PRN PRN Reason: Sore Throat Last Admin: 03/06/25 20:10 Dose: 1 lozenge Documented By: KWASI Dextrose (Dextrose 50 % 25 Gm/50 Ml Syringe) 25 gm IVPUSH Q15M PRN; Protocol PRN Reason: per Hypoglycemia Standing Ord. Furosemide (Furosemide 40 Mg Tablet) 40 mg PO BID@0900,1800 [facility]; Protocol Last Admin: 03/07/25 08:24 Dose: 40 mg Documented By: ROSEANN Glucose (Glucose Gel 15 Gm Gel..Gram.) 15 gm PO Q15M PRN; Protocol PRN Reason: per Hypoglycemia Standing Ord. Piperacillin Sod/Tazobactam (Sod 4.5 gm/ Sodium Chloride) 100 mls @ 200 mls/hr IV Q6H [facility] Last Infusion: 03/07/25 06:50 Dose: Infused Documented By: KWASI Insulin Human Lispro (Insulin Lispro 100 Unit/Ml 3 Ml Vial) 0 unit SUBCUT Q6H [facility]; Protocol Last Admin: 03/07/25 07:28 Dose: 2 unit Documented By: KWASI Lactulose (Lactulose 20 Gm/30 Ml Solution) 10 gm PO DAILY [facility] Last Admin: 03/07/25 08:23 Dose: 10 gm Documented By: ROSEANN Midodrine (Midodrine Hcl 5 Mg Tablet) 5 mg PO TID [facility] Nystatin (Nystatin Powder 15 Gm Bottle) 1 appl TOPICAL BID [facility]; Protocol Last Admin: 03/07/25 08:25 Dose: 1 appl Documented By: ROSEANN Sodium Chloride (0.9 % Sodium Chloride Flush 3 Ml Syringe) 3 ml IVFLUSH QSHIFT [facility] Last Admin: 03/07/25 08:23 Dose: 3 ml Documented By: ROSEANN Spironolactone (Spironolactone 25 Mg Tablet) 25 mg PO DAILY [facility]; Protocol Last Admin: 03/07/25 08:24 Dose: 25 mg Documented By: ROSEANN <Amari Mcgill PA-C - Last Filed: 03/07/25 09:48> Labs CBC & Chem 7: 03/07/25 04:45 03/07/25 04:45 <Amari cMgill PA-C - Last Filed: 03/07/25 09:48> Labs: Laboratory Results - last 24 hr 03/06/25 03/06/25 03/06/25 06:22 11:38 17:11 MCV MCH MCHC RDW Plt Count MPV Immature Gran % (Auto) Neut % (Auto) Lymph % (Auto) [place] % (Auto) Eos % (Auto) Baso % (Auto) Lymph # (Auto) [place] # (Auto) Eos # (Auto) Baso # (Auto) Abs Immat Gran (auto) Absolute Neuts (auto) Absolute Nucleated RBC Nucleated RBC % (auto) Anion Gap Estim Creat Clear Calc Estimated GFR POC Glucose 140 H 121 H 114 Random Glucose Calcium Phosphorus Magnesium 03/07/25 03/07/25 03/07/25 00:21 04:45 06:26 MCV 94.2 MCH 31.4 MCHC 33.3 RDW 14.0 Plt Count 123 L MPV 9.9 Immature Gran % (Auto) 0.8 H Neut % (Auto) 66.1 Lymph % (Auto) 19.9 L [place] % (Auto) 10.0 Eos % (Auto) 2.5 Baso % (Auto) 0.7 Lymph # (Auto) 1.8 [place] # (Auto) 0.9 Eos # (Auto) 0.2 Baso # (Auto) 0.1 Abs Immat Gran (auto) 0.07 H Absolute Neuts (auto) 6.1 Absolute Nucleated RBC 0.000 Nucleated RBC % (auto) 0.0 Anion Gap 11 L Estim Creat Clear Calc 111.1 Estimated GFR > 60 POC Glucose 98 163 H Random Glucose 116 H Calcium 8.5 D Phosphorus 3.0 Magnesium 1.3 L* <Amari Mcgill PA-C - Last Filed: 03/07/25 09:48> Microbiology Microbiology Results: Microbiology 03/02/25 20:38 Gram Stain - Final Abdominal Fluid Routine Culture - Final No growth after 2 days Anaerobic Culture - Preliminary No growth to date. <Amari Mcgill PA-C - Last Filed: 03/07/25 09:48> Procedures Date of Service Date of Service: 03/07/25 <Amari Mcgill PA-C - Last Filed: 03/07/25 09:48> 03/07/25 <Dann Montero MD - Last Filed: 03/07/25 14:26> Progress Note: A&P Assessment and plan (1) Colitis: Status: Acute <Amari Mcgill PA-C - Last Filed: 03/07/25 09:48> Assessment and Plan: Continues to do well Feels well overall Denies abdominal pain Tolerating diet Reconsult as needed Seen and examined independently <Dann Montero MD - Last Filed: 03/07/25 14:26> Assessment and Plan: 69-year-old male with underlying alcohol related cirrhosis, ascites, type 2 diabetes, hyperlipidemia, hypertension, anemia of chronic disease. ED workup suggestive of SBP. General surgery following for colitis, free air in the abdomen. Patient did have paracentesis x2 which is likely the cause of the intra-abdominal free air. Patient improving overall. Denying pain, nausea, vomiting. Passing gas, he has passed BMS. Tolerating regular diets. On exam the abdomen is soft and benign. Leaking ascitic fluid from the right lower quadrant site of the paracentesis. Saturating dressings, would recommend continuing to change as needed, at least daily. Continue with skin barrier protection with the dressing change. At this point no surgical intervention planned, general surgery will sign off, please re-consult as needed. Diet as tolerated Serial abdominal exams <Amari Mcgill PA-C - Last Filed: 03/07/25 09:48> Time Spent With Patient Time: Total time managing care of this patient today ____ minutes. <Amari Mcgill PA-C - Last Filed: 03/07/25 09:48> Quality Stroke Does the patient have a stroke diagnosis?: No <Amari Mcgill PA-C - Last Filed: 03/07/25 09:48> VTE Prior VTE?: No <Amari Mcgill PA-C - Last Filed: 03/07/25 09:48> VTE Risk Level:: Medical - moderate - high <Amari Mcgill PA-C - Last Filed: 03/07/25 09:48> VTE Device Contraindication: N/A - Device Ordered <Amari Mcgill PA-C - Last Filed: 03/07/25 09:48> VTE Drug Contraindication: N/A - Med Ordered <Amari Mcgill PA-C - Last Filed: 03/07/25 09:48>
[2025-03-07] MEDS: Throat Lozenge, Medicated LOZENGE 1 LOZENGE MUCOUS MEM ×2 (10:21→20:49)
--- NOTE | 2025-03-07 11:26 | PC.NURSE ---
Patient has drainage from R pucture site. Dressing changed. No new signs of infection noted. Patient off pressors since 03/06; order for transfer off unit in. Patient worked with physical therapy; 2 assist stand pivot to chair
[2025-03-07 11:43] LABS: Glucose, Whole Blood 111 mg/dL (60-115)
--- NOTE | 2025-03-07 15:21 | P.CNID_ITS ---
History of Present Illness Data of Consult Service Date: 03/07/25 Requesting physician: Hilaria Burdick Primary Care Provider: Abdiel Lozano MD HPI Reason for consult: actinomyces bacteremia,SBP concern He presents with weakness,fever to 102.8 and tachycardia to 117. He has ascites and tap shows ANC 250 range. 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 He has RUL infiltrate posteriorly. He has HTN,DM,alcohol use disorder and cirrhosis. He was discharged from [facility] on 02/27. Review of Systems 2 Review of Systems: Yes all other systems are reviewed and are negative [facility] [place] Past Medical History Medical History (Updated 03/07/25 @ 15:28 by Ernestina Santacruz MD) Actinomycosis Family History Family history: reviewed and not pertinent Social History Social History Housing: Other Housing Other:: [facility] Alcohol intake: former Patient Tobacco Use Status: Former Tobacco user Smoked in Last 30 Days: No Use of substances other than those prescribed or required for medical reasons: No Currently Displaying Signs/Symptoms of Drug Intoxication Withdrawal: No Have you been hit, kicked, punched, or otherwise hurt by someone within the past year? If so, by whom?: No Do you feel safe in your current relationship?: No Current Relationship Is there a partner from a previous relationship who is making you feel unsafe now?: No Are you made to feel afraid or neglected: No Advance Directives: Yes Advance Directives on File: Yes Advance Directives Date on File: 03/02/25 Do you have a plan to hurt others: No Plan Recently lost weight without trying: Unsure Eating poorly because of decreased appetite: No Nutrition Risks: No Nutritional Risk Poor oral hygiene: Yes service: No Meds Allergies Allergy/AdvReac Type Severity Reaction Status Date / Time No Known Allergies Allergy Verified 03/02/25 18:37 Active Medications: Current Medications Benzocaine (Throat Lozenge, Medicated Lozenge) 1 lozenge MUCOUS MEM Q2H PRN PRN Reason: Sore Throat Last Admin: 03/07/25 10:21 Dose: 1 lozenge Dextrose (Dextrose 50 % 25 Gm/50 Ml Syringe) 25 gm IVPUSH Q15M PRN; Protocol PRN Reason: per Hypoglycemia Standing Ord. Furosemide (Furosemide 40 Mg Tablet) 40 mg PO BID@0900,1800 [facility]; Protocol Last Admin: 03/07/25 08:24 Dose: 40 mg Glucose (Glucose Gel 15 Gm Gel..Gram.) 15 gm PO Q15M PRN; Protocol PRN Reason: per Hypoglycemia Standing Ord. Piperacillin Sod/Tazobactam (Sod 4.5 gm/ Sodium Chloride) 100 mls @ 200 mls/hr IV Q6H [facility] Last Infusion: 03/07/25 10:51 Dose: Infused Insulin Human Lispro (Insulin Lispro 100 Unit/Ml 3 Ml Vial) 0 unit SUBCUT Q6H [facility]; Protocol Last Admin: 03/07/25 12:17 Dose: Not Given Lactulose (Lactulose 20 Gm/30 Ml Solution) 10 gm PO DAILY [facility] Last Admin: 03/07/25 08:23 Dose: 10 gm Midodrine (Midodrine Hcl 5 Mg Tablet) 5 mg PO TID [facility] Last Admin: 03/07/25 14:01 Dose: 5 mg Nystatin (Nystatin Powder 15 Gm Bottle) 1 appl TOPICAL BID [facility]; Protocol Last Admin: 03/07/25 08:25 Dose: 1 appl Sodium Chloride (0.9 % Sodium Chloride Flush 3 Ml Syringe) 3 ml IVFLUSH QSHIFT [facility] Last Admin: 03/07/25 08:23 Dose: 3 ml Spironolactone (Spironolactone 25 Mg Tablet) 25 mg PO DAILY [facility]; Protocol Last Admin: 03/07/25 08:24 Dose: 25 mg Home Medications ?Medication ?Instructions ?Recorded ?Confirmed ?Last Taken ?Type bisacodyl 10 mg rectal suppository 10 mg RI DAILY PRN Constipation 03/02/25 03/02/25 Unknown History cetylpyridinium chloride 1 cecelia mucous membrane Q3H RI N Sore 03/02/25 03/02/25 Unknown History Throat folic acid 1 mg tablet 1 mg PO DAILY 03/02/2503/02 Unknown History furosemide 20 mg tablet 30 mg PO DAILY 03/02/2508/22 Unknown History ibuprofen 600 mg tablet 600 mg PO BID 03/02/2503/02 Unknown History lactulose 10 gram/15 mL oral 15 ml PO DAILY 03/02/25 1 Unknown History solution magnesium hydroxide 400 mg/5 mL 30 ml PO DAILY PRN Con stipation 03/02/25 03/02/25 Unknown History oral suspension (Milk of Magnesia) methyl salicylate-menthol topical 1 appl topical BID P RN knee pain 03/02/25 03/02/25 Unknown History cream naltrexone 50 mg tablet 25 mg PO DAILY 03/02/2508/22 Unknown History sodium phosphates 19 gram-7 118 ml RI DAILY PRN Consti pation 03/02/25 03/02/25 Unknown History gram/118 mL enema (Fleet Enema) acetaminophen 325 mg tablet 650 mg PO Q4H PRN pain or fever 03/03/25 03/03/25 Unknown History >101 acetaminophen 650 mg rectal 650 mg RI Q4H PRN pain or fever 03/03/25 03/03/25 Unknown History suppository >101 nicotine 7 mg/24 hr daily 1 patch transdermal Q24H 09/2203/03/25 Unknown History transdermal patch pyridoxine (vitamin B6) 50 mg 50 mg PO DAILY 03/03/25 03/03/25 Unknown History tablet sennosides 8.6 mg tablet (senna) 17.2 mg PO DAILY 09/2203/03/25 Unknown History spironolactone 25 mg tablet 25 mg PO DAILY 03/03/25 Unknown History thiamine HCl (vitamin B1) 100 mg 100 mg PO BID 5 03/03/25 Unknown History tablet Physical Exam 2 Vital Signs: Vital Signs: Last Vital Signs Temp 97.3 F 03/07/25 15:10 Pulse 71 03/07/25 15:10 Resp 20 03/07/25 15:10 BP 162/84 H 03/07/25 15:10 Pulse Ox 91 L 03/07/25 15:10 O2 Del Method Room Air 03/07/25 15:10 O2 Flow Rate 97 03/03/25 19:00 Oxygen Flow Rate 2 03/02/25 21:40 BMI result Body Mass Index 27.1 Const: General: cooperative HEENT: Other: poor dentition upper and lower teeth Head: Yes normal to inspection Face and sinus: Yes normal facial exam Mouth: Normal oral and palatal mucosa present Teeth and gingiva: dentition normal Eyes: General: appearance normal, both eyes and all related structures P upils: Equal, round and reactive pupils present Resp: Other: rales right upper lung Cardio: Rate: regular rate Rhythm: regular rhythm GI: Other: ascites Palpation (GI): Soft to palpation and nontender : General: Yes no CVA tenderness Back/Spine/Pelvis: Back: no CVA tenderness Skin: General skin exam: no rashes or lesions noted Neuro: General: moves all extremities Cranial nerves: Yes Equal, round and reactive pupils present Extrem: General: Yes normal to inspection Psych: Appearance: grossly normal Results Labs 03/07/25 04:45 03/07/25 04:45 Labs: Short CBC 03/07/25 Range/Units 04:45 WBC 9.1 (4.8-10.8) X10*3/uL Hgb 10.8 L (14.0-18.0) g/dl Hct 32.4 L (42.0-52.0) % Plt Count 123 L (160-400) X10*3/uL BMP 03/07/25 04:45 Sodium 138 Potassium 3.3 Chloride 97 Carbon Dioxide 33 H BUN 10 Creatinine 0.65 Calcium 8.5 D Microbiology Microbiology Results: Microbiology 03/02/25 20:38 Abdominal Fluid Gram Stain - Final 03/02/25 20:38 Abdominal Fluid Routine Culture - Final No growth after 2 days 03/02/25 20:38 Abdominal Fluid Anaerobic Culture - Final NO GROWTH AFTER 5 DAYS 03/02/25 19:11 Blood - Venous Blood Culture - Final Actinomyces species 03/02/25 18:51 Blood - Venous Blood Culture - Final Actinomyces species 03/02/25 23:06 Urine Catheterized Urine Culture - Final No growth. Assessment and Plan (1) Actinomycosis: Status: Acute (2) SBP (spontaneous bacterial peritonitis): Status: Acute (3) Septic shock: Status: Acute Plan Actinomycosis likely real This is likely due to poor dentition leading to aspiration type dense pneumonia. This bacteria similar to ELIZABETH and nocardia may take long time to resolve,sometimes months. Also,this may be possible organism as well as gram negative. Continue piperacillin/tazobactam for now until improving. This is a sensitive organism to many antibiotics so would favor IV antibiotics until dense infiltrate resolving such as IV Ertapenem 1 g daily through PICC line for 14 days and then po Doxycycline 100 mg bid for three to six months. See dentist resolve underlying infection gums and teeth/dentures if needed. HIV test. Will see as outpatient.
[2025-03-07 16:30] LABS: Glucose, Whole Blood 110 mg/dL (60-115)
[2025-03-07 20:30] LABS: Glucose, Whole Blood 161 mg/dL (60-115)
[2025-03-08 04:00] VITALS: BP 102/58; PULSE 59; RESP 18; TEMP 36.4; O2SAT 95
[2025-03-08 06:00] VITALS: BMI 26.3
[2025-03-08 07:27] LABS: Glucose, Whole Blood 100 mg/dL (60-115)
[2025-03-08 07:41] LABS: HIV Num 1 0.07 S/CO (0.00-0.99)
[2025-03-08 07:45] VITALS: BP 118/61; PULSE 53; RESP 17; TEMP 36.6; O2SAT 95
[2025-03-08] MEDS: Nicotine 7 MG PATCH.TD24 TRANSDERMA (08:43)
[2025-03-08 09:05] LABS: MANUAL DIFF FLAG NO
[2025-03-08 09:09] LABS: Hematocrit 32.5 % (42.0-52.0); Hemoglobin 11.3 g/dl (14.0-18.0); Imm Gran Abs Auto 0.25 X10*3/uL (0.00-0.03); Imm Gran Pct Auto 2.4 % (0.0-0.4); Lymphocytes Absolute Auto 1.8 X10*3/uL (1.2-4.9); Mean Corpuscular HGB Conc 34.8 g/dl (31.0-36.0); Mean Corpuscular Hemoglobin 32.7 pg (27.0-33.0); Mean Corpuscular Volume 93.9 fL (80.0-98.0); NRBC Abs Auto 0.000 X10*3/uL (0.0-0.012); NRBC Pct Auto 0.0 /100WBC (0.0-0.2); Platelet Count 139 X10*3/uL (160-400); Red Blood Count 3.46 X10*6/uL (4.60-5.80); White Blood Count 10.5 X10*3/uL (4.8-10.8)
[2025-03-08 09:23] LABS: Blood Urea Nitrogen 12 mg/dL (9-16); Calcium 8.6 mg/dL (8.4-10.2); Creatinine Clr Calc Pharmacy 82.5; Estimated Glomerular Filt Rate > 60; INTERNATIONAL NORM RATIO 1.6 (0.9-1.1); Magnesium 1.5 mg/dL (1.6-2.6); Prothrombin Time 18.6 SEC (10.9-12.4)
[2025-03-08 09:31] LABS: Anion Gap 13 (12-20); Carbon Dioxide 29 mmol/L (22-29); Chloride 98 mmol/L (96-108); Potassium 3.9 mmol/L (3.3-5.1); Sodium 136 mmol/L (135-145)
--- NOTE | 2025-03-08 09:49 | HO.WOUND ---
Wound Consult: Follow up 69yr old?male admitted to [facility] [place] 03[place]02/25 - See progress notes and H&P for detailed history.? Wound consult placed for buttocks.? Patient agreeable to assessment and photo documentation.? Right Elbow 03/05/25 right elbow 03/08/25 - scab has fallen off, intact pink/purple blanching skin - no dressing needed Right Foot 03/05/25 Right foot 03/08/25 - small area of intact blanchable redness remains unchanged - no dressing needed Left Foot 03/05/25 left foot 03/08/25 - resurfaced - no further dressing needed Right Temporal side 03/05/25 Right temporal side 03/08/25 - resurfaced bruising noted - no dressing needed Buttocks 03/08/25- noted with small area of irregularly shaped intact brown/purple discoloration - not over bony prominence - unclear etiology will follow for evolution. Recommendations: 1. Turn and Reposition every 2 hours and as needed for patient comfort.? Use pillows or wedges to support off loading positions. 2. Off Load all bony prominences with use of pillows and heel boots if needed.? Apply Preventative foams where needed. ? 3. Monitor for incontinence and moisture control, use barrier creams when needed for prevention and treatment. 4. Provide adequate and supplemental nutrition.? 5.Continue low air loss mattress. 6. When applicable maintain blood glucose levels per Providers order. Buttocks: Off Load Pressure with Q2 hr turns and use of pillows - Cleanse with PH balance spray or wipes, pat dry. ?Apply thin layer of barrier cream to affected area. Apply twice daily and Reapply thin layer PRN after each episode of incontinence. Re-consult wound care Nurse for wound deterioration or wound changes.
[2025-03-08 11:08] LABS: Glucose, Whole Blood 123 mg/dL (60-115)
--- NOTE | 2025-03-08 11:28 | HO.PM.IMPN ---
Subjective Subjective Date of Service: 03/08/25 Interval History: feels well; no dyspnea; no abd pain; no fever; paracentesis site with slow clear fluid leak Review of Systems Review of Systems: Yes all other systems are reviewed and are negative Physical Exam Vital Signs: Vital Signs: Last Vital Signs Temp 97.8 F 03/08/25 07:45 Pulse 53 03/08/25 07:45 Resp 17 03/08/25 07:45 BP 118/61 03/08/25 07:45 Pulse Ox 95 03/08/25 07:45 O2 Del Method Room Air 03/08/25 07:45 O2 Flow Rate 97 03/03/25 19:00 Oxygen Flow Rate 2 03/02/25 21:40 BMI result Body Mass Index 26.3 Gen: in no acute distress HEENT: sclera anicteric, moist mucus membranes Neck: supple Lungs: clear to auscultation bilaterally Heart: regular rate and rhythm, no murmurs Abd: soft but distended, slow leak of clear ascites RLQ, nontender Ext: 1+ edema Skin: warm/well-perfused Neuro: alert and oriented x3, no focal findings Psych: appropriate affect Objective Data Active Medications Benzocaine (Throat Lozenge, Medicated Lozenge) 1 lozenge MUCOUS MEM Q2H PRN PRN Reason: Sore Throat Last Admin: 03/07/25 20:49 Dose: 1 lozenge Documented By: ARTI Dextrose (Dextrose 50 % 25 Gm/50 Ml Syringe) 25 gm IVPUSH Q15M PRN; Protocol PRN Reason: per Hypoglycemia Standing Ord. Folic Acid (Folic Acid 1 Mg Tablet) 1 mg PO DAILY [facility] Last Admin: 03/08/25 08:44 Dose: 1 mg Documented By: MEMO Furosemide (Furosemide 40 Mg Tablet) 40 mg PO BID@0900,1800 [facility]; Protocol Last Admin: 03/08/25 08:44 Dose: 40 mg Documented By: MEMO Glucose (Glucose Gel 15 Gm Gel..Gram.) 15 gm PO Q15M PRN; Protocol PRN Reason: per Hypoglycemia Standing Ord. Piperacillin Sod/Tazobactam (Sod 4.5 gm/ Sodium Chloride) 100 mls @ 200 mls/hr IV Q6H [facility] Last Infusion: 03/08/25 11:21 Dose: Infused Documented By: MEMO Insulin Human Lispro (Insulin Lispro 100 Unit/Ml 3 Ml Vial) 0 unit SUBCUT QIDACHS [facility]; Protocol Last Admin: 03/08/25 11:20 Dose: Not Given Documented By: MEMO Non-Admin Reason: low poc Lactulose (Lactulose 20 Gm/30 Ml Solution) 10 gm PO DAILY [facility] Last Admin: 03/08/25 08:44 Dose: Not Given Documented By: MEMO Non-Admin Reason: Patient Refused Midodrine (Midodrine Hcl 5 Mg Tablet) 5 mg PO TID [facility] Last Admin: 03/08/25 08:43 Dose: 5 mg Documented By: MEMO Naltrexone HCl (Naltrexone Hcl 50 Mg Tablet) 25 mg PO DAILY [facility] Last Admin: 03/08/25 08:44 Dose: 25 mg Documented By: MEMO Nicotine (Nicotine 7 Mg Patch.Td24) 7 mg TRANSDERMA Q24H [facility] Last Admin: 03/08/25 08:43 Dose: 7 mg Documented By: MEMO Nystatin (Nystatin Powder 15 Gm Bottle) 1 appl TOPICAL BID [facility]; Protocol Last Admin: 03/08/25 08:44 Dose: 1 appl Documented By: MEMO Pyridoxine HCl (Pyridoxine Hcl (Vitamin B6) 50 Mg Tablet) 50 mg PO DAILY [facility] Last Admin: 03/08/25 08:44 Dose: 50 mg Documented By: MEMO Sodium Chloride (0.9 % Sodium Chloride Flush 3 Ml Syringe) 3 ml IVFLUSH QSHIFT [facility] Last Admin: 03/08/25 07:25 Dose: Not Given Documented By: MEMO Non-Admin Reason: Previously Administered Spironolactone (Spironolactone 25 Mg Tablet) 25 mg PO DAILY [facility]; Protocol Last Admin: 03/08/25 08:44 Dose: 25 mg Documented By: MEMO Thiamine HCl (Thiamine Hcl 100 Mg Tablet) 100 mg PO BID [facility] Last Admin: 03/08/25 08:43 Dose: 100 mg Documented By: MEMO Labs 03/08/25 08:55 03/08/25 08:55 Labs: Laboratory Results - last 24 hr 03/07/25 03/07/25 03/07/25 11:40 16:26 17:37 MCV MCH MCHC RDW Plt Count MPV Immature Gran % (Auto) Neut % (Auto) Lymph % (Auto) [place] % (Auto) Eos % (Auto) Baso % (Auto) Lymph # (Auto) [place] # (Auto) Eos # (Auto) Baso # (Auto) Abs Immat Gran (auto) Absolute Neuts (auto) Absolute Nucleated RBC Nucleated RBC % (auto) PT INR Anion Gap Estim Creat Clear Calc Estimated GFR POC Glucose 111 110 Random Glucose Calcium Phosphorus Magnesium HIV 1&2 Ab/P24 Ag 4thGn Nonreactive 03/07/25 03/08/25 03/08/25 20:26 07:18 08:55 MCV 93.9 MCH 32.7 MCHC 34.8 RDW 14.2 Plt Count 139 L MPV 9.9 Immature Gran % (Auto) 2.4 H Neut % (Auto) 68.1 Lymph % (Auto) 17.3 L [place] % (Auto) 9.9 Eos % (Auto) 1.9 Baso % (Auto) 0.4 Lymph # (Auto) 1.8 [place] # (Auto) 1.0 Eos # (Auto) 0.2 Baso # (Auto) 0.0 Abs Immat Gran (auto) 0.25 H Absolute Neuts (auto) 7.2 Absolute Nucleated RBC 0.000 Nucleated RBC % (auto) 0.0 PT 18.6 H D INR 1.6 H Anion Gap 13 Estim Creat Clear Calc 82.5 Estimated GFR > 60 POC Glucose 161 H 100 Random Glucose 125 H Calcium 8.6 Phosphorus 2.8 Magnesium 1.5 L HIV 1&2 Ab/P24 Ag 4thGn 03/08/25 11:04 MCV MCH MCHC RDW Plt Count MPV Immature Gran % (Auto) Neut % (Auto) Lymph % (Auto) [place] % (Auto) Eos % (Auto) Baso % (Auto) Lymph # (Auto) [place] # (Auto) Eos # (Auto) Baso # (Auto) Abs Immat Gran (auto) Absolute Neuts (auto) Absolute Nucleated RBC Nucleated RBC % (auto) PT INR Anion Gap Estim Creat Clear Calc Estimated GFR POC Glucose 123 H Random Glucose Calcium Phosphorus Magnesium HIV 1&2 Ab/P24 Ag 4thGn Microbiology Microbiology Results: Microbiology 03/02/25 20:38 Gram Stain - Final Abdominal Fluid Routine Culture - Final No growth after 2 days Anaerobic Culture - Final NO GROWTH AFTER 5 DAYS Assessment and Plan (1) Pneumoperitoneum: Status: Acute (2) SBP (spontaneous bacterial peritonitis): Status: Acute (3) Septic shock: Status: Acute (4) Actinomycosis: Status: Acute Plan d7, 69yo M with EtOH cirrhosis with ascites, DM2, HTN, and HLD sent in from [facility] where he was undergoing STR, presented with abd pain, found to be febrile and hypotensive and admitted to the ICU for septic shock treated with Levophed, stepped down to hospitalist service 03/07/25 septic shock due to SBP, question of colitis, and actinomycosis - on piperacillin-tazobactam 03/04- which will cover both SBP and actinomycosis - got albumin for SBP 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 findings. Repeat BCx today. If negative, place midline, then give ertapenem x14d then doxy x6mo; will need outpt ID follow-up - hypotension also due to cirrhosis; started on midodrine cirrhosis with ascites - spironolactone + furosemide pneumoperitoneum - likely due to paracentesis, rather than bowel perforation per Gen Surg; abd benign; Gen Surg signed off AUD - naltrexone, vitamins hypoMg - replete, recheck level in AM DM2 - correction-dose insulin VTE ppx - start enoxaparin dispo - STR In my clinical judgment, the patient requires continued inpatient hospitalization for the following reasons: actinomycosis bacteremia on IV ABX Total time managing care of this patient today: 50 minutes. Quality Stroke Does the patient have a stroke diagnosis?: No VTE Prior VTE?: No VTE Risk Level:: Medical - moderate - high VTE Device Contraindication: N/A - Device Ordered VTE Drug Contraindication: N/A - Med Ordered
[2025-03-08 11:46] VITALS: BP 118/64; PULSE 69; RESP 18; TEMP 36.6; O2SAT 93
[2025-03-08 15:59] VITALS: BP 101/59; PULSE 71; RESP 17; TEMP 36.5; O2SAT 93
[2025-03-08 16:16] LABS: Glucose, Whole Blood 120 mg/dL (60-115)
[2025-03-08 19:10] VITALS: BP 123/55; PULSE 80; RESP 18; TEMP 36.5; O2SAT 93
[2025-03-08 19:52] LABS: Glucose, Whole Blood 152 mg/dL (60-115)
[2025-03-08] MEDS: 0.9 % Sodium Chloride Flush 3 ML SYRINGE IVFLUSH (22:39)
[2025-03-08 23:14] VITALS: BP 115/60; PULSE 80; RESP 18; TEMP 36.4; O2SAT 96
[2025-03-09] VITALS (8 sets, daily range): BP systolic 107–133; BP diastolic 59–76; PULSE 62–88; RESP 16–18; TEMP 36.4–36.6; O2SAT 94–98; BMI 26.7
[2025-03-09 07:09] LABS: MANUAL DIFF FLAG NO
[2025-03-09 07:11] LABS: Hematocrit 31.8 % (42.0-52.0); Hemoglobin 10.7 g/dl (14.0-18.0); Imm Gran Abs Auto 0.44 X10*3/uL (0.00-0.03); Imm Gran Pct Auto 4.3 % (0.0-0.4); Lymphocytes Absolute Auto 2.0 X10*3/uL (1.2-4.9); Mean Corpuscular HGB Conc 33.6 g/dl (31.0-36.0); Mean Corpuscular Hemoglobin 31.8 pg (27.0-33.0); Mean Corpuscular Volume 94.6 fL (80.0-98.0); NRBC Abs Auto 0.000 X10*3/uL (0.0-0.012); NRBC Pct Auto 0.0 /100WBC (0.0-0.2); Platelet Count 148 X10*3/uL (160-400); Red Blood Count 3.36 X10*6/uL (4.60-5.80); White Blood Count 10.3 X10*3/uL (4.8-10.8)
[2025-03-09 07:21] LABS: Glucose, Whole Blood 136 mg/dL (60-115)
[2025-03-09 07:38] LABS: Anion Gap 10 (12-20); Blood Urea Nitrogen 15 mg/dL (9-16); Calcium 8.4 mg/dL (8.4-10.2); Carbon Dioxide 31 mmol/L (22-29); Chloride 96 mmol/L (96-108); Creatinine Clr Calc Pharmacy 94.4; Estimated Glomerular Filt Rate > 60; Magnesium 1.3 mg/dL (1.6-2.6); Potassium 3.6 mmol/L (3.3-5.1); Sodium 133 mmol/L (135-145)
[2025-03-09] MEDS: Magnesium Sulfate/H2O 2 GM/50 ML PIGGYBACK IV (07:58)
[2025-03-09] MEDS: Nicotine 7 MG PATCH.TD24 TRANSDERMA (08:00)
[2025-03-09 11:33] LABS: Glucose, Whole Blood 169 mg/dL (60-115)
--- NOTE | 2025-03-09 12:29 | P.PNIM_ITS ---
Subjective Subjective Date of Service: 03/09/25 Interval History: fluid leak from paracentesis site resolved; no abd pain; no dyspnea; no cough; refuses STR, wants to go home to take care of his pets Review of Systems Review of Systems: Yes all other systems are reviewed and are negative Physical Exam 2 Vital Signs: Vital Signs: Last Vital Signs Temp 97.8 F 03/09/25 11:20 Pulse 88 03/09/25 11:20 Resp 17 03/09/25 11:20 BP 107/59 L 03/09/25 11:20 Pulse Ox 98 03/09/25 11:20 O2 Del Method Room Air 03/09/25 11:20 O2 Flow Rate 97 03/03/25 19:00 Oxygen Flow Rate 2 03/02/25 21:40 BMI result Body Mass Index 26.7 Gen: in no acute distress HEENT: sclera anicteric, moist mucus membranes Neck: supple Lungs: clear to auscultation bilaterally Heart: regular rate and rhythm, no murmurs Abd: soft but distended, fluid wave, nontender Ext: 1+ edema B legs Skin: warm/well-perfused Neuro: alert and oriented x3, no focal findings Psych: appropriate affect Objective Data Active Medications Benzocaine (Throat Lozenge, Medicated Lozenge) 1 lozenge MUCOUS MEM Q2H PRN PRN Reason: Sore Throat Last Admin: 03/07/25 20:49 Dose: 1 lozenge Documented By: ARTI Dextrose (Dextrose 50 % 25 Gm/50 Ml Syringe) 25 gm IVPUSH Q15M PRN; Protocol PRN Reason: per Hypoglycemia Standing Ord. Folic Acid (Folic Acid 1 Mg Tablet) 1 mg PO DAILY [facility] Last Admin: 03/09/25 07:59 Dose: 1 mg Documented By: KRISTIE Furosemide (Furosemide 40 Mg Tablet) 40 mg PO BID@0900,1800 [facility]; Protocol Last Admin: 03/09/25 08:00 Dose: 40 mg Documented By: KRISTIE Glucose (Glucose Gel 15 Gm Gel..Gram.) 15 gm PO Q15M PRN; Protocol PRN Reason: per Hypoglycemia Standing Ord. Piperacillin Sod/Tazobactam (Sod 4.5 gm/ Sodium Chloride) 100 mls @ 200 mls/hr IV Q6H [facility] Last Infusion: 03/09/25 11:18 Dose: Infused Documented By: KRISTIE Insulin Human Lispro (Insulin Lispro 100 Unit/Ml 3 Ml Vial) 0 unit SUBCUT QIDACHS [facility]; Protocol Last Admin: 03/09/25 11:47 Dose: 2 unit Documented By: KRISTIE Lactulose (Lactulose 20 Gm/30 Ml Solution) 10 gm PO DAILY [facility] Last Admin: 03/09/25 07:59 Dose: 10 gm Documented By: KRISTIE Magnesium Oxide (Magnesium Oxide 400 Mg Tablet) 400 mg PO BIDPC [facility] Last Admin: 03/09/25 07:59 Dose: 400 mg Documented By: KRISTIE Midodrine (Midodrine Hcl 5 Mg Tablet) 5 mg PO TID [facility] Last Admin: 03/09/25 07:59 Dose: 5 mg Documented By: KRISTIE Naltrexone HCl (Naltrexone Hcl 50 Mg Tablet) 25 mg PO DAILY [facility] Last Admin: 03/09/25 07:59 Dose: 25 mg Documented By: KRISTIE Nicotine (Nicotine 7 Mg Patch.Td24) 7 mg TRANSDERMA Q24H [facility] Last Admin: 03/09/25 08:00 Dose: 7 mg Documented By: KRISTIE Nystatin (Nystatin Powder 15 Gm Bottle) 1 appl TOPICAL BID [facility]; Protocol Last Admin: 03/09/25 08:01 Dose: 1 appl Documented By: KRISTIE Pyridoxine HCl (Pyridoxine Hcl (Vitamin B6) 50 Mg Tablet) 50 mg PO DAILY [facility] Last Admin: 03/09/25 07:59 Dose: 50 mg Documented By: KRISTIE Sodium Chloride (0.9 % Sodium Chloride Flush 3 Ml Syringe) 3 ml IVFLUSH QSHIFT [facility] Last Admin: 03/09/25 08:01 Dose: Not Given Documented By: KRISTIE Non-Admin Reason: IV Running Spironolactone (Spironolactone 25 Mg Tablet) 25 mg PO DAILY [facility]; Protocol Last Admin: 03/09/25 08:00 Dose: 25 mg Documented By: KRISTIE Thiamine HCl (Thiamine Hcl 100 Mg Tablet) 100 mg PO BID [facility] Last Admin: 03/09/25 07:59 Dose: 100 mg Documented By: KRISTIE Labs 03/09/25 06:39 03/09/25 06:39 Labs: Laboratory Results - last 24 hr 03/08/25 03/08/25 03/09/25 16:11 19:43 06:39 MCV 94.6 MCH 31.8 MCHC 33.6 RDW 14.3 Plt Count 148 L MPV 9.8 Immature Gran % (Auto) 4.3 H Neut % (Auto) 64.1 Lymph % (Auto) 19.1 L [place] % (Auto) 10.1 Eos % (Auto) 1.9 Baso % (Auto) 0.5 Lymph # (Auto) 2.0 [place] # (Auto) 1.0 Eos # (Auto) 0.2 Baso # (Auto) 0.1 Abs Immat Gran (auto) 0.44 H Absolute Neuts (auto) 6.6 Absolute Nucleated RBC 0.000 Nucleated RBC % (auto) 0.0 Anion Gap 10 L Estim Creat Clear Calc 94.4 Estimated GFR > 60 POC Glucose 120 H 152 H Random Glucose 133 H Calcium 8.4 Phosphorus 2.9 Magnesium 1.3 L* 03/09/25 03/09/25 07:18 11:28 MCV MCH MCHC RDW Plt Count MPV Immature Gran % (Auto) Neut % (Auto) Lymph % (Auto) [place] % (Auto) Eos % (Auto) Baso % (Auto) Lymph # (Auto) [place] # (Auto) Eos # (Auto) Baso # (Auto) Abs Immat Gran (auto) Absolute Neuts (auto) Absolute Nucleated RBC Nucleated RBC % (auto) Anion Gap Estim Creat Clear Calc Estimated GFR POC Glucose 136 H 169 H Random Glucose Calcium Phosphorus Magnesium Microbiology Microbiology Results: Microbiology 03/08/25 06:30 Blood Culture - Preliminary Blood - Venous No growth after 24 hours. 03/08/25 06:30 Blood Culture - Preliminary Blood - Venous No growth after 24 hours. 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: on piperacillin-tazobactam 03/04- which will cover both SBP and actinomycosis; got albumin for SBP; ID consulted, 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 findings; BCx repeated 03/08 and if negative, place midline, then give ertapenem x14d then doxy x6mo; will need outpt ID follow-up hypoMg: replete IV/PO, recheck level tomorrow pneumoperitoneum: likely due to paracentesis, rather than bowel perforation per Gen Surg; abd benign; Gen Surg signed off hypotension: also due to cirrhosis-mediated peripheral vasodilation in addition to septic shock; started on midodrine; BPs improved cirrhosis with ascites: resumed spironolactone + furosemide AUD: naltrexone, vitamins DM2: correction-dose insulin VTE ppx: enoxaparin dispo: STR recommended but pt refusing, so will need to go home with VNA/home infusion In my clinical judgment, the patient requires continued inpatient hospitalization for the following reasons: actinomycosis bacteremia, on IV ABX Total time managing care of this patient today: 35 minutes. Quality Stroke Does the patient have a stroke diagnosis?: No VTE Prior VTE?: No VTE Risk Level:: Medical - moderate - high VTE Device Contraindication: N/A - Device Ordered VTE Drug Contraindication: N/A - Med Ordered
--- NOTE | 2025-03-09 13:55 | MHC.CM.PN ---
Per rounds, Pt waiting for cultures, a mid line and will need 2 weeks IV ABX. CM met with pt. to ask about his DCP. Pt. said he will go back to STR (but he wants to go home navneet after that). Referral updated to [facility].
[2025-03-09] MEDS: 0.9 % Sodium Chloride Flush 3 ML SYRINGE IVFLUSH ×2 (15:14→20:32)
[2025-03-09 16:03] LABS: Adenosine Deaminase Peritonl F 5.5 U/L (<7.6)
[2025-03-09 16:12] LABS: Glucose, Whole Blood 89 mg/dL (60-115)
[2025-03-09 21:06] LABS: Glucose, Whole Blood 129 mg/dL (60-115)
[2025-03-10] MEDS: Throat Lozenge, Medicated LOZENGE 1 LOZENGE MUCOUS MEM (01:28)
[2025-03-10 03:16] VITALS: BP 124/66; PULSE 70; RESP 16; TEMP 36.1; O2SAT 96
[2025-03-10 07:17] LABS: Glucose, Whole Blood 124 mg/dL (60-115)
[2025-03-10 07:41] VITALS: BP 112/70; PULSE 83; RESP 18; TEMP 36.4; O2SAT 92
[2025-03-10] MEDS: 0.9 % Sodium Chloride Flush 3 ML SYRINGE IVFLUSH ×2 (08:11→22:02)
[2025-03-10 08:46] LABS: MANUAL DIFF FLAG NO
[2025-03-10 08:52] LABS: Hematocrit 39.0 % (42.0-52.0); Hemoglobin 12.7 g/dl (14.0-18.0); Imm Gran Abs Auto 0.23 X10*3/uL (0.00-0.03); Imm Gran Pct Auto 2.5 % (0.0-0.4); Lymphocytes Absolute Auto 1.7 X10*3/uL (1.2-4.9); Mean Corpuscular HGB Conc 32.6 g/dl (31.0-36.0); Mean Corpuscular Hemoglobin 31.5 pg (27.0-33.0); Mean Corpuscular Volume 96.8 fL (80.0-98.0); NRBC Abs Auto 0.000 X10*3/uL (0.0-0.012); NRBC Pct Auto 0.0 /100WBC (0.0-0.2); Platelet Count 149 X10*3/uL (160-400); Red Blood Count 4.03 X10*6/uL (4.60-5.80); White Blood Count 9.2 X10*3/uL (4.8-10.8)
[2025-03-10 09:18] LABS: Anion Gap 12 (12-20); Blood Urea Nitrogen 16 mg/dL (9-16); Calcium 9.0 mg/dL (8.4-10.2); Carbon Dioxide 29 mmol/L (22-29); Chloride 96 mmol/L (96-108); Creatinine Clr Calc Pharmacy 97.2; Estimated Glomerular Filt Rate > 60; Magnesium 1.7 mg/dL (1.6-2.6); Potassium 4.2 mmol/L (3.3-5.1); Sodium 133 mmol/L (135-145)
--- NOTE | 2025-03-10 10:47 | HO.PM.IMPN ---
Subjective Subjective Date of Service: 03/10/25 Interval History: no abd pain no dyspnea or cough no fluid Review of Systems Review of Systems: Yes all other systems are reviewed and are negative Physical Exam Vital Signs: Vital Signs: Last Vital Signs Temp 97.5 F 03/10/25 07:41 Pulse 83 03/10/25 07:41 Resp 18 03/10/25 07:41 BP 112/70 03/10/25 07:41 Pulse Ox 92 03/10/25 07:41 O2 Del Method Room Air 03/10/25 07:41 O2 Flow Rate 97 03/03/25 19:00 Oxygen Flow Rate 2 03/02/25 21:40 BMI result Body Mass Index 26.7 Gen: in no acute distress HEENT: sclera anicteric, moist mucus membranes Neck: supple Lungs: clear to auscultation bilaterally Heart: regular rate and rhythm, no murmurs Abd: soft, fluid wave, nontender, no ascites fluid leak Ext: 1+ edema B legs Skin: warm/well-perfused Neuro: alert and oriented x3, no focal findings Psych: appropriate affect Objective Data Active Medications Benzocaine (Throat Lozenge, Medicated Lozenge) 1 lozenge MUCOUS MEM Q2H PRN PRN Reason: Sore Throat Last Admin: 03/10/25 01:28 Dose: 1 lozenge Documented By: CATRACHITO Dextrose (Dextrose 50 % 25 Gm/50 Ml Syringe) 25 gm IVPUSH Q15M PRN; Protocol PRN Reason: per Hypoglycemia Standing Ord. Folic Acid (Folic Acid 1 Mg Tablet) 1 mg PO DAILY [facility] Last Admin: 03/10/25 08:10 Dose: 1 mg Documented By: SASHA Furosemide (Furosemide 40 Mg Tablet) 40 mg PO BID@0900,1800 [facility]; Protocol Last Admin: 03/10/25 08:09 Dose: 40 mg Documented By: SASHA Glucose (Glucose Gel 15 Gm Gel..Gram.) 15 gm PO Q15M PRN; Protocol PRN Reason: per Hypoglycemia Standing Ord. Piperacillin Sod/Tazobactam (Sod 4.5 gm/ Sodium Chloride) 100 mls @ 200 mls/hr IV Q6H [facility] Last Infusion: 03/10/25 05:27 Dose: Infused Documented By: CATRACHITO Insulin Human Lispro (Insulin Lispro 100 Unit/Ml 3 Ml Vial) 0 unit SUBCUT QIDACHS [facility]; Protocol Last Admin: 03/10/25 07:19 Dose: Not Given Documented By: SASHA Non-Admin Reason: No Insulin Coverage Lactulose (Lactulose 20 Gm/30 Ml Solution) 10 gm PO DAILY [facility] Last Admin: 03/10/25 08:11 Dose: 10 gm Documented By: SASHA Magnesium Oxide (Magnesium Oxide 400 Mg Tablet) 400 mg PO BIDPC [facility] Last Admin: 03/10/25 08:10 Dose: 400 mg Documented By: SASHA Midodrine (Midodrine Hcl 5 Mg Tablet) 5 mg PO TID [facility] Last Admin: 03/10/25 08:10 Dose: 5 mg Documented By: SASHA Naltrexone HCl (Naltrexone Hcl 50 Mg Tablet) 25 mg PO DAILY [facility] Last Admin: 03/10/25 08:09 Dose: 25 mg Documented By: SASHA Nicotine (Nicotine 7 Mg Patch.Td24) 7 mg TRANSDERMA Q24H [facility] Last Admin: 03/10/25 08:10 Dose: Not Given Documented By: SASHA Non-Admin Reason: Patient Refused Nystatin (Nystatin Powder 15 Gm Bottle) 1 appl TOPICAL BID [facility]; Protocol Last Admin: 03/10/25 08:12 Dose: 1 appl Documented By: SASHA Pyridoxine HCl (Pyridoxine Hcl (Vitamin B6) 50 Mg Tablet) 50 mg PO DAILY [facility] Last Admin: 03/10/25 08:10 Dose: 50 mg Documented By: SASHA Sodium Chloride (0.9 % Sodium Chloride Flush 3 Ml Syringe) 3 ml IVFLUSH QSHIFT [facility] Last Admin: 03/10/25 08:11 Dose: 3 ml Documented By: SASHA Spironolactone (Spironolactone 25 Mg Tablet) 25 mg PO DAILY [facility]; Protocol Last Admin: 03/10/25 08:10 Dose: 25 mg Documented By: SASHA Thiamine HCl (Thiamine Hcl 100 Mg Tablet) 100 mg PO BID [facility] Last Admin: 03/10/25 08:10 Dose: 100 mg Documented By: SASHA Labs 03/10/25 08:23 03/10/25 08:23 Labs: Laboratory Results - last 24 hr 03/03/25 03/09/25 03/09/25 11:20 11:28 16:05 MCV MCH MCHC RDW Plt Count MPV Immature Gran % (Auto) Neut % (Auto) Lymph % (Auto) [place] % (Auto) Eos % (Auto) Baso % (Auto) Lymph # (Auto) [place] # (Auto) Eos # (Auto) Baso # (Auto) Abs Immat Gran (auto) Absolute Neuts (auto) Absolute Nucleated RBC Nucleated RBC % (auto) Anion Gap Estim Creat Clear Calc Estimated GFR POC Glucose 169 H 89 Random Glucose Calcium Phosphorus Magnesium Perit Adenosine Deamin 5.5 03/09/25 03/10/25 03/10/25 21:02 07:05 08:23 MCV 96.8 MCH 31.5 MCHC 32.6 RDW 14.6 Plt Count 149 L MPV 9.5 Immature Gran % (Auto) 2.5 H Neut % (Auto) 65.8 Lymph % (Auto) 18.7 L [place] % (Auto) 10.8 Eos % (Auto) 1.6 Baso % (Auto) 0.6 Lymph # (Auto) 1.7 [place] # (Auto) 1.0 Eos # (Auto) 0.2 Baso # (Auto) 0.1 Abs Immat Gran (auto) 0.23 H Absolute Neuts (auto) 6.1 Absolute Nucleated RBC 0.000 Nucleated RBC % (auto) 0.0 Anion Gap 12 Estim Creat Clear Calc 97.2 Estimated GFR > 60 POC Glucose 129 H 124 H Random Glucose 126 H Calcium 9.0 D Phosphorus 2.8 Magnesium 1.7 Perit Adenosine Deamin Microbiology Microbiology Results: Microbiology 03/08/25 06:30 Blood Culture - Preliminary Blood - Venous No growth after 48 hours. 03/08/25 06:30 Blood Culture - Preliminary Blood - Venous No growth after 48 hours. Assessment and Plan (1) Pneumoperitoneum: Status: Acute (2) SBP (spontaneous bacterial peritonitis): Status: Acute (3) Septic shock: Status: Acute (4) Actinomycosis: Status: Acute Plan d9, 69yo M with EtOH cirrhosis with ascites, DM2, HTN, and HLD sent in from [facility] where he was undergoing STR, presented with abd pain, found to be febrile and hypotensive and admitted to the ICU for septic shock treated with Levophed, stepped down to hospitalist service 03/07/25 septic shock due to SBP, question of colitis, and 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 - on piperacillin-tazobactam 03/04- which will cover both SBP and actinomycosis; also got albumin for SBP 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 findings; BCx repeated 03/08 and negative, will order midline, then give ertapenem x14d then doxy x6mo; will need outpt ID follow-up hypotension: also due to cirrhosis-mediated peripheral vasodilation in addition to septic shock; started on midodrine; BPs improved hypoMg: repleted pneumoperitoneum: likely due to paracentesis, rather than bowel perforation per Gen Surg; abd benign; Gen Surg signed off cirrhosis with ascites: resumed spironolactone + furosemide, no further ascites leak from paracentesis site AUD: naltrexone, vitamins DM2: correction-dose insulin VTE ppx: enoxaparin dispo: pt agreeable to return to STR but will need midline In my clinical judgment, the patient requires continued inpatient hospitalization for the following reasons: actinomycosis bacteremia, on IV ABX, needs midline Total time managing care of this patient today: 35 minutes. Quality Stroke Does the patient have a stroke diagnosis?: No VTE Prior VTE?: No VTE Risk Level:: Medical - moderate - high VTE Device Contraindication: N/A - Device Ordered VTE Drug Contraindication: N/A - Med Ordered
[2025-03-10 11:18] LABS: Glucose, Whole Blood 156 mg/dL (60-115)
[2025-03-10 11:48] VITALS: BP 113/81; PULSE 65; RESP 20; TEMP 36.1; O2SAT 99
[2025-03-10 15:35] VITALS: BP 131/71; PULSE 78; RESP 20; TEMP 36.6; O2SAT 98
[2025-03-10 16:23] LABS: Glucose, Whole Blood 152 mg/dL (60-115)
[2025-03-10 19:51] VITALS: BP 137/70; PULSE 84; RESP 16; TEMP 36.4; O2SAT 94
[2025-03-10 20:36] LABS: Glucose, Whole Blood 119 mg/dL (60-115)
[2025-03-10 23:19] VITALS: BP 160/83; PULSE 78; RESP 16; TEMP 37.6; O2SAT 96
[2025-03-11] VITALS (8 sets, daily range): BP systolic 114–139; BP diastolic 64–78; PULSE 77–106; RESP 16–18; TEMP 36.2–37.2; O2SAT 93–97; BMI 25.8
[2025-03-11 07:11] LABS: Glucose, Whole Blood 124 mg/dL (60-115)
--- NOTE | 2025-03-11 07:19 | HO.PM.IMPN ---
Subjective Subjective Date of Service: 03/11/25 Interval History: Currently awaiting midline placement which will happen on Wednesday Complains of back pain for which he is being given symptomatic treatment Otherwise overnight stay uneventful Review of Systems Review of Systems: Yes all other systems are reviewed and are negative Physical Exam Exam: Exam: Gen: in no acute distress Lungs: Decreased breath sounds bilaterally, however RRR Heart: regular rate and rhythm, no murmurs Abd: soft, fluid wave, nontender, no ascites fluid leak Ext: 1+ edema B legs Skin: warm/well-perfused Neuro: alert and oriented x3, no focal findings Psych: appropriate affect Vital Signs: Vital Signs: Last Vital Signs Temp 98.3 F 03/11/25 03:18 Pulse 77 03/11/25 03:18 Resp 16 03/11/25 03:18 BP 122/68 03/11/25 03:18 Pulse Ox 96 03/11/25 03:18 O2 Del Method Room Air 03/11/25 03:18 O2 Flow Rate 97 03/03/25 19:00 Oxygen Flow Rate 2 03/02/25 21:40 BMI result Body Mass Index 25.8 Objective Data Active Medications Benzocaine (Throat Lozenge, Medicated Lozenge) 1 lozenge MUCOUS MEM Q2H PRN PRN Reason: Sore Throat Last Admin: 03/10/25 01:28 Dose: 1 lozenge Documented By: CATRACHITO Dextrose (Dextrose 50 % 25 Gm/50 Ml Syringe) 25 gm IVPUSH Q15M PRN; Protocol PRN Reason: per Hypoglycemia Standing Ord. Folic Acid (Folic Acid 1 Mg Tablet) 1 mg PO DAILY [facility] Last Admin: 03/10/25 08:10 Dose: 1 mg Documented By: SASHA Furosemide (Furosemide 40 Mg Tablet) 40 mg PO BID@0900,1800 [facility]; Protocol Last Admin: 03/10/25 16:31 Dose: 40 mg Documented By: SASHA Glucose (Glucose Gel 15 Gm Gel..Gram.) 15 gm PO Q15M PRN; Protocol PRN Reason: per Hypoglycemia Standing Ord. Piperacillin Sod/Tazobactam (Sod 4.5 gm/ Sodium Chloride) 100 mls @ 200 mls/hr IV Q6H [facility] Last Infusion: 03/11/25 05:18 Dose: Infused Documented By: CATRACHITO Insulin Human Lispro (Insulin Lispro 100 Unit/Ml 3 Ml Vial) 0 unit SUBCUT QIDACHS [facility]; Protocol Last Admin: 03/11/25 07:13 Dose: Not Given Documented By: SASHA Non-Admin Reason: No Insulin Coverage Lactulose (Lactulose 20 Gm/30 Ml Solution) 10 gm PO DAILY [facility] Last Admin: 03/10/25 08:11 Dose: 10 gm Documented By: SASHA Magnesium Oxide (Magnesium Oxide 400 Mg Tablet) 400 mg PO BIDPC [facility] Last Admin: 03/10/25 16:31 Dose: 400 mg Documented By: SASHA Midodrine (Midodrine Hcl 5 Mg Tablet) 5 mg PO TID [facility] Last Admin: 03/10/25 22:01 Dose: 5 mg Documented By: CATRACHITO Naltrexone HCl (Naltrexone Hcl 50 Mg Tablet) 25 mg PO DAILY [facility] Last Admin: 03/10/25 08:09 Dose: 25 mg Documented By: SASHA Nicotine (Nicotine 7 Mg Patch.Td24) 7 mg TRANSDERMA Q24H [facility] Last Admin: 03/10/25 08:10 Dose: Not Given Documented By: SASHA Non-Admin Reason: Patient Refused Nystatin (Nystatin Powder 15 Gm Bottle) 1 appl TOPICAL BID [facility]; Protocol Last Admin: 03/10/25 22:02 Dose: 1 appl Documented By: CATRACHITO Pyridoxine HCl (Pyridoxine Hcl (Vitamin B6) 50 Mg Tablet) 50 mg PO DAILY [facility] Last Admin: 03/10/25 08:10 Dose: 50 mg Documented By: SASHA Sodium Chloride (0.9 % Sodium Chloride Flush 3 Ml Syringe) 3 ml IVFLUSH QSHIFT [facility] Last Admin: 03/10/25 22:02 Dose: 3 ml Documented By: CATRACHITO Spironolactone (Spironolactone 25 Mg Tablet) 25 mg PO DAILY [facility]; Protocol Last Admin: 03/10/25 08:10 Dose: 25 mg Documented By: SASHA Thiamine HCl (Thiamine Hcl 100 Mg Tablet) 100 mg PO BID [facility] Last Admin: 03/10/25 22:01 Dose: 100 mg Documented By: CATRACHITO Labs 03/11/25 06:59 03/11/25 06:59 Labs: Laboratory Results - last 24 hr 10/11/25 10/11/25 10/11/25 08:23 11:09 16:16 MCV 96.8 MCH 31.5 MCHC 32.6 RDW 14.6 Plt Count 149 L MPV 9.5 Immature Gran % (Auto) 2.5 H Neut % (Auto) 65.8 Lymph % (Auto) 18.7 L [place] % (Auto) 10.8 Eos % (Auto) 1.6 Baso % (Auto) 0.6 Lymph # (Auto) 1.7 [place] # (Auto) 1.0 Eos # (Auto) 0.2 Baso # (Auto) 0.1 Abs Immat Gran (auto) 0.23 H Absolute Neuts (auto) 6.1 Absolute Nucleated RBC 0.000 Nucleated RBC % (auto) 0.0 Anion Gap 12 Estim Creat Clear Calc 97.2 Estimated GFR > 60 POC Glucose 156 H 152 H Random Glucose 126 H Calcium 9.0 D Phosphorus 2.8 Magnesium 1.7 03/10/25 03/11/25 20:33 06:56 MCV MCH MCHC RDW Plt Count MPV Immature Gran % (Auto) Neut % (Auto) Lymph % (Auto) [place] % (Auto) Eos % (Auto) Baso % (Auto) Lymph # (Auto) [place] # (Auto) Eos # (Auto) Baso # (Auto) Abs Immat Gran (auto) Absolute Neuts (auto) Absolute Nucleated RBC Nucleated RBC % (auto) Anion Gap Estim Creat Clear Calc Estimated GFR POC Glucose 119 H 124 H Random Glucose Calcium Phosphorus Magnesium Microbiology Microbiology Results: Microbiology 03/08/25 06:30 Blood Culture - Preliminary Blood - Venous No growth after 48 hours. 03/08/25 06:30 Blood Culture - Preliminary Blood - Venous No growth after 48 hours. 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 - on piperacillin-tazobactam 03/04- which will cover both SBP and actinomycosis; also got albumin for SBP 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 findings; BCx repeated 03/08 and negative, will order midline which will happen on Wednesday, then give ertapenem x14d then doxy x6mo; will need outpt ID follow-up hypotension: also due to cirrhosis-mediated peripheral vasodilation in addition to septic shock; started on midodrine; BPs improved hypoMg: repleted pneumoperitoneum: likely due to paracentesis, rather than bowel perforation per Gen Surg; abd benign; Gen Surg signed off cirrhosis with ascites: resumed spironolactone + furosemide, no further ascites leak from paracentesis site AUD: naltrexone, vitamins DM2: correction-dose insulin VTE ppx: enoxaparin dispo: pt agreeable to return to STR but will need midline which will happen on Wednesday In my clinical judgment, the patient requires continued inpatient hospitalization for the following reasons: actinomycosis bacteremia, on IV ABX, needs midlinewhich will happen on Wednesday Total time managing care of this patient today: 35 minutes. Quality Stroke Does the patient have a stroke diagnosis?: No VTE Prior VTE?: No VTE Risk Level:: Medical - moderate - high VTE Device Contraindication: N/A - Device Ordered VTE Drug Contraindication: N/A - Med Ordered
[2025-03-11 07:39] LABS: MANUAL DIFF FLAG NO
[2025-03-11 07:45] LABS: Hematocrit 32.6 % (42.0-52.0); Hemoglobin 10.9 g/dl (14.0-18.0); Imm Gran Abs Auto 0.09 X10*3/uL (0.00-0.03); Imm Gran Pct Auto 0.8 % (0.0-0.4); Lymphocytes Absolute Auto 1.6 X10*3/uL (1.2-4.9); Mean Corpuscular HGB Conc 33.4 g/dl (31.0-36.0); Mean Corpuscular Hemoglobin 31.6 pg (27.0-33.0); Mean Corpuscular Volume 94.5 fL (80.0-98.0); NRBC Abs Auto 0.000 X10*3/uL (0.0-0.012); NRBC Pct Auto 0.0 /100WBC (0.0-0.2); Platelet Count 165 X10*3/uL (160-400); Red Blood Count 3.45 X10*6/uL (4.60-5.80); White Blood Count 11.1 X10*3/uL (4.8-10.8)
[2025-03-11] MEDS: 0.9 % Sodium Chloride Flush 3 ML SYRINGE IVFLUSH ×3 (07:50→22:46)
[2025-03-11 07:58] LABS: Anion Gap 12 (12-20); Blood Urea Nitrogen 16 mg/dL (9-16); Calcium 9.0 mg/dL (8.4-10.2); Carbon Dioxide 30 mmol/L (22-29); Chloride 96 mmol/L (96-108); Creatinine Clr Calc Pharmacy 95.8; Estimated Glomerular Filt Rate > 60; Magnesium 1.5 mg/dL (1.6-2.6); Potassium 3.6 mmol/L (3.3-5.1); Sodium 134 mmol/L (135-145)
[2025-03-11 11:10] LABS: Glucose, Whole Blood 152 mg/dL (60-115)
[2025-03-11 15:30] LABS: Glucose, Whole Blood 118 mg/dL (60-115)
[2025-03-11 20:28] LABS: Glucose, Whole Blood 224 mg/dL (60-115)
[2025-03-12] VITALS (8 sets, daily range): BP systolic 107–136; BP diastolic 58–81; PULSE 63–89; RESP 16–20; TEMP 36.2–36.8; O2SAT 95–99; BMI 25.4
[2025-03-12 06:36] LABS: MANUAL DIFF FLAG NO
[2025-03-12 06:38] LABS: Hematocrit 32.4 % (42.0-52.0); Hemoglobin 10.8 g/dl (14.0-18.0); Imm Gran Abs Auto 0.11 X10*3/uL (0.00-0.03); Imm Gran Pct Auto 0.9 % (0.0-0.4); Lymphocytes Absolute Auto 1.7 X10*3/uL (1.2-4.9); Mean Corpuscular HGB Conc 33.3 g/dl (31.0-36.0); Mean Corpuscular Hemoglobin 32.5 pg (27.0-33.0); Mean Corpuscular Volume 97.6 fL (80.0-98.0); NRBC Abs Auto 0.000 X10*3/uL (0.0-0.012); NRBC Pct Auto 0.0 /100WBC (0.0-0.2); Platelet Count 152 X10*3/uL (160-400); Red Blood Count 3.32 X10*6/uL (4.60-5.80); White Blood Count 12.2 X10*3/uL (4.8-10.8)
[2025-03-12 06:51] LABS: Anion Gap 12 (12-20); Blood Urea Nitrogen 14 mg/dL (9-16); Calcium 8.5 mg/dL (8.4-10.2); Carbon Dioxide 28 mmol/L (22-29); Chloride 95 mmol/L (96-108); Creatinine Clr Calc Pharmacy 85.7; Estimated Glomerular Filt Rate > 60; Magnesium 1.5 mg/dL (1.6-2.6); Potassium 3.3 mmol/L (3.3-5.1); Sodium 132 mmol/L (135-145)
[2025-03-12 07:16] LABS: Glucose, Whole Blood 177 mg/dL (60-115)
--- NOTE | 2025-03-12 07:18 | P.PNIM_ITS ---
Subjective Subjective Date of Service: 03/12/25 Interval History: Currently awaiting midline placement which will happen tomorrow as today is a national holiday Otherwise overnight stay uneventful Review of Systems Review of Systems: Yes all other systems are reviewed and are negative Physical Exam 2 Exam: Exam: Gen: in no acute distress Lungs: Decreased breath sounds bilaterally, however RRR Heart: regular rate and rhythm, no murmurs Abd: soft, fluid wave, nontender, no ascites fluid leak Ext: 1+ edema B legs Skin: warm/well-perfused Neuro: alert and oriented x3, no focal findings Psych: appropriate affect Vital Signs: Vital Signs: Last Vital Signs Temp 97.3 F 03/12/25 03:24 Pulse 86 03/12/25 03:24 Resp 16 03/12/25 03:24 BP 107/66 03/12/25 03:24 Pulse Ox 95 03/12/25 03:24 O2 Del Method Room Air 03/12/25 03:24 O2 Flow Rate 97 03/03/25 19:00 Oxygen Flow Rate 2 03/02/25 21:40 BMI result Body Mass Index 25.4 Objective Data Active Medications Benzocaine (Throat Lozenge, Medicated Lozenge) 1 lozenge MUCOUS MEM Q2H PRN PRN Reason: Sore Throat Last Admin: 03/10/25 01:28 Dose: 1 lozenge Documented By: CATRACHITO Dextrose (Dextrose 50 % 25 Gm/50 Ml Syringe) 25 gm IVPUSH Q15M PRN; Protocol PRN Reason: per Hypoglycemia Standing Ord. Folic Acid (Folic Acid 1 Mg Tablet) 1 mg PO DAILY [facility] Last Admin: 03/11/25 07:49 Dose: 1 mg Documented By: SASHA Furosemide (Furosemide 40 Mg Tablet) 40 mg PO BID@0900,1800 [facility]; Protocol Last Admin: 03/11/25 16:16 Dose: 40 mg Documented By: SASHA Glucose (Glucose Gel 15 Gm Gel..Gram.) 15 gm PO Q15M PRN; Protocol PRN Reason: per Hypoglycemia Standing Ord. Piperacillin Sod/Tazobactam (Sod 4.5 gm/ Sodium Chloride) 100 mls @ 200 mls/hr IV Q6H [facility] Last Infusion: 03/12/25 06:15 Dose: Infused Documented By: PJ Insulin Human Lispro (Insulin Lispro 100 Unit/Ml 3 Ml Vial) 0 unit SUBCUT QIDACHS [facility]; Protocol Last Admin: 03/11/25 21:04 Dose: 4 unit Documented By: PJ Lactulose (Lactulose 20 Gm/30 Ml Solution) 10 gm PO DAILY [facility] Last Admin: 03/11/25 07:50 Dose: 10 gm Documented By: SASHA Magnesium Oxide (Magnesium Oxide 400 Mg Tablet) 400 mg PO BIDPC [facility] Last Admin: 03/11/25 16:15 Dose: 400 mg Documented By: SASHA Midodrine (Midodrine Hcl 5 Mg Tablet) 5 mg PO TID [facility] Last Admin: 03/11/25 21:04 Dose: 5 mg Documented By: PJ Naltrexone HCl (Naltrexone Hcl 50 Mg Tablet) 25 mg PO DAILY [facility] Last Admin: 03/11/25 07:49 Dose: 25 mg Documented By: SASHA Nicotine (Nicotine 7 Mg Patch.Td24) 7 mg TRANSDERMA Q24H [facility] Last Admin: 03/11/25 07:50 Dose: Not Given Documented By: SASHA Non-Admin Reason: Patient Refused Nystatin (Nystatin Powder 15 Gm Bottle) 1 appl TOPICAL BID [facility]; Protocol Last Admin: 03/11/25 22:46 Dose: 1 appl Documented By: PJ Pyridoxine HCl (Pyridoxine Hcl (Vitamin B6) 50 Mg Tablet) 50 mg PO DAILY [facility] Last Admin: 03/11/25 07:49 Dose: 50 mg Documented By: SASHA Sodium Chloride (0.9 % Sodium Chloride Flush 3 Ml Syringe) [facility] Last Admin: 03/11/25 22:46 Dose: 3 ml Documented By: PJ Spironolactone (Spironolactone 25 Mg Tablet) 25 mg PO DAILY [facility]; Protocol Last Admin: 03/11/25 07:49 Dose: 25 mg Documented By: SASHA Thiamine HCl (Thiamine Hcl 100 Mg Tablet) 100 mg PO BID [facility] Last Admin: 03/11/25 21:04 Dose: 100 mg Documented By: PJ Labs 03/12/25 06:15 03/12/25 06:15 Labs: Laboratory Results - last 24 hr 1003/11/25 03/11/25 06:59 10:57 15:21 MCV 94.5 MCH 31.6 MCHC 33.4 RDW 14.9 Plt Count 165 MPV 9.8 Immature Gran % (Auto) 0.8 H Neut % (Auto) 72.3 Lymph % (Auto) 14.6 L [place] % (Auto) 11.2 H Eos % (Auto) 0.6 Baso % (Auto) 0.5 Lymph # (Auto) 1.6 [place] # (Auto) 1.2 Eos # (Auto) 0.1 Baso # (Auto) 0.1 Abs Immat Gran (auto) 0.09 H Absolute Neuts (auto) 8.0 Absolute Nucleated RBC 0.000 Nucleated RBC % (auto) 0.0 Anion Gap 12 Estim Creat Clear Calc 95.8 Estimated GFR > 60 POC Glucose 152 H 118 H Random Glucose 119 H Calcium 9.0 Phosphorus 3.1 Magnesium 1.5 L 03/11/25 03/12/25 03/12/25 20:23 06:15 07:04 MCV 97.6 MCH 32.5 MCHC 33.3 RDW 14.9 Plt Count 152 L MPV 9.9 Immature Gran % (Auto) 0.9 H Neut % (Auto) 76.0 H Lymph % (Auto) 13.7 L [place] % (Auto) 8.7 Eos % (Auto) 0.5 Baso % (Auto) 0.2 Lymph # (Auto) 1.7 [place] # (Auto) 1.1 Eos # (Auto) 0.1 Baso # (Auto) 0.0 Abs Immat Gran (auto) 0.11 H Absolute Neuts (auto) 9.2 H Absolute Nucleated RBC 0.000 Nucleated RBC % (auto) 0.0 Anion Gap 12 Estim Creat Clear Calc 85.7 Estimated GFR > 60 POC Glucose 224 H 177 H Random Glucose 190 H Calcium 8.5 Phosphorus 2.5 L Magnesium 1.5 L Assessment and Plan (1) Pneumoperitoneum: Status: Acute (2) SBP (spontaneous bacterial peritonitis): Status: Acute (3) Septic shock: Status: Acute (4) Actinomycosis: Status: Acute Plan d10, 69yo M with EtOH cirrhosis with ascites, DM2, HTN, and HLD sent in from [facility] where he was undergoing STR, presented with abd pain, found to be febrile and hypotensive and admitted to the ICU for septic shock treated with Levophed, stepped down to hospitalist service 03/07/25, currently awaiting midline placement (which will happen on Tomorrow) septic shock due to SBP, question of colitis, and 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 - on piperacillin-tazobactam 03/04- which will cover both SBP and actinomycosis; also got albumin for SBP 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 findings; BCx repeated 03/08 and negative, will order midline which will happen on Tomorrow , then give ertapenem x14d then doxy x6mo; will need outpt ID follow-up hypotension: also due to cirrhosis-mediated peripheral vasodilation in addition to septic shock; started on midodrine; BPs improved pneumoperitoneum: likely due to paracentesis, rather than bowel perforation per Gen Surg; abd benign; Gen Surg signed off cirrhosis with ascites: cont spironolactone + furosemide, no further ascites leak from paracentesis site AUD: naltrexone, vitamins DM2: correction-dose insulin VTE ppx: enoxaparin dispo: pt agreeable to return to STR but will need midline which will happen on Tomorrow In my clinical judgment, the patient requires continued inpatient hospitalization for the following reasons: actinomycosis bacteremia, on IV ABX, needs midlinewhich will happen on tomorrow and hence the hold up Total time managing care of this patient today: 35 minutes. Quality Stroke Does the patient have a stroke diagnosis?: No VTE Prior VTE?: No VTE Risk Level:: Medical - moderate - high VTE Device Contraindication: N/A - Device Ordered VTE Drug Contraindication: N/A - Med Ordered
[2025-03-12] MEDS: 0.9 % Sodium Chloride Flush 3 ML SYRINGE IVFLUSH ×2 (08:12→15:28)
[2025-03-12] MEDS: Potassium Chloride ER 20 MEQ TAB.ER.PRT PO (08:12)
[2025-03-12 11:18] LABS: Glucose, Whole Blood 150 mg/dL (60-115)
[2025-03-12 15:42] LABS: Glucose, Whole Blood 129 mg/dL (60-115)
[2025-03-12 20:50] LABS: Glucose, Whole Blood 164 mg/dL (60-115)
[2025-03-13] VITALS (11 sets, daily range): BP systolic 106–137; BP diastolic 60–75; PULSE 60–80; RESP 16–20; TEMP 36.2–37.1; O2SAT 95–99; BMI 28.7
[2025-03-13] MEDS: Throat Lozenge, Medicated LOZENGE 1 LOZENGE MUCOUS MEM (04:31)
[2025-03-13 06:31] LABS: MANUAL DIFF FLAG NO
[2025-03-13 06:37] LABS: Hematocrit 34.8 % (42.0-52.0); Hemoglobin 11.5 g/dl (14.0-18.0); Imm Gran Abs Auto 0.07 X10*3/uL (0.00-0.03); Imm Gran Pct Auto 0.6 % (0.0-0.4); Lymphocytes Absolute Auto 1.7 X10*3/uL (1.2-4.9); Mean Corpuscular HGB Conc 33.0 g/dl (31.0-36.0); Mean Corpuscular Hemoglobin 31.8 pg (27.0-33.0); Mean Corpuscular Volume 96.1 fL (80.0-98.0); NRBC Abs Auto 0.000 X10*3/uL (0.0-0.012); NRBC Pct Auto 0.0 /100WBC (0.0-0.2); Platelet Count 187 X10*3/uL (160-400); Red Blood Count 3.62 X10*6/uL (4.60-5.80); White Blood Count 10.9 X10*3/uL (4.8-10.8)
[2025-03-13 06:52] LABS: Alanine Aminotransferase 21 U/L (0-40); Albumin Level 3.3 g/dL (3.5-5.0); Alkaline Phosphatase 87 U/L (39-117); Anion Gap 12 (12-20); Aspartate Amino Transferase 49 U/L (5-37); Blood Urea Nitrogen 13 mg/dL (9-16); Calcium 8.5 mg/dL (8.4-10.2); Carbon Dioxide 30 mmol/L (22-29); Chloride 94 mmol/L (96-108); Creatinine Clr Calc Pharmacy 104.1; Estimated Glomerular Filt Rate > 60; Magnesium 1.5 mg/dL (1.6-2.6); Potassium 3.4 mmol/L (3.3-5.1); Sodium 133 mmol/L (135-145); Total Protein 6.0 g/dL (6.5-8.0)
[2025-03-13 07:11] LABS: Glucose, Whole Blood 164 mg/dL (60-115)
--- NOTE | 2025-03-13 07:23 | HO.PM.IMPN ---
Subjective Subjective Date of Service: 03/13/25 Interval History: This am , he was supposed to get a PI CC as today was a working day after long weekend with limited IR resources, however, the pt had significant L neck erythema at the sit of Central line with tegaderm , swelling and tenderness and we were concerned about abscess as it will be CI in the setting of sepsis or abscess. nonhypoxic on RA , no dyspnea, dysphagia, oral cavity no issues other than mild poor dentition. Hence CT neck for abscess was done, -ve and we will proceed with PICC line as planned but given logistics, it'll happen tomorrow Review of Systems Review of Systems: Yes all other systems are reviewed and are negative Physical Exam Exam: Exam: Gen: L neck adjacent - redness/swelling and erythema noted - significant from yest Lungs: Decreased breath sounds bilaterally, however RRR Heart: regular rate and rhythm, no murmurs Abd: soft, fluid wave, nontender, no ascites fluid leak Ext: 1+ edema B legs Skin: warm/well-perfused Neuro: alert and oriented x3, no focal findings Psych: appropriate affect Vital Signs: Vital Signs: Last Vital Signs Temp 98.0 F 03/13/25 07:03 Pulse 62 03/13/25 07:03 Resp 18 03/13/25 07:03 BP 111/60 03/13/25 07:03 Pulse Ox 97 03/13/25 07:03 O2 Del Method Room Air 03/13/25 07:03 O2 Flow Rate 97 03/03/25 19:00 Oxygen Flow Rate 2 03/02/25 21:40 BMI result Body Mass Index 28.7 Objective Data Active Medications Benzocaine (Throat Lozenge, Medicated Lozenge) 1 lozenge MUCOUS MEM Q2H PRN PRN Reason: Sore Throat Last Admin: 03/13/25 04:31 Dose: 1 lozenge Documented By: PJ Dextrose (Dextrose 50 % 25 Gm/50 Ml Syringe) 25 gm IVPUSH Q15M PRN; Protocol PRN Reason: per Hypoglycemia Standing Ord. Folic Acid (Folic Acid 1 Mg Tablet) 1 mg PO DAILY [facility] Last Admin: 03/12/25 08:11 Dose: 1 mg Documented By: ROHINI Furosemide (Furosemide 40 Mg Tablet) 40 mg PO BID@0900,1800 [facility]; Protocol Last Admin: 03/12/25 16:59 Dose: 40 mg Documented By: ROHINI Glucose (Glucose Gel 15 Gm Gel..Gram.) 15 gm PO Q15M PRN; Protocol PRN Reason: per Hypoglycemia Standing Ord. Piperacillin Sod/Tazobactam (Sod 4.5 gm/ Sodium Chloride) 100 mls @ 200 mls/hr IV Q6H [facility] Last Infusion: 03/13/25 05:33 Dose: Infused Documented By: PJ Insulin Human Lispro (Insulin Lispro 100 Unit/Ml 3 Ml Vial) 0 unit SUBCUT QIDACHS [facility]; Protocol Last Admin: 03/12/25 21:17 Dose: 2 unit Documented By: PRAVEEN Lactulose (Lactulose 20 Gm/30 Ml Solution) 10 gm PO DAILY [facility] Last Admin: 03/12/25 08:12 Dose: 10 gm Documented By: ROHINI Magnesium Oxide (Magnesium Oxide 400 Mg Tablet) 400 mg PO BIDPC [facility] Last Admin: 03/12/25 16:59 Dose: 400 mg Documented By: ROHINI Midodrine (Midodrine Hcl 5 Mg Tablet) 5 mg PO TID [facility] Last Admin: 03/12/25 21:20 Dose: 5 mg Documented By: PRAVEEN Naltrexone HCl (Naltrexone Hcl 50 Mg Tablet) 25 mg PO DAILY [facility] Last Admin: 03/12/25 08:11 Dose: 25 mg Documented By: ROHINI Nicotine (Nicotine 7 Mg Patch.Td24) 7 mg TRANSDERMA Q24H [facility] Last Admin: 03/12/25 08:05 Dose: Not Given Documented By: ROHINI Non-Admin Reason: Patient Refused Nystatin (Nystatin Powder 15 Gm Bottle) 1 appl TOPICAL BID [facility]; Protocol Last Admin: 03/12/25 21:22 Dose: 1 appl Documented By: PRAVEEN Pyridoxine HCl (Pyridoxine Hcl (Vitamin B6) 50 Mg Tablet) 50 mg PO DAILY [facility] Last Admin: 03/12/25 08:11 Dose: 50 mg Documented By: ROHINI Sodium Chloride (0.9 % Sodium Chloride Flush 3 Ml Syringe) 3 ml IVFLUSH QSHIFT [facility] Last Admin: 03/13/25 00:00 Dose: 3 ml Documented By: PJ Spironolactone (Spironolactone 25 Mg Tablet) 25 mg PO DAILY [facility]; Protocol Last Admin: 03/12/25 08:11 Dose: 25 mg Documented By: ROHINI Thiamine HCl (Thiamine Hcl 100 Mg Tablet) 100 mg PO BID [facility] Last Admin: 03/12/25 21:17 Dose: 100 mg Documented By: PRAVEEN Labs 03/13/25 06:08 03/13/25 06:08 Labs: Laboratory Results - last 24 hr 03/12/25 03/12/25 03/12/25 11:15 15:30 20:42 MCV MCH MCHC RDW Plt Count MPV Immature Gran % (Auto) Neut % (Auto) Lymph % (Auto) [place] % (Auto) Eos % (Auto) Baso % (Auto) Lymph # (Auto) [place] # (Auto) Eos # (Auto) Baso # (Auto) Abs Immat Gran (auto) Absolute Neuts (auto) Absolute Nucleated RBC Nucleated RBC % (auto) Anion Gap Estim Creat Clear Calc Estimated GFR POC Glucose 150 H 129 H 164 H Random Glucose Calcium Magnesium Total Bilirubin AST ALT Alkaline Phosphatase Total Protein Albumin 03/13/25 03/13/25 06:08 07:04 MCV 96.1 MCH 31.8 MCHC 33.0 RDW 14.7 Plt Count 187 MPV 9.6 Immature Gran % (Auto) 0.6 H Neut % (Auto) 72.5 Lymph % (Auto) 15.3 L [place] % (Auto) 9.8 Eos % (Auto) 1.3 Baso % (Auto) 0.5 Lymph # (Auto) 1.7 [place] # (Auto) 1.1 Eos # (Auto) 0.1 Baso # (Auto) 0.1 Abs Immat Gran (auto) 0.07 H Absolute Neuts (auto) 7.9 Absolute Nucleated RBC 0.000 Nucleated RBC % (auto) 0.0 Anion Gap 12 Estim Creat Clear Calc 104.1 Estimated GFR > 60 POC Glucose 164 H Random Glucose 120 H Calcium 8.5 Magnesium 1.5 L Total Bilirubin 1.0 AST 49 H ALT 21 Alkaline Phosphatase 87 Total Protein 6.0 L Albumin 3.3 L Assessment and Plan (1) Pneumoperitoneum: Status: Acute (2) SBP (spontaneous bacterial peritonitis): Status: Acute (3) Septic shock: Status: Acute (4) Actinomycosis: Status: Acute Plan d11, 69yo M with EtOH cirrhosis with ascites, DM2, HTN, and HLD sent in from [facility] where he was undergoing STR, presented with abd pain, found to be febrile and hypotensive and admitted to the ICU for septic shock treated with Levophed, stepped down to hospitalist service 03/07/25, currently awaiting midline placement - we had to r/o abscess in neck s/p Central line. This am , he was supposed to get a PI CC as today was a working day after long weekend with limited IR resources, however, the pt had significant L neck erythema at the sit of Central line with tegaderm , swelling and tenderness and we were concerned about abscess as it will be CI in the setting of sepsis or abscess. nonhypoxic on RA , no dyspnea, dysphagia, oral cavity no issues other than mild poor dentition. 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 - on piperacillin-tazobactam 03/04- which will cover both SBP and actinomycosis; also got albumin for SBP 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 findings; BCx repeated 03/08 and negative, will order midline which will happen on Tomorrow, then give ertapenem x14d then doxy x6mo; will need outpt ID follow-up hypotension: also due to cirrhosis-mediated peripheral vasodilation in addition to septic shock; started on midodrine; BPs improved pneumoperitoneum: likely due to paracentesis, rather than bowel perforation per Gen Surg; abd benign; Gen Surg signed off cirrhosis with ascites: cont spironolactone + furosemide, no further ascites leak from paracentesis site AUD: naltrexone, vitamins DM2: correction-dose insulin VTE ppx: enoxaparin dispo: pt agreeable to return to STR but will need midline which will happen on Tomorrow In my clinical judgment, the patient requires continued inpatient hospitalization for the following reasons: actinomycosis bacteremia, on IV ABX, needs midlinewhich will happen on tomorrow and hence the hold up Total time managing care of this patient today: 35 minutes. Quality Stroke Does the patient have a stroke diagnosis?: No VTE Prior VTE?: No VTE Risk Level:: Medical - moderate - high VTE Device Contraindication: N/A - Device Ordered VTE Drug Contraindication: N/A - Med Ordered
[2025-03-13] MEDS: 0.9 % Sodium Chloride Flush 3 ML SYRINGE IVFLUSH ×4 (09:05→20:49)
[2025-03-13 11:18] LABS: Glucose, Whole Blood 144 mg/dL (60-115)
--- NOTE | 2025-03-13 15:34 | HO.WOUND ---
Wound Consult: Follow up 69yr old?male admitted to [facility] on 03/02/25 - See progress notes and H&P for detailed history.? Wound consult placed for buttocks.? Patient agreeable to assessment and photo documentation.? right elbow 03/08/25 - scab has fallen off, intact pink/purple blanching skin - no dressing needed Right foot 03/08/25 - small area of intact blanchable redness remains unchanged - no dressing needed left foot 03/08/25 - resurfaced - no further dressing needed Right temporal side 03/08/25 - resurfaced - no dressing needed Buttocks 03/08/25- noted with small area of irregularly shaped intact brown/purple discoloration - not over bony prominence - unclear etiology will follow for evolution. Buttock 03/13/25 - MASD - small resurfaced areas with intact newly epithelialized tissue pink shiny epithelial tissue. Other pigmented areas are intact and blanchable. No new topical recommendations needed at this time. Continue with barrier cream. Recommendations: 1. Turn and Reposition every 2 hours and as needed for patient comfort.? Use pillows or wedges to support off loading positions. 2. Off Load all bony prominences with use of pillows and heel boots if needed.? Apply Preventative foams where needed. ? 3. Monitor for incontinence and moisture control, use barrier creams when needed for prevention and treatment. 4. Provide adequate and supplemental nutrition.? 5.Continue low air loss mattress. 6. When applicable maintain blood glucose levels per Providers order. Buttocks: Off Load Pressure with Q2 hr turns and use of pillows - Cleanse with PH balance spray or wipes, pat dry. ?Apply thin layer of barrier cream to affected area. Apply twice daily and Reapply thin layer PRN after each episode of incontinence. Re-consult wound care Nurse for wound deterioration or wound changes.
[2025-03-13] MEDS: iohexoL 350 MG/ML 100 ML INFUS..BTL IV (15:38)
[2025-03-13 16:10] LABS: Glucose, Whole Blood 125 mg/dL (60-115)
[2025-03-13 20:28] LABS: Glucose, Whole Blood 137 mg/dL (60-115)
[2025-03-14 03:06] VITALS: BP 114/66; PULSE 80; RESP 18; TEMP 36.1; O2SAT 95
[2025-03-14 06:00] VITALS: BMI 25.1
[2025-03-14 06:08] LABS: MANUAL DIFF FLAG NO
[2025-03-14 06:20] LABS: Hematocrit 33.0 % (42.0-52.0); Hemoglobin 11.0 g/dl (14.0-18.0); Imm Gran Abs Auto 0.06 X10*3/uL (0.00-0.03); Imm Gran Pct Auto 0.5 % (0.0-0.4); Lymphocytes Absolute Auto 1.6 X10*3/uL (1.2-4.9); Mean Corpuscular HGB Conc 33.3 g/dl (31.0-36.0); Mean Corpuscular Hemoglobin 31.9 pg (27.0-33.0); Mean Corpuscular Volume 95.7 fL (80.0-98.0); NRBC Abs Auto 0.000 X10*3/uL (0.0-0.012); NRBC Pct Auto 0.0 /100WBC (0.0-0.2); Platelet Count 213 X10*3/uL (160-400); Red Blood Count 3.45 X10*6/uL (4.60-5.80); White Blood Count 12.2 X10*3/uL (4.8-10.8)
[2025-03-14 06:27] LABS: Alanine Aminotransferase 22 U/L (0-40); Albumin Level 3.4 g/dL (3.5-5.0); Alkaline Phosphatase 86 U/L (39-117); Anion Gap 13 (12-20); Aspartate Amino Transferase 52 U/L (5-37); Blood Urea Nitrogen 11 mg/dL (9-16); Calcium 8.9 mg/dL (8.4-10.2); Carbon Dioxide 29 mmol/L (22-29); Chloride 95 mmol/L (96-108); Creatinine Clr Calc Pharmacy 110.4; Estimated Glomerular Filt Rate > 60; Magnesium 1.5 mg/dL (1.6-2.6); Potassium 3.6 mmol/L (3.3-5.1); Sodium 133 mmol/L (135-145); Total Protein 6.1 g/dL (6.5-8.0)
--- NOTE | 2025-03-14 07:12 | HO.PM.IMPN ---
Subjective Subjective Date of Service: 03/14/25 Interval History: Still awaiting PICC line placement-patient is on schedule but we do not have a specific time hence the hold up for discharge Patient will go back to the facility on ertapenem, we will follow up with ID outpatient settings post discharge Review of Systems Review of Systems: Yes all other systems are reviewed and are negative Physical Exam Exam: Exam: Gen: L neck adjacent - redness/swelling and erythema noted, resolving since yesterday Lungs: Decreased breath sounds bilaterally, however RRR Heart: regular rate and rhythm, no murmurs Abd: soft, fluid wave, nontender, no ascites fluid leak Ext: 1+ edema B legs Skin: warm/well-perfused Neuro: alert and oriented x3, no focal findings Psych: appropriate affect Vital Signs: Vital Signs: Last Vital Signs Temp 96.9 F 03/14/25 03:06 Pulse 80 03/14/25 03:06 Resp 18 03/14/25 03:06 BP 114/66 03/14/25 03:06 Pulse Ox 95 03/14/25 03:06 O2 Del Method Room Air 03/14/25 03:06 O2 Flow Rate 97 03/03/25 19:00 Oxygen Flow Rate 2 03/02/25 21:40 BMI result Body Mass Index 25.1 Objective Data Active Medications Benzocaine (Throat Lozenge, Medicated Lozenge) 1 lozenge MUCOUS MEM Q2H PRN PRN Reason: Sore Throat Last Admin: 03/13/25 04:31 Dose: 1 lozenge Documented By: JP Dextrose (Dextrose 50 % 25 Gm/50 Ml Syringe) 25 gm IVPUSH Q15M PRN; Protocol PRN Reason: per Hypoglycemia Standing Ord. Folic Acid (Folic Acid 1 Mg Tablet) 1 mg PO DAILY [facility] Last Admin: 03/13/25 09:13 Dose: 1 mg Documented By: EUGENE Furosemide (Furosemide 40 Mg Tablet) 40 mg PO BID@0900,1800 [facility]; Protocol Last Admin: 03/13/25 17:32 Dose: 40 mg Documented By: EUGENE Glucose (Glucose Gel 15 Gm Gel..Gram.) 15 gm PO Q15M PRN; Protocol PRN Reason: per Hypoglycemia Standing Ord. Piperacillin Sod/Tazobactam (Sod 4.5 gm/ Sodium Chloride) 100 mls @ 200 mls/hr IV Q6H [facility] Last Infusion: 03/14/25 06:30 Dose: Infused Documented By: EARNEST Insulin Human Lispro (Insulin Lispro 100 Unit/Ml 3 Ml Vial) 0 unit SUBCUT QIDACHS [facility]; Protocol Last Admin: 03/13/25 20:38 Dose: Not Given Documented By: CATRACHITO Non-Admin Reason: No Insulin Coverage Lactulose (Lactulose 20 Gm/30 Ml Solution) 10 gm PO DAILY [facility] Last Admin: 03/13/25 09:06 Dose: 10 gm Documented By: EUGENE Magnesium Oxide (Magnesium Oxide 400 Mg Tablet) 400 mg PO BIDPC [facility] Last Admin: 03/13/25 17:32 Dose: 400 mg Documented By: EUGENE Midodrine (Midodrine Hcl 5 Mg Tablet) 5 mg PO TID [facility] Last Admin: 03/13/25 20:49 Dose: 5 mg Documented By: CATRACHITO Naltrexone HCl (Naltrexone Hcl 50 Mg Tablet) 25 mg PO DAILY [facility] Last Admin: 03/13/25 09:13 Dose: 25 mg Documented By: EUGENE Nicotine (Nicotine 7 Mg Patch.Td24) 7 mg TRANSDERMA Q24H [facility] Last Admin: 03/13/25 09:05 Dose: Not Given Documented By: EUGENE Non-Admin Reason: Patient Refused Nystatin (Nystatin Powder 15 Gm Bottle) 1 appl TOPICAL BID [facility]; Protocol Last Admin: 03/13/25 20:49 Dose: 1 appl Documented By: CATRACHITO Pyridoxine HCl (Pyridoxine Hcl (Vitamin B6) 50 Mg Tablet) 50 mg PO DAILY [facility] Last Admin: 03/13/25 09:17 Dose: 50 mg Documented By: EUGENE Sodium Chloride (0.9 % Sodium Chloride Flush 3 Ml Syringe) 3 ml IVFLUSH QSHIFT [facility] Last Admin: 03/13/25 20:49 Dose: 3 ml Documented By: CATRACHITO Spironolactone (Spironolactone 25 Mg Tablet) 25 mg PO DAILY [facility]; Protocol Last Admin: 03/13/25 12:37 Dose: Not Given Documented By: EUGENE Non-Admin Reason: Physician Approved Thiamine HCl (Thiamine Hcl 100 Mg Tablet) 100 mg PO BID [facility] Last Admin: 03/13/25 20:49 Dose: 100 mg Documented By: CATRACHITO Labs 03/14/25 05:33 03/14/25 05:33 Labs: Laboratory Results - last 24 hr 03/13/25 03/13/25 03/13/25 11:09 15:58 20:22 MCV MCH MCHC RDW Plt Count MPV Immature Gran % (Auto) Neut % (Auto) Lymph % (Auto) [place] % (Auto) Eos % (Auto) Baso % (Auto) Lymph # (Auto) [place] # (Auto) Eos # (Auto) Baso # (Auto) Abs Immat Gran (auto) Absolute Neuts (auto) Absolute Nucleated RBC Nucleated RBC % (auto) Anion Gap Estim Creat Clear Calc Estimated GFR POC Glucose 144 H 125 H 137 H Random Glucose Calcium Magnesium Total Bilirubin AST ALT Alkaline Phosphatase Total Protein Albumin 03/14/25 05:33 MCV 95.7 MCH 31.9 MCHC 33.3 RDW 14.6 Plt Count 213 MPV 9.7 Immature Gran % (Auto) 0.5 H Neut % (Auto) 75.3 H Lymph % (Auto) 13.3 L [place] % (Auto) 9.6 Eos % (Auto) 0.8 Baso % (Auto) 0.5 Lymph # (Auto) 1.6 [place] # (Auto) 1.2 Eos # (Auto) 0.1 Baso # (Auto) 0.1 Abs Immat Gran (auto) 0.06 H Absolute Neuts (auto) 9.2 H Absolute Nucleated RBC 0.000 Nucleated RBC % (auto) 0.0 Anion Gap 13 Estim Creat Clear Calc 110.4 Estimated GFR > 60 POC Glucose Random Glucose 107 Calcium 8.9 Magnesium 1.5 L Total Bilirubin 1.1 H AST 52 H ALT 22 Alkaline Phosphatase 86 Total Protein 6.1 L Albumin 3.4 L Microbiology Microbiology Results: Microbiology 03/08/25 06:30 Blood Culture - Final Blood - Venous No growth after 5 days. 03/08/25 06:30 Blood Culture - Final Blood - Venous No growth after 5 days. Assessment and Plan (1) SBP (spontaneous bacterial peritonitis): Status: Acute (2) Actinomycosis: Status: Acute Plan d12, 69yo M with EtOH cirrhosis with ascites, DM2, HTN, and HLD sent in from [facility] where he was undergoing STR, presented with abd pain, found to be febrile and hypotensive and admitted to the ICU for septic shock treated with Levophed, stepped down to hospitalist service 03/07/25, currently awaiting midline placement , resources limited. Currently awaiting PICC line placement, patient has been on schedule since yesterday when normal services have been resumed however resources limited because of limited facilities. We have ruled out left neck Adjacent abscess with a CT scan done on 03/13/2025. 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 findings; BCx repeated 03/08 and negative, will order midline which will happen on Tomorrow, then give ertapenem x14d then doxy x6mo; will need outpt ID follow-up hypotension: also due to cirrhosis-mediated peripheral vasodilation in addition to septic shock; continued on midodrine with good effect pneumoperitoneum: likely due to paracentesis, rather than bowel perforation per Gen Surg; abd benign; Gen Surg signed off cirrhosis with ascites: cont spironolactone + furosemide, paracentesis site no leak noted AUD: naltrexone, vitamins DM2: correction-dose insulin, adjusting insulin daily to maintain euglycemia VTE ppx: enoxaparin dispo: pt agreeable to return to STR but will need midline which will happen on today however given limited resources is likely going to happen tomorrow per staff In my clinical judgment, the patient requires continued inpatient hospitalization for the following reasons: actinomycosis bacteremia, on IV ABX, needs midlinewhich will happen on tomorrow and hence the hold up Total time managing care of this patient today: 35 minutes. This note is constructed using voice recognition software. While every effort has been made to ensure accuracy, dust box worker errors may have been included. Quality Stroke Does the patient have a stroke diagnosis?: No VTE Prior VTE?: No VTE Risk Level:: Medical - moderate - high VTE Device Contraindication: N/A - Device Ordered VTE Drug Contraindication: N/A - Med Ordered
[2025-03-14 07:26] VITALS: BP 137/76; PULSE 66; RESP 14; TEMP 36.5; O2SAT 96
[2025-03-14 07:32] LABS: Glucose, Whole Blood 122 mg/dL (60-115)
[2025-03-14] MEDS: 0.9 % Sodium Chloride Flush 3 ML SYRINGE IVFLUSH ×2 (07:50→17:48)
[2025-03-14 11:25] LABS: Glucose, Whole Blood 151 mg/dL (60-115)
[2025-03-14 11:42] VITALS: BP 110/66; PULSE 70; RESP 18; TEMP 37; O2SAT 96
--- NOTE | 2025-03-14 15:13 | MHC.CM.PN ---
pt dcd today with midline at 6 to [facility]
--- NOTE | 2025-03-14 15:16 | PM.DS ---
DS: Providers Provider Date of Service: 03/14/25 Date of admission: 03/02/25 20:58 Date of discharge: 03/14/25 Primary care physician: Abdiel Lozano MD Consults: 03/02/25 23:10 Consult to General Surgery Stat Consulting Provider: [facility] Reason for consultation: bowel perf Has provider been notified: No 03/03/25 03:05 Consult to Wound Care Routine Reason for consultation: Wound to Right medial occipital scalp, blister left foot, left elbow wound 03/07/25 10:38 Consult to Infectious Diseases Routine Consulting Provider: [facility] Reason for consultation: Actinomycosis bacteremia 03/11/25 01:44 Consult to Wound Care Routine Reason for consultation: pt incontinent of stool, rashy redness/bleeding to inner thighs DS: Diagnosis Discharge Diagnosis (1) SBP (spontaneous bacterial peritonitis): Status: Acute (2) Actinomycosis: Status: Acute DS: Summary Hospital Course Hospital Course: Septic shock due to SBP, question of colitis, and 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 69yo M with EtOH cirrhosis with ascites, DM2, HTN, and HLD sent in from [facility] where he was undergoing STR, presented with abd pain, found to be febrile and hypotensive and admitted to the ICU for septic shock treated with Levophed, stepped down to hospitalist service 03/07/25 post resolution of bacteremia. Patient completed 12 days of broad-spectrum antibiotics while in the hospital and needs 2 more days of ertapenem 1 g daily, got his PICC line today 03/14/2025 and is being discharged to his rehab facility. ID consulted, 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 findings; BCx repeated 03/08 and negative, will order midline which will happen on Tomorrow, then give ertapenem x14d then doxy x6mo; will need outpt ID follow-up hypotension: also due to cirrhosis-mediated peripheral vasodilation in addition to septic shock; we have started him on midodrine 10 mg p.o. t.i.d. pneumoperitoneum: likely due to paracentesis, rather than bowel perforation per Gen Surg; abd benign; Gen Surg signed off cirrhosis with ascites: cont spironolactone + furosemide, paracentesis site no leak noted AUD: naltrexone, vitamins DM2: correction-dose insulin, adjusting insulin daily to maintain euglycemia VTE ppx: enoxaparin Total time managing care of this patient today: 55 minutes. This note is constructed using voice recognition software. While every effort has been made to ensure accuracy, experience designer errors may have been included. Time spent discussing smoking cessation with patient: more than 10 minutes Time Attestation Discharge Coordination Time (in mins): 35 minutes Quality: Safe Use of Opioids Does Pt have an Active Cancer Diagnosis on the Problem List?: No Quality: Stroke Does the patient have a stroke diagnosis?: No Physical Exam Vital Signs: Vital Signs: Last Vital Signs Temp 98.6 F 03/14/25 11:42 Pulse 70 03/14/25 11:42 Resp 18 03/14/25 11:42 BP 110/66 03/14/25 11:42 Pulse Ox 96 03/14/25 11:42 O2 Del Method Room Air 03/14/25 11:42 O2 Flow Rate 97 03/03/25 19:00 Oxygen Flow Rate 2 03/02/25 21:40 BMI result Body Mass Index 25.1 DS: Data Data Completed and Pending Labs on day of discharge: Laboratory Results - last 24 hr 03/13/25 03/13/25 03/14/25 15:58 20:22 05:33 WBC 12.2 H RBC 3.45 L Hgb 11.0 L Hct 33.0 L MCV 95.7 MCH 31.9 MCHC 33.3 RDW 14.6 Plt Count 213 MPV 9.7 Immature Gran % (Auto) 0.5 H Neut % (Auto) 75.3 H Lymph % (Auto) 13.3 L Kings % (Auto) 9.6 Eos % (Auto) 0.8 Baso % (Auto) 0.5 Lymph # (Auto) 1.6 Kings # (Auto) 1.2 Eos # (Auto) 0.1 Baso # (Auto) 0.1 Abs Immat Gran (auto) 0.06 H Absolute Neuts (auto) 9.2 H Absolute Nucleated RBC 0.000 Nucleated RBC % (auto) 0.0 Sodium 133 L Potassium 3.6 Chloride 95 L Carbon Dioxide 29 Anion Gap 13 BUN 11 Creatinine 0.59 Estim Creat Clear Calc 110.4 Estimated GFR > 60 POC Glucose 125 H 137 H Random Glucose 107 Calcium 8.9 Magnesium 1.5 L Total Bilirubin 1.1 H AST 52 H ALT 22 Alkaline Phosphatase 86 Total Protein 6.1 L Albumin 3.4 L 03/14/25 03/14/25 07:28 11:09 WBC RBC Hgb Hct MCV MCH MCHC RDW Plt Count MPV Immature Gran % (Auto) Neut % (Auto) Lymph % (Auto) [place] % (Auto) Eos % (Auto) Baso % (Auto) Lymph # (Auto) [place] # (Auto) Eos # (Auto) Baso # (Auto) Abs Immat Gran (auto) Absolute Neuts (auto) Absolute Nucleated RBC Nucleated RBC % (auto) Sodium Potassium Chloride Carbon Dioxide Anion Gap BUN Creatinine Estim Creat Clear Calc Estimated GFR POC Glucose 122 H 151 H Random Glucose Calcium Magnesium Total Bilirubin AST ALT Alkaline Phosphatase Total Protein Albumin Discharge Plan Discharge Anticipated Discharge Date/Time: 03/14/25 15:09 Patient Disposition: Home, Self-Care Discharge Diagnosis: Severe septic shock requiring pressor support 2/2 SBP and Actinomyces Referrals: [facility] [Other] - 1 Week Abdiel Lozano MD [Primary Care Provider, Internal Medicine] - 1 Week Discharge Medications: New furosemide 40 mg Tablet 40 mg PO BID@0900,1800 30 Days Qty: 60 3RF Protocol: Hold for SBP< HOLD for SBP < : 90 midodrine 5 mg Tablet 5 mg PO TID 30 Days Qty: 90 0RF nystatin [Nyamyc] 100,000 unit/gram Powder 1 appl topical BID 30 Days Qty: 60 3RF Protocol: Apply to: Apply to: abdomen/groin Sore Throat (benzocaine-menth) 15-3.6 mg Lozenge 1 cecelia mucous membrane Q2H PRN (Reason: Sore Throat) 30 Days Qty: 30 3RF doxycycline hyclate 100 mg capsule 100 mg PO BID 30 Days Qty: 60 3RF Continued naltrexone 50 mg Tablet 25 mg PO DAILY magnesium hydroxide [Milk of Magnesia] 400 mg/5 mL Suspension 30 ml PO DAILY PRN (Reason: Constipation) Rx Instructions: For no BM in 3 days bisacodyl 10 mg Suppository 10 mg UT DAILY PRN (Reason: Constipation) Rx Instructions: For no BM if M.OM ineffective Fleet Enema 19-7 gram/118 mL Enema 118 ml UT DAILY PRN (Reason: Constipation) Rx Instructions: For no BM &if Bisacodyl supp. ineffective folic acid 1 mg Tablet 1 mg PO DAILY ibuprofen 600 mg Tablet 600 mg PO BID lactulose 10 gram/15 mL Solution 15 ml PO DAILY sennosides [senna] 8.6 mg Tablet 17.2 mg PO DAILY acetaminophen 325 mg Tablet 650 mg PO Q4H PRN (Reason: pain or fever >101) acetaminophen 650 mg Suppository 650 mg UT Q4H PRN (Reason: pain or fever >101) thiamine HCl (vitamin B1) 100 mg Tablet 100 mg PO BID spironolactone 25 mg Tablet 25 mg PO DAILY pyridoxine (vitamin B6) 50 mg Tablet 50 mg PO DAILY nicotine 7 mg/24 hr Patch 24 Hour 1 patch TRANSDERMAL Q24H Discontinued furosemide 20 mg Tablet 30 mg PO DAILY Cepacol Lozenge 1 cecelia MUCOUS MEMBRANE Q3H PRN (Reason: Sore Throat) Muscle Rub Ultra(with menthol) Cream 1 appl TOPICAL BID PRN (Reason: knee pain) Rx Instructions: apply to left knee Discharge Orders: Discharge Order (Routine); Ordered 03/14/25 Ordered By: Hui Willard Diet: Low salt diet Activity on Discharge: As tolerated Stand Alone Forms: Patient Portal Discharge page Print Language: [place] Care Plan Goals: Completing antibiotic course with ertapenem 1 g daily for 2 more days up to 03/16/2025 (total 14 days' course) and doxycycline 100 b.i.d. for 6 months. We will need ID outpatient follow-up Health Concerns: Completing antibiotic regimen Following up with ID Plan of Treatment: Follow-up with ID Ertapenem 1 g for 2 more days up to 03/16/2025 to complete a total 14 day course of broad-spectrum antibiotics for his severe septic shock secondary to SBP, colitis, Actinomyces bacteremia Doxycycline 100 b.i.d. Assessment: See above
[2025-03-14 16:00] VITALS: BP 140/77; PULSE 69; RESP 19; TEMP 36.4; O2SAT 99
[2025-03-14 16:45] LABS: Glucose, Whole Blood 118 mg/dL (60-115)
[2025-03-14 20:00] VITALS: BP 130/63; PULSE 66; RESP 19; TEMP 37.5; O2SAT 97
== END 2025-03-14 20:00 | disposition home or self-care (01) | DRG 871 ==
LOC: HO.ED 21:05 → HO.EDOVER 21:08 → HO.ICU 21:15 → HO.IMC 03-07 13:17 → HO.S3 03-13 23:33
PROVIDERS: Family Medicine; Internal Medicine; Internal Medicine Critical Care Medicine; Nurse Practitioner Family; Admitting Provider Physician Assistant Medical; Emergency Provider Emergency Medicine; PCP Family Medicine; Visit Provider Student in an Organized Health Care Education/Training Program
DX: A41.9 Sepsis, unspecified organism (principal); K65.2 Spontaneous bacterial peritonitis; R65.21 Severe sepsis with septic shock; R57.1 Hypovolemic shock; E87.1 Hypo-osmolality and hyponatremia; K55.9 Vascular disorder of intestine, unspecified; A42.9 Actinomycosis, unspecified; K70.31 Alcoholic cirrhosis of liver with ascites; E11.9 Type 2 diabetes mellitus without complications; D63.8 Anemia in other chronic diseases classified elsewhere; R22.1 Localized swelling, mass and lump, neck; F10.90 Alcohol use, unspecified, uncomplicated; K52.9 Noninfective gastroenteritis and colitis, unspecified; K66.8 Other specified disorders of peritoneum; E83.42 Hypomagnesemia; Z87.891 Personal history of nicotine dependence; Z79.899 Other long term (current) drug therapy
CPT/HCPCS: 36415; 70491; 71045; 71250; 74176; 80048; 80053; 80202; 82040; 82042; 82140; 82150; 82272; 82565; 82570; 82945; 82947; 83540; 83605; 83615; 83690; 83735; 83880; 83986; 84100; 84157; 84311; 84443; 84484; 85025; 85610; 85730; 86704; 86706; 86803; 86850; 86900; 86901; 87040; 87070; 87073; 87077; 87086; 87185; 87205; 87340; 87389; 87502; 87635; 89051; 93005; 97110; 97163; 97167; 97530; 97535; 99285; J0131; J0613; J0696; J1335; J1450; J1836; J1885; J1938; J2543; J3010; J3373; J3374; J3475; J7120; P9047; Q9967

== ENCOUNTER → 2025-03-02 18:37 | Outpatient (BNV) | payer SELFPAY | PROVIDERS: Emergency Provider Emergency Medicine; Visit Provider Radiology Diagnostic Radiology | DX: A41.9 Sepsis, unspecified organism (principal); J98.11 Atelectasis; Z95.9 Presence of cardiac and vascular implant and graft, unspecified | CPT/HCPCS: 71045; 71250; 74176 ==

== ENCOUNTER → 2025-03-02 18:45 | Outpatient (BNV) | payer SELFPAY | PROVIDERS: Admitting Provider Physician Assistant Medical; Emergency Provider Emergency Medicine; PCP Family Medicine; Visit Provider Internal Medicine | DX: R00.0 Tachycardia, unspecified (principal); I49.3 Ventricular premature depolarization | CPT/HCPCS: 93010 ==

== ENCOUNTER 2025-03-02 20:58 | Outpatient (BNV) | payer SELFPAY | END 2025-03-13 14:50 | PROVIDERS: Admitting Provider Physician Assistant Medical; Emergency Provider Emergency Medicine; PCP Family Medicine; Visit Provider Radiology Diagnostic Radiology | DX: L02.11 Cutaneous abscess of neck (principal) | CPT/HCPCS: 70491 ==

== ENCOUNTER 2025-03-02 20:58 | Outpatient (BNV) | payer SELFPAY | END 2025-03-03 00:45 | PROVIDERS: Admitting Provider Physician Assistant Medical; Emergency Provider Emergency Medicine; PCP Family Medicine; Visit Provider Radiology Diagnostic Radiology | DX: R18.8 Other ascites (principal); K57.30 Diverticulosis of large intestine without perforation or abscess without bleeding | CPT/HCPCS: 74176 ==

== ENCOUNTER → 2025-03-02 20:58 | Outpatient (BNV) | payer SELFPAY | PROVIDERS: Admitting Provider Physician Assistant Medical; Emergency Provider Emergency Medicine; PCP Family Medicine; Visit Provider Family Medicine | DX: K66.8 Other specified disorders of peritoneum (principal); K65.2 Spontaneous bacterial peritonitis; A41.9 Sepsis, unspecified organism; R65.21 Severe sepsis with septic shock; A42.9 Actinomycosis, unspecified | CPT/HCPCS: 99232 ==

== ENCOUNTER → 2025-03-02 20:58 | Outpatient (BNV) | payer SELFPAY | PROVIDERS: Admitting Provider Physician Assistant Medical; Emergency Provider Emergency Medicine; PCP Family Medicine; Visit Provider Surgery | DX: A41.9 Sepsis, unspecified organism (principal); R65.20 Severe sepsis without septic shock; K66.8 Other specified disorders of peritoneum; K52.9 Noninfective gastroenteritis and colitis, unspecified | CPT/HCPCS: 99223; 99499 ==

== ENCOUNTER → 2025-03-02 20:58 | Outpatient (BNV) | payer SELFPAY | PROVIDERS: Admitting Provider Physician Assistant Medical; Emergency Provider Emergency Medicine; PCP Family Medicine; Visit Provider Internal Medicine Critical Care Medicine | DX: K65.2 Spontaneous bacterial peritonitis (principal); A41.9 Sepsis, unspecified organism; R65.21 Severe sepsis with septic shock | CPT/HCPCS: 32555; 99291; 99292 ==

== ENCOUNTER → 2025-03-02 20:58 | Outpatient (BNV) | payer SELFPAY | PROVIDERS: Admitting Provider Physician Assistant Medical; Emergency Provider Emergency Medicine; PCP Family Medicine; Visit Provider Internal Medicine | DX: A42.9 Actinomycosis, unspecified (principal); K65.2 Spontaneous bacterial peritonitis; A41.9 Sepsis, unspecified organism; R65.21 Severe sepsis with septic shock | CPT/HCPCS: 99222 ==

== ENCOUNTER 2025-03-21 15:12 | Outpatient (AMB) | payer MEDICARE, SELFPAY ==
--- OUTSIDE RECORDS SUMMARY | 2023-11-23 09:38 | XMS_ITS ---
Author Organization [facility] Address [address] [place] [address] Care Team Providers Care Personal Lines Agent Name Role Phone Chris Menezes Primary Care Provider REASON FOR VISIT Rehab Encounters Encounter Location Date Provider Diagnosis Chris Menezes Md [address] [place], [place] [id number] 11/23/2023 Chris Menezes PLAN OF TREATMENT No Information
--- OUTSIDE RECORDS SUMMARY | 2023-12-16 05:23 | XMS_ITS ---
[facility] Address [address] [place] [address] Care Team Providers Care Laboratory Animal Facility Supervisor Name Role Phone OchoaChris arriaga Primary [...] Encounters Encounter Location Date Provider Diagnosis [place] [address] [address] 12/16/2023 Chris Menezes Neuropathy G62.9 ; T [...]
--- OUTSIDE RECORDS SUMMARY | 2023-12-23 06:15 | XMS_ITS ---
Author Organization [facility] Address [address] [place] [address] Care Team Providers Care Redevelopment Manager Name Role Phone Kelseabj Chris Primary Care Provider ALLERGIES No Known Allergies REASON FOR VISIT NO SHOW (IN OFFICE), Follow Up MEDICATIONS Medication SIG (Take, Route, Frequency, Duration) Notes Start Date End Date Status Lisinopril 5 MG 1 tablet Orally Once a day for 30 day(s) Active Magnesium 400 MG as directed Orally Active Thiamine HCl 100 MG 1 tablet Orally Twic e a day Active Rosuvastatin Calcium 10 MG 1 tablet Oral ly Once a day for 30 day(s) Active Folic Acid 1 MG 1 tablet Orally Once a day for 30 day(s) Active metFORMIN HCl 1000 MG TAKE ONE TABLET BY MOUTH EVERY DAY Active Rosuvastatin Calcium 10 MG TAKE ONE TABL ET BY MOUTH EVERY DAY for 90 Active Furosemide 20 MG TAKE ONE TABLET BY M OUTH EVERY DAY Active Amitriptyline HCl 25 MG 1 tablet at bedt britta Orally Once a day Active Lisinopril 5 MG 1 tablet Orally Once a day for 90 days Active Rosuvastatin Calcium 10 MG 1 tablet Oral ly Once a day Active Lisinopril 20 MG 1 tablet Orally Twic e a day Active SOCIAL HISTORY Tobacco Use: Social History Observation Description Date Details (start date - stop date) Never Smoker NA - NA Sex Assigned At : Social History Observation Description Sex Assigned At Unknown Tobacco Use/Smoking Question Answer Notes Are you a nonsmoker Alcohol Screen Question Answer Notes Did you have a drink contain ing alcohol in the past year? Yes How often did you have a dri nk containing alcohol in the past year? 4 or more times a week (4 points) How many drinks did you have on a typical day when you were drinking in the past year? 3 or 4 drinks (1 point) How often did you have 6 or more drinks on one occasion in the past year? Never (0 point) Points 5 Interpretation Positive Encounters Encounter Location Date Provider Diagnosis [facility], [address] [place] [address] 12/23/2023 Chris Menezes Type 2 diabetes bj itus with other diabetic kidney complication E11.29 ; Type 2 diabetes mellitus with diabetic mononeuropathy, without long-term current use of insulin E11.41 ; Essential hypertension I10 ; Mixed hyperlipidemia E78.2 and Neuropathy G62.9 ASSESSMENTS Encounter Date Diagnosis Assessment Notes Treatment Notes Treatment Clinical Notes Section Notes 12/23/2023 Type 2 diabetes mellitus with other diabetic kidney complication (ICD-10 - E11.29) 12/23/2023 Type 2 diabetes mellitus with diabetic mononeuropathy, without long-term current use of insulin (ICD-10 - E11.41) 12/23/2023 Essential hypertension (ICD-10 - I10) 12/23/2023 Mixed hyperlipidemia (ICD-10 - E78.2) 12/23/2023 Neuropathy (ICD-10 - G62.9) Patient was advised to start with half a tablet daily at bedtime in the beginning and gradually increase the dose. 12/23/2023 Other This chart has been transcribed by a computerized dictation system. There are likely to be multiple vat overhauler inaccuracies despite chart review. PLAN OF TREATMENT Medication Medication Name Sig Start Date Stop Date Notes metFORMIN HCl 1000 MG TAKE ONE TABLET BY MOUTH EVERY DAY Furosemide 20 MG TAKE ONE TABLET BY M OUTH EVERY DAY Amitriptyline HCl 25 MG 1 tablet at bedt britta Orally Once a day Rosuvastatin Calcium 10 MG 1 tablet Orally Once a day Lisinopril 20 MG 1 tablet Orally Twice a day Treatment Notes Assessment Notes Neuropathy Patient was advised to start with half a tablet daily at bedtime in the beginning and gradually increase the dose. Other This chart has been transcribed by a computerized dictation system. There are likely to be multiple vat overhauler inaccuracies despite chart review. Progress Notes * Examination Category Sub-Category Detail Notes Category Not es General Examination GENERAL APPEARANCE: in no ac fernando distress, well developed, well nourished HEAD: normocephalic, atrau matic EYES: pupils equal, round, reactive to light and accommodation THROAT: clear, no erythema, uvula midline, no exudate NECK/THYROID: neck supple, no thyr omegaly, trachea midline, no carotid bruit HEART: no murmurs, regular rate and rhythm, S1, S2 normal LUNGS: clear to auscultatio n bilaterally ABDOMEN: soft, nontender, non distended, no organomegaly , bowel sounds present NEUROLOGIC: alert and oriented x 3, nonfocal SKIN: no suspicious lesion s, warm and dry EXTREMITIES: no clubbing, cyanosi s, or edema PERIPHERAL PULSES: normal, 2+ throughou t MUSCULOSKELETAL: normal, full range o f motion LYMPH NODES: no cervical, axillar y, supraclavicular or inguinal adenopathy PSYCH: cognitive function i ntact, mood/affect full range ORAL CAVITY: mucosa moist, no les ions, palate normal, tongue in midline, well papillated History and Physical Notes * HPI (History of Present Illness) Category Sub-Category Detail Notes Category Not es Symptom(s) 68-year-old mal e patient with history of hypertension, hyperlipidemia, DM 2, anxiety, DJD lumbosacral spine, and allergic rhinitis is here for his annual physical exam. I discussed his lab results with him during the visit which are within acceptable range except albuminuria. Patient is compliant with his medications and any side effects. His blood pressure is well-controlled. He denies chest pain, palpitation, or shortness of breath. He tells me that he is under a lot of stress at work. He has not been taking buspirone. I renewed his prescription during the visit.
--- OUTSIDE RECORDS SUMMARY | 2024-04-18 07:21 | XMS_ITS ---
Author Organization [facility] Address [address] [place] [address] Care Team Providers Care Technical Support Internship Name Role Phone Chris Menezes Primary Care Provider REASON FOR VISIT No Shows Encounters Encounter Location Date Provider Diagnosis [facility] [address] [place] [address] 04/18/20 24 Chris Menezes PLAN OF TREATMENT No Information
--- NOTE | 2025-03-21 15:17 | A.OFFVIS_ITS ---
Vital Signs 03/21/25 15:25 Pulse 67 Pulse Source Pulse Oximeter Pulse Oximetry (%) 99 Oxygen Delivery Method Room Air Intake Visit Reasons: [facility] Reff/ Allergies No Known Allergies Allergy (Verified 03/21/25 15:29) HPI Comments Details: History of Present Illness The patient is a 69-year-old male presenting with actinomycosis. He has a confirmed diagnosis of actinomycosis from a blood culture taken on 03-02, following a hospital admission. He was managed with doxycycline 100 mg PO BID upon hospital discharge. The patient reports no negative effects from the medication and describes no current symptoms such as cough, fever, or chills. He adheres to his medication regimen and shows stable progress without additional complaints. Review of Systems - Respiratory: Denies cough, fever, and chills. Physical Exam - Respiratory- Lungs clear to auscultation bilaterally. - Cardiovascular- Regular heart rate and rhythm. - Abdomen- Soft and nontender. - Extremities- Non-tender. Results - Labs: Blood culture on 03-02 positive for Actinomyces species. Plan Patient was informed and verbally consented to the use of an ambient scribe for clinic note documentation during this visit. 1. Actinomycosis, unspecified A42.9 We continue doxycycline 100 mg PO BID due to its effectiveness against Actinomyces. The patient is currently symptom-free and stable on this treatment. Follow-up in a couple of months is scheduled to ensure complete resolution and monitor for any recurrence. Discussion Notes During the visit, I discussed with the patient the diagnosis of actinomycosis and the ongoing treatment plan with doxycycline. We reviewed the importance of adherence to this regimen to ensure complete resolution of the infection. I explained the anticipated outcomes and the need for vigilance for any recurrence of symptoms, such as cough or fever. A follow-up appointment in a couple of months was arranged to reassess his condition. The patient expressed understanding and agreement with the management plan. Medical Decision Making The patient's previous blood culture confirmed the diagnosis of actinomycosis. The choice of doxycycline is based on its efficacy in treating actinomycosis by inhibiting bacterial protein synthesis. The patient remains asymptomatic, conf irming the treatment's effectiveness. I decided to maintain the current regimen given the patient's stable condition and anticipated a favorable prognosis with continued therapy. Follow-up is scheduled to monitor progress and ensure long- term resolution. Patient Instructions - Continue taking doxycycline 100 mg twice daily as prescribed. - Report any new symptoms such as cough, fever, or chills immediately. - Follow up in two months or sooner if symptoms reoccur. [facility] Medical History (Updated 03/22/25 @ 00:02 by Digna Cruz) Actinomycosis Social History Housing: Other Housing Other:: [facility] Alcohol intake: former Patient Tobacco Use Status: Former Tobacco user Advance Directives Date on File: 03/02/25 service: No Physical Exam Vital Signs: Last Vital Signs Pulse 67 03/21/25 15:25 Pulse Ox 99 03/21/25 15:25 Oxygen Delivery Method Room Air 03/21/25 15:25 Assessment & Plan Assessment & Plan (1) Actinomycosis: Code(s): A42.9 - Actinomycosis, unspecified Category: Medical Plan: na Orders: Orders XR chest 2V 03/21/25 A42.9 - Actinomycosis, unspecified IR cvc remove any age 1003/21/25 A42.9 - Actinomycosis, unspecified Medications: New doxycycline hyclate 100 mg PO BID 60 caps 3RF 30 days Coding Level of Care Code Est Pt Level 3 (82787) Diagnoses Actinomycosis A42.9
[2025-03-21 15:25] VITALS: PULSE 67; O2SAT 99
--- OUTSIDE RECORDS SUMMARY | 2025-03-21 21:25 | XMS_ITS | Patient Health Record ---
[facility] [address] [place] [address] Care Team Providers Care Sheep Shearer Name Role Phone Chris Menezes Primary Care [...] HCl 25 MG 1 tablet at bedt birtta Orally Once a day Active Lisinopril 5 [...] Code Notes Problem Anxiety (F41.9) Active confirmed 744138 02 Problem Neuropathy (G62.9) Active confirmed 351494102 Problem Anxiety disorder, unspecified (F41.9) Active confirmed Anxiety disorde r (813158356) Problem Generalized anxiety disorder (F41.1) Active confirmed 29068793 Problem Type 2 diabetes mellitus 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) Active confirmed 01075559 Problem Primary insomnia (F51.01) Active confirmed 1929353 Problem Mixed hyperlipidemia (E78.2) Active confirmed 588332263 Problem Obstructive sleep apnea (G47.33) Active confirmed 40109343 Problem Type 2 diabetes mellitus without complication (E11.9) Active confirmed Type II diabete s mellitus without complication (393213908) Problem Essential hypertension (I10) Active confirmed 11538097 Problem Allergic rhinitis, unspecified allergic rhinitis type (J30.9) Active confirmed 88816843 Problem Osteoarthritis of both hips, unspecified osteoarthritis type (M16.0) Active confirmed 676790209 Problem assisted (current) use of oral hypoglycemic drugs (Z79.84) Active confirmed [id number] Problem Type 2 diabetes mellitus with diabetic mononeuropathy, without long-term current use of insulin (E11.41) Active confirmed Mononeuropa thy associated with type II diabetes mellitus (374439662) Encounters Encounter Location Date Provider Diagnosis [facility] [address] [address] 04/18/20 24 Chris Menezes PLAN OF TREATMENT Pending Test Test Name Order Date MRI : Lumbosacral Spines 01/18/2017 Colonoscopy 01/29/2022 GUAIAC, SINGLE SPECIMEN 12/19/2019 GUAIAC, SINGLE SPECIMEN 11/30/2017 GUAIAC, SINGLE SPECIMEN 11/23/2016 GUAIAC, SINGLE SPECIMEN 10/11/2015 *EKG 12/20/2012 Drain/Inject Joint/Bursa (MEDIUM) 2017 PSA 11/23/2016 PSA 06/21/2014 PSA 10/01/2015 PSA 07/20/2017 PSA 07/10/2019 HEMOGLOBIN A1C 07/10/2019 HEMOGLOBIN A1C 04/22/2016 HEMOGLOBIN A1C 07/20/2017 HEMOGLOBIN A1C 12/19/2019 HEMOGLOBIN A1C 12/24/2020 HEMOGLOBIN A1C 06/10/2015 HEMOGLOBIN A1C 07/23/2016 HEMOGLOBIN A1C 01/14/2016 HEMOGLOBIN A1C 06/21/2014 HEMOGLOBIN A1C 11/23/2016 HEMOGLOBIN A1C 10/01/2015 HEMOGLOBIN A1C 10/05/2014 HEMOGLOBIN A1C 01/28/2015 HEMOGLOBIN A1C 03/16/2017 HEMOGLOBIN A1C 03/06/2014 COMPREHENSIVE METABOLIC PANL 06/21/2014 COMPREHENSIVE METABOLIC PANL 10/01/2015 COMPREHENSIVE METABOLIC PANL 07/20/2017 COMPREHENSIVE METABOLIC PANL 07/10/2019 LIPID PANEL 04/22/2016 LIPID PANEL 07/10/2019 LIPID PANEL 07/20/2017 LIPID PANEL 12/24/2020 LIPID PANEL 06/21/2014 LIPID PANEL 01/28/2015 LIPID PANEL 11/23/2016 HEPATIC FUNCTION PANEL 11/23/2016 HEPATIC FUNCTION PANEL 01/28/2015 HEPATIC FUNCTION PANEL 12/24/2020 HEPATIC FUNCTION PANEL 04/22/2016 THYROID PANEL 07/20/2017 THYROID PANEL 07/10/2019 THYROID PANEL 06/21/2014 THYROID PANEL 10/01/2015 URINARY [...] 07/20/2017 COMPLETE URINALYSIS 07/10/2019 25OH VITAMIN D 12/15/2022 25OH VITAMIN D 10/21/2021 AMMONIA, VENOUS 01/29/2022 CBC (COMPLETE BLOOD COUNT) WITH DIFF CBC (COMPLETE BLOOD COUNT) WITH DIFF COMPREHENSIVE METABOLIC PANEL 10/21/2021 COMPREHENSIVE METABOLIC PANEL 12/15/2022 GGTP 01/29/2022 HEMOGLOBIN A1C 01/29/2022 HEMOGLOBIN A1C 04/09/2021 HEMOGLOBIN A1C 12/15/2022 HEMOGLOBIN A1C 04/28/2023 HEMOGLOBIN A1C 05/05/2022 HEMOGLOBIN A1C 10/21/2021 HEPATIC FUNCTION PANEL 05/05/2022 LIPID PANEL 05/05/2022 LIPID PANEL 12/15/2022 LIPID PANEL 10/21/2021 MICROALBUMIN, URINE 10/21/2021 MICROALBUMIN, URINE 12/15/2022 PSA, SCREEN 12/15/2022 PSA, SCREEN 10/21/2021 THYROID PANEL (TSH, FT4) 10/21/2021 THYROID PANEL (TSH, FT4) 12/15/2022 URINALYSIS, COMPLETE 12/15/2022 URINALYSIS, COMPLETE 10/21/2021 Insurance Providers Payer Name Payer Address Payer Phone Subscriber Number Group Number Insured Name Patient Relationship to Insured Coverage Start Date Coverage End Date [facility] [address] [place] [address] [id number] Maxim Rice Self - patient is the insured MEDICAL (GENERAL) HISTORY Medical History History ICD Code HTN DM2 Hyperlipidemia COPD Sleep Apnea Allergic Rhinitis Surgical History Surgery Date(Month/Year) tonsillectomy as a child Hospitalization History Reason Date(Month/Year) for above procedure
== END 2025-03-21 15:48 | disposition home or self-care (01) ==
PROVIDERS: PCP Family Medicine; Visit Provider Internal Medicine
DX: A42.9 Actinomycosis, unspecified (principal)
CPT/HCPCS: 99213

== ENCOUNTER 2025-03-21 15:12 | Outpatient (REF) | payer MEDICARE, SELFPAY ==
--- NOTE | ~2025-03-21 | XR_ITS ---
EXAMINATION: XR CHEST CLINICAL INFORMATION: A42.9 - Actinomycosis, unspecified COMPARISON: 03/02/[address] of the chest. TECHNIQUE: 2 views of the chest were obtained. FINDINGS: Heart size is top normal. Mediastinal and hilar contours appear normal. Aortic mural calcifications. Lungs demonstrate minimal opacity abutting the right hemidiaphragm, with subtle blunting of the right costophrenic angle suggesting a tiny effusion. The left lung appears clear. There is no pneumothorax or pleural effusion. There is no focal osseous or soft tissue abnormality. There are spinal degenerative changes. XR/XR chest 2V IMPRESSION: 1. Minimal residual airspace opacity abutting the right hemidiaphragm, with subtle blunting of the right costophrenic angle suggesting a tiny effusion. This appears improved from the prior recent CT. Electronically signed by: Melquiades Suggs MD 03/21/2025 04:51 PM EDT
== END 2025-03-21 15:13 | disposition home or self-care (01) ==
LOC: HO.XRAY 15:12
PROVIDERS: Visit Provider Internal Medicine
DX: A42.9 Actinomycosis, unspecified (principal)
CPT/HCPCS: 71046; 99212

== ENCOUNTER → 2025-03-21 16:19 | Outpatient (BNV) | payer MEDICARE, SELFPAY | PROVIDERS: Visit Provider Radiology Diagnostic Radiology | DX: R91.8 Other nonspecific abnormal finding of lung field (principal) | CPT/HCPCS: 71046 ==